=== PATIENT | female | born 1955 | race African-American/Black ===

== ENCOUNTER 2017-01-03 08:27 | Day surgery (SDC) | payer MEDICARE, OTHER ==
[2017-01-02 08:32] VITALS: BMI 59.5
--- NOTE | 2017-01-03 07:55 | P.GSHP ---
History of Present Illness H&P Date: 01/03/17 CHIEF COMPLAINT: Dysphagia with history of gastric bypass HISTORY OF PRESENT ILLNESS: The patient is a 60-year-old female who reports dysphagia with history of gastric bypass. In the past she had upper endoscopy with balloon dilatation. Now she presents for further evaluation and management. PAST MEDICAL HISTORY: See list PAST SURGICAL HISTORY: See list CURRENT MEDICATIONS: See list. ALLERGIES: Nickel SOCIAL HISTORY: No active tobacco use FAMILY HISTORY: Obesity. REVIEW OF ORGAN SYSTEMS: CONSTITUTIONAL: Denies any fever or chills. HEENT: Denies any trouble with vision, hearing or nosebleeds. Has difficulty swallowing. LYMPHATIC: The patient denies any lumps and bumps around the neck. GASTROINTESTINAL: Has gastric bypass with dysphagia. GENITOURINARY: Denies any blood in urine or increased urinary frequency. PHYSICAL EXAMINATION: Vital signs: Stable. GENERAL: Well developed and in no acute distress. Pleasant. HEENT: No sclera icterus. Extraocular movements grossly intact. Moist buccal mucosa. Head is atraumatic, normocephalic. Hears conversational speech. No nasal drainage. NECK: Supple without lymphadenopathy. No JV distention. CHEST: Non-labored respirations and equal bilateral excursions. CARDIOVASCULAR: Regular rate and rhythm. Palpable 2+ radial pulses. ABDOMEN: Nontender. Nondistended. MUSCULOSKELETAL: No clubbing, cyanosis or edema. NEUROLOGIC: No focal or lateralizing signs. PSYCH: Appropriate affect. Alert and oriented to person, place and time. ASSESSMENT: 1. GERD. 2. Dysphagia. 3. History of gastric bypass. PLAN: 1. Recommend upper endoscopy with possible balloon dilation. Past Medical History Past Medical History: Asthma, GERD/Reflux, Hypertension, Rheumatoid Arthritis ( RA), Sleep Apnea/CPAP/BIPAP Additional Past Medical History / Comment(s): HEART MURMUR, ANEMIA, irregular heartbeat, nausea and rt side abdominal pain, rash on rt leg, History of Any Multi-Drug Resistant Organisms: None Reported Past Surgical History: Bariatric Surgery, Joint Replacement, Tonsillectomy, Tubal Ligation, Uterine Ablation Additional Past Surgical History / Comment(s): GASTRIC BYPASS, BRAYAN TOTAL KNEE REPLACEMENT, D&C. Past Anesthesia/Blood Transfusion Reactions: No Reported Reaction Past Psychological History: Anxiety Smoking Status: Never smoker Past Alcohol Use History: None Reported Past Drug Use History: None Reported - Past Family History Father Family Medical History: Cancer Additional Family Medical History / Comment(s): LIVER CANCER Medications and Allergies Home Medications Medication Instructions Recorded Confirmed Type Albuterol Sulfate [Proair Hfa] 2 puff INHALATION Q6HR PRN 02/04/15 01/02/17 History Aspirin 325 mg PO DAILY 02/04/15 01/02/17 History Cyanocobalamin [Vitamin B-12] 1,000 mcg PO DAILY 02/04/15 01/02/17 History Losartan/Hydrochlorothiazide 1 each PO DAILY 02/04/15 01/02/17 History [Hyzaar 100-25 Tablet] Multivitamins, Thera [Theragran] 1 each PO DAILY 02/04/15 01/02/17 History Ergocalciferol [Vitamin D2] 50,000 unit PO QMONTH 11/04/15 01/02/17 History Biotin 5,000 mcg PO DAILY 01/02/17 01/02/17 History Calciumcalcium Magnesium,Zinc 1 tab PO DAILY 01/02/17 01/02/17 History Furosemide [Lasix] 20 mg PO DAILY 01/02/17 01/02/17 History Nystatin [Nystop] 1 applic TOPICAL DAILY 01/02/17 01/02/17 History Omeprazole 20 mg PO BID 01/02/17 01/02/17 History amLODIPine [Norvasc] 5 mg PO DAILY 01/02/17 01/02/17 History tiZANidine HCL 4 mg PO BID PRN 01/02/17 01/02/17 History Allergies Allergy/AdvReac Type Severity Reaction Status Date / Time nickel Allergy Unknown Rash/Hives Verified 01/02/17 08:15
[~2017-01-03 08:27] MED LIST: LACTATED RINGERS 1,000 ML IV SCH
[2017-01-03 09:48] VITALS: RESP 16; TEMP 97.1
[2017-01-03] MEDS ORDERED: LIDOCAINE 1% 20 ML VIAL (10MG/ML) FOR IV START INTRADERMA ONE (09:50)
[2017-01-03] MEDS ORDERED: MIDAZOLAM 2 MG/2 ML VIAL ONE (10:59)
[2017-01-03] MEDS ORDERED: LIDOCAINE 1% INJ 10MG/ML (20 ML MDV) ONE (10:59)
[2017-01-03] MEDS ORDERED: GLYCOPYRROLATE 0.2 MG/ML 2 ML VIAL ONE (10:59)
[2017-01-03] MEDS ORDERED: KETAMINE 10 MG/ML 20 ML VIAL ONE (10:59)
[2017-01-03] MEDS ORDERED: PROPOFOL 10 MG/ML 20 ML VIAL IV ONE (10:59)
[2017-01-03 12:00] VITALS: BP 131/82; PULSE 86
--- NOTE | 2017-01-03 12:28 | P.PCN ---
Date of Procedure: 01/03/17 Description of Procedure: PREOPERATIVE DIAGNOSIS: Dysphagia. s/p Jacobo-en-y gastric bypass. Nausea with vomiting. Morbid obesity. Epigastric abdominal pain. Weight regain following gastric bypass. Body mass index 59.5. POSTOPERATIVE DIAGNOSIS: Dysphagia. s/p Jacobo-en-y gastric bypass. Nausea with vomiting. Morbid obesity. Epigastric abdominal pain. Weight regain following gastric bypass. Body mass index 59.5. Diaphragmatic hiatal hernia. 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 SURGEON: Suzette Packer MD ANESTHESIA: MAC. INDICATIONS: The patient is a 61-year-old female who presents with a history of dysphagia, gastric bypass including epigastric abdominal pain, nausea and vomiting. Benefits and risks of the procedure were described. Informed consent was obtained. DESCRIPTION: The patient was brought into the endoscopy suite and laid in the left lateral decubitus position. After a timeout was confirmed, the procedure was initiated. An Olympus gastroscope was passed along the posterior oropharynx down to the distal esophagus where the squamocolumnar junction was unremarkable. The gastric pouch was entered. A gastrojejunal stricture of 18 mm was found as the adult gastroscope was 9.5 mm in size. A [email or web address] balloon dilator was placed through the scope. Final insufflation up to 20 mm was performed with a total of 1 minute. The scope was advanced up to 60 cm from the incisors into the Jacobo limb. The mucosa of the gastrojejunal anastomosis was intact. However mild chronic gastrojejunal marginal ulcer was encountered. No full-thickness injury was encountered. A Frances junction was found at 40 cm from the incisors. Diaphragmatic hiatus was found at 43 cm from the incisors. The anastomosis was confirmed at 52 cm from the incisors. At the gastric cardia, a persistent tract consistent with gastric fistula was encountered. The GI tract was desufflated. The patient tolerated the procedure well. FINDINGS: Squamocolumnar junction unremarkable at 40 cm. Gastrojejunal stricture of approximately 18 mm. Chronic gastrojejunal ulceration, mild. Successful balloon dilatation to 20 mm. Diaphragmatic hiatus at 43 cm. Anastomosis at 52 cm from the incisors. Diaphragmatic hernia, 3 cm fixed. Large gastric pouch, 9 cm. Small gastric fistula along gastric cardia to gastric pouch. RECOMMENDATIONS: Zantac for 14 days advised. May benefit from revision of gastric pouch. cc: Dr. Rodriguez, [facility] – [place] Plan - Discharge Summary Discharge Medication List Albuterol Sulfate [Proair Hfa] 2 puff INHALATION Q6HR PRN 02/04/15 [History] Aspirin 325 mg PO DAILY 02/04/15 [History] Cyanocobalamin [Vitamin B-12] 1,000 mcg PO DAILY 02/04/15 [History] Losartan/Hydrochlorothiazide [Hyzaar 100-25 Tablet] 1 each PO DAILY 02/04/15 [ History] Multivitamins, Thera [Theragran] 1 each PO DAILY 02/04/15 [History] Hydrocodone/Acetaminophen [[place] 5-325] 1 each PO Q6HR PRN #10 tab 03/29/15 [Rx] Ergocalciferol [Vitamin D2] 50,000 unit PO QMONTH 11/04/15 [History] Biotin 5,000 mcg PO DAILY 01/02/17 [History] Calciumcalcium Magnesium,Zinc 1 tab PO DAILY 01/02/17 [History] Furosemide [Lasix] 20 mg PO DAILY 01/02/17 [History] Nystatin [Nystop] 1 applic TOPICAL DAILY 01/02/17 [History] Omeprazole 20 mg PO BID 01/02/17 [History] amLODIPine [Norvasc] 5 mg PO DAILY 01/02/17 [History] tiZANidine HCL 4 mg PO BID PRN 01/02/17 [History] Follow up Appointment(s)/Referral(s): Suzette Packer MD [STAFF PHYSICIAN] - As Needed Patient Instructions/Handouts: *[facility] - (Anesthesia) Endoscopy Discharge Instructions, Esophageal Dilation (DC) Activity/Diet/Wound Care/Special Instructions: Diet as tolerated Discharge Disposition: HOME SELF-CARE
== END 2017-01-03 12:45 | disposition home or self-care (01) ==
LOC: ORWHC2ENDO 08:27
PROVIDERS: ATTEND Surgery Plastic and Reconstructive Surgery
DX: K31.89 Other diseases of stomach and duodenum (principal); R13.10 Dysphagia, unspecified; K21.9 Gastro-esophageal reflux disease without esophagitis; K44.9 Diaphragmatic hernia without obstruction or gangrene; K31.6 Fistula of stomach and duodenum; R11.2 Nausea with vomiting, unspecified; E66.01 Morbid (severe) obesity due to excess calories; Z68.43 Body mass index [BMI] 50.0-59.9, adult; R10.13 Epigastric pain; Z98.84 Bariatric surgery status; J45.909 Unspecified asthma, uncomplicated; I10 Essential (primary) hypertension; M06.9 Rheumatoid arthritis, unspecified; G47.30 Sleep apnea, unspecified; Z91.09 Other allergy status, other than to drugs and biological substances
CPT/HCPCS: 43245; J2250; J2001; J2704; C1726; 43249

== ENCOUNTER → 2017-01-25 | Outpatient (CLI) | payer MEDICARE, OTHER ==
--- NOTE | 2017-01-25 11:33 | FL ---
EXAMINATION TYPE: FL UGI w KUB DATE OF EXAM: 01/25/2017 9:42 AM COMPARISON: Prior exam 16 April 2015 HISTORY: Gastric fistula, hiatal hernia, abdominal pain TECHNIQUE: A double contrast UGI study is performed. FINDINGS: Swallowing mechanism is normal. The esophagus shows normal motility and emptying into the s tomach. At the level of the distal esophagus there is an outpouching perhaps related to patient's anson zeeshan. This fills with air and contrast. Stomach is small. There is normal transit into the small jordan l. No evident fistula. Possible narrowing of the distal esophagus. IMPRESSION: Postop change as described.
== END | disposition home or self-care (01) ==
LOC: RADFLWHC 08:45
PROVIDERS: ATTEND Family Medicine
DX: K31.6 Fistula of stomach and duodenum (principal); Z98.890 Other specified postprocedural states
CPT/HCPCS: 74241

== ENCOUNTER → 2017-03-28 | Outpatient (CLI) | payer MEDICARE, OTHER ==
--- NOTE | 2017-03-29 11:24 | MM ---
Reason for exam: screening (asymptomatic). Last mammogram was performed 1 year and 2 months ago. History: Patient is postmenopausal. Family history of breast cancer in paternal aunt at age 50. Took hormonal contraceptives for 1 year 6 months beginning at age 19. Took estrogen for 1 month. Physical Findings: A clinical breast exam by your physician is recommended on an annual basis and results should be correlated with mammographic findings. MG 3D Screening Mammo W/Cad Bilateral CC and MLO view(s) were taken. Prior study comparison: January 19, 2016, bilateral MG screening mammo w CAD. October 23, 2013, CAD bilateral diagnostic mammogram. The breast tissue is almost entirely fat. There is no discrete abnormality. No significant changes when compared with prior studies. ASSESSMENT: Negative, BI-RAD 1 RECOMMENDATION: Routine screening mammogram of both breasts in 1 year.
== END | disposition home or self-care (01) ==
LOC: RADMAMWWP 08:07
PROVIDERS: ATTEND Family Medicine
DX: Z12.31 Encounter for screening mammogram for malignant neoplasm of breast (principal)
CPT/HCPCS: 77063; G0202

== ENCOUNTER → 2017-04-10 | Outpatient (CLI) | payer MEDICARE, OTHER ==
--- NOTE | 2017-04-10 11:13 | WWHP ---
DATE OF SERVICE: 04/10/2017 CHIEF COMPLAINT: The patient is here for her routine gynecologic exam. HPI: This is a 62-year-old, G2, P2 with an LMP of 2012. She is status post endometrial ablation in 2012. She is without gynecologic complaints and denies any postmenopausal bleeding. PAST MEDICAL HISTORY: Chronic hypertension, arthritis, sleep apnea, asthma, obesity, and chronic low back pain. MEDICATIONS: 1. Amlodipine 10 mg daily. 2. Losartan hydrochlorothiazide 100/25 mg daily. 3. Furosemide 20 mg daily. 4. Tizanidine HCl 4 mg at bedtime. 5. [place] 10/325 q.6 hours p.r.n. 6. Cyclobenzaprine 10 mg b.i.d. 7. Vitamin D 50,000 units monthly. 8. Multivitamin daily. Allergies to NICKEL. There are no known drug allergies. PAST SURGICAL HISTORY: Tubal ligation, right and left knee replacement surgery, gastric bypass in 2011, D&C in 2012, upper endoscopy with esophageal dilatation 2016. 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 SOCIAL HISTORY: She denies tobacco, alcohol, and drug use. She has been since 1993 and is considered disabled. Family history is unchanged from the 2016 H&P. REVIEW OF SYSTEMS: She has gained about 35 pounds over the last year. This was after losing about 250 pounds after her gastric bypass. She denies respiratory or cardiac problems. GI: She occasionally feels like she does not completely evacuate her bowels with bowel movement. PHYSICAL EXAM: Blood pressure 133/80. Height 5 feet 7 inches. Weight 385 pounds. Temperature 98.4, pulse 78. This is a well-developed, obese black female who is alert and oriented x3 in no acute distress. HEENT is within normal limits. NECK: Supple without mass or thyromegaly. CHEST AND LUNGS: Clear to auscultation. HEART: Regular rate and rhythm. Breasts are without mass or discharge. Axillary exam is negative for adenopathy. BACK: Negative for CVA tenderness. ABDOMEN: Morbidly obese, soft, nontender, without palpable masses. PELVIC EXAM: External genitalia appears normal without significant atrophy. Cervix and vagina appear normal without significant atrophy. There is no evidence of vaginal prolapse. The uterus is midposition, nongravid size and nontender. There are no palpable adnexal masses or tenderness. Bimanual examination is somewhat limited secondary to her size. Rectovaginal exam is negative for mass or tenderness and is negative for occult blood. EXTREMITIES: Nontender. IMPRESSION: 1. A 62-year-old menopausal female with normal gynecologic exam. 2. Obesity. PLAN: 1. Pap smear was deferred, since she had a negative Pap smear in 2016. 2. Self breast examination was discussed. 3. Mammogram was recently done on 03/28/2017 and was negative. She will repeat this in one year. 4. Osteoporosis prevention was discussed. I have recommended bone density screening since she has never had this done, and a slip was given to patient for this. 5. I recommended screening colonoscopy since she believes she either has not had this done or it has been more than 10 years. She states she will see Dr. Packer for this. 6. She will return in one year.
== END | disposition home or self-care (01) ==
LOC: WWCWWP 08:15
PROVIDERS: ATTEND Obstetrics & Gynecology
DX: Z53.9 Procedure and treatment not carried out, unspecified reason (principal)

== ENCOUNTER → 2017-05-08 | Outpatient (CLI) | payer MEDICARE, OTHER ==
--- NOTE | 2017-05-08 10:56 | BD ---
EXAMINATION TYPE: MG DEXA axial skeleton. DATE OF EXAM: 05/08/2017 COMPARISON: NONE CLINICAL HISTORY: Z78.0 POSTMENOPAUSAL STATUS Height: 66 Weight: 391 FRAX RISK QUESTIONS: Alcohol (3 or more units per day): NO Family History (Parent hip fracture): NO Glucocorticoids (More than 3mos): YES (Ex: prednisone, prednisolone, methylprednisolone, dexamethasone, and hydrocortisone). History of Fracture in Adulthood: NO Secondary Osteoporosis: NO 1. Type 1 Diabetes: NO 2. Hyperthyroidism: NO 3. Menopause before 45: NO 4. Malnutrition: NO 5. Chronic liver disease: NO Rheumatoid Arthritis: NO Current Tobacco Use: NO RISK FACTORS HISTORY OF: Family History of Osteoporosis: NO Active: SOMEWHAT Diet low in dairy products/other sources of calcium: NO Postmenopausal woman: 52 Hyperparathyroidism: LONG TIME AGO Adrenal Insufficiency: NO MEDICATIONS: Prednisone or other steroids: ASTHMA INHALERS AND PREDNISONE FOR ASTHMA How Long: FOR YRS Additional Medications: BP MEDS, XANAX, CALCIUM AND VIT D, REFLUX MEDS Additional History: BILAT TKRS EXAM MEASUREMENTS: Bone mineral densitometry was performed using the [employer]. Bone mineral density as measured about the Lumbar spine is: ----- L1-L4(G/cm2): 1.550 T Score Values are as follows: ----- L1: 2.5 ----- L2: 2.1 ----- L3: 3.2 ----- L4: 4.1 ----- L1-L4: 3.1 Bone mineral density THIS IS HER FIRST BONE DENSITY TEST.....BASELINE STUDY Bone mineral density about the R hip (g/cm2): 1.154 Bone mineral density about the L hip (g/cm2): 1.138 T Score values are as follows: -----R Neck: 0.7 -----L Neck: 0.2 -----R Total: 1.2 -----L Total: 1.0 Bone mineral density BASELINE STUDY FOR HER.... FRAX %'S: THERE IS A 1.9% CHANCE OF A MAJOR OSTEOPOROTIC FX AND A 0.0% CHANCE OF A HIP FX......PRO BABILITY IN 10 YRS TIME IMPRESSION: Normal (Values between +1 and -1 indicate normal bone mass). Consider repeating this study in 5 year s or sooner if there is some new clinical indication. FOR BOTH HIPS AND LUMBAR SPINE NOTE: T-SCORE=SD OF THE YOUNG ADULT MEAN.
== END | disposition home or self-care (01) ==
LOC: RADBDWWP 08:23
PROVIDERS: ATTEND Obstetrics & Gynecology
DX: Z78.0 Asymptomatic menopausal state (principal)
CPT/HCPCS: 77080

== ENCOUNTER → 2018-04-09 | Outpatient (CLI) | payer MEDICARE, OTHER ==
[2018-04-09 09:44] VITALS: BP 115/70; PULSE 63; TEMP 98.4; BMI 53.2
--- NOTE | 2018-04-09 10:27 | P.HPOB ---
History of Present Illness H&P Date: 04/09/18 Chief Complaint: The patient is here for her routine gynecologic exam and mammogram. This is a 63-year-old with an LMP of 2012. The patient is has noticed 2 boils in the groin area. She has noticed this recently and states she does not frequently get these boils. She is otherwise without complaints and denies any postmenopausal bleeding. Review of Systems Patient has lost 45 pounds over the last year. This has been with diet and exercise. She denies respiratory, cardiac, or G.I. problems. Past Medical History Past Medical History: Asthma, GERD/Reflux, Hypertension, Rheumatoid Arthritis ( RA), Sleep Apnea/CPAP/BIPAP Additional Past Medical History / Comment(s): HEART MURMUR, ANEMIA. Arthritis, sleep apnea, and chronic back pain. 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 She did have an endometrial ablation in 2012. History of Any Multi-Drug Resistant Organisms: None Reported Past Surgical History: Bariatric Surgery (Gastric bypass 2011), Joint Replacement (Bilateral knee replacement), Tonsillectomy, Tubal Ligation, Uterine Ablation Additional Past Surgical History / Comment(s): BRAYAN TOTAL KNEE REPLACEMENT, D&C. Upper endoscopy with esophageal dilatation 2016. Past Anesthesia/Blood Transfusion Reactions: No Reported Reaction Past Psychological History: Anxiety Smoking Status: Never smoker Past Alcohol Use History: None Reported Past Drug Use History: None Reported Additional History: She has been since 1993 and is disabled. - Past Family History Father Family Medical History: Cancer (Liver) Additional Family Medical History / Comment(s): Paternal aunt had breast cancer and an uncle had colon cancer. Mother Family Medical History: Diabetes Mellitus Medications and Allergies Home Medications Medication Instructions Recorded Confirmed Type Albuterol Sulfate [Proair Hfa] 2 puff INHALATION Q6HR PRN 02/04/15 04/09/18 History Aspirin 325 mg PO DAILY 02/04/15 04/03/18 History Cyanocobalamin [Vitamin B-12] 1,000 mcg PO DAILY 02/04/15 04/09/18 History Losartan/Hydrochlorothiazide 1 each PO DAILY 02/04/15 04/09/18 History [Hyzaar 100-25 Tablet] Multivitamins, Thera [Theragran] 1 each PO DAILY 02/04/15 04/09/18 History Ergocalciferol [Vitamin D2] 50,000 unit PO QMONTH 11/04/15 04/09/18 History Biotin 5,000 mcg PO DAILY 01/02/17 04/09/18 History Calciumcalcium Magnesium,Zinc 1 tab PO DAILY 01/02/17 04/09/18 History Furosemide [Lasix] 20 mg PO DAILY 01/02/17 04/09/18 History Nystatin [Nystop] 1 applic TOPICAL DAILY 01/02/17 04/09/18 History Omeprazole 20 mg PO BID 01/02/17 04/09/18 History amLODIPine [Norvasc] 5 mg PO DAILY 01/02/17 04/09/18 History B12/Levomefolate Calcium/B-6 tab PO DAILY 04/03/18 History [Foltx Tablet] Baclofen mg PO HS 04/03/18 History Benzoyl Peroxide [Benzac AC Wash] applicator TOPICAL DAILY 04/03/18 History Budesonide/Formoterol Fumarate gm INHALATION BID 04/03/18 History [Symbicort 80-4.5 Mcg Inhaler] Clindamycin Gel [Clindamycin applicator TOPICAL BID 04/03/18 History Phosphate] Dimethicone/Zinc Oxide [Inzo Zinc ml TOPICAL BID 04/03/18 History Oxide Barrier Cream] Magnesium Oxide mg PO DAILY 04/03/18 History Naproxen mg PO BID 04/03/18 History Triamcinolone 0.1% Ointment applicator TOPICAL BID 04/03/18 History [Kenalog 0.1% Ointment] oxyCODONE-APAP 10-325MG [Percocet tab PO Q6HR 04/03/18 History 10-325 mg] Allergies Allergy/AdvReac Type Severity Reaction Status Date / Time nickel Allergy Unknown Rash/Hives Verified 04/09/18 09:38 Exam - Vital Signs Vital signs: Vital Signs Temp Pulse BP 04/09/18 09:39 98.4 F 63 115/70 Intake and Output 04/08/18 04/09/18 04/09/18 22:59 06:59 14:59 Other: Weight 154.221 kg Height 5'7", BMI 53.3. This is a well-developed well-nourished obese black female who is alert and oriented times 3 in no acute distress. HEENT: Within normal limits. NECK: Supple without mass or thyromegaly. CHEST AND LUNGS: Clear to auscultation. HEART: Regular rate and rhythm. BREASTS: Are without mass or discharge. AXILLARY EXAM: Negative for adenopathy. BACK: Negative for CVA tenderness. ABDOMEN: obese, soft, nontender, without palpable masses. There is a large low abdominal panus. PELVIC EXAM: Normal external genitalia with minimal atrophy. There are 2 boils noted that the left buttock near the groin measuring 1.5 cm and one in the right groin area lateral to the right labia majora which also measures 1.5 cm. They both appear benign and non-erythematous. There is no drainage and no ulceration.. Cervix and vagina appear normal with minimal atrophy. There is no unusual discharge. There is no evidence of prolapse. The uterus is midposition , nongravid size and nontender. There are no palpable adnexal masses or tenderness. Bimanual examination somewhat limited secondary to her size. RECTAL EXAM: rectovaginal exam is negative for mass or tenderness and is negative for occult blood. EXTREMITIES: Nontender. IMPRESSION: 1. 63-year-old menopausal female with 2 benign appearing boils in the groin and buttock areas. Otherwise unremarkable gynecologic exam. 2. Multiple medical problems. PLAN: 1. Pap smear was performed. 2. self breast awareness was discussed. 3. Screening mammogram will be done today. 4. osteoporosis prevention was discussed. 5. Screening colonoscopy was recommended. She will discuss this with her primary care physician, Dr. Mcneil. 6. She use warm compresses on the boils. She'll also use Neosporin PRN. 7. She will return in one year.
--- NOTE | 2018-04-10 10:19 | MM ---
Reason for exam: screening (asymptomatic). Last mammogram was performed 1 year ago. History: Patient is postmenopausal. Family history of breast cancer in paternal aunt at age 50. Took hormonal contraceptives for 1 year 6 months beginning at age 19. Took estrogen for 1 month. Physical Findings: A clinical breast exam by your physician is recommended on an annual basis and results should be correlated with mammographic findings. MG 3D Screening Mammo W/Cad Bilateral CC, MLO, and XCCL view(s) were taken. Prior study comparison: March 28, 2017, bilateral MG 3d screening mammo w/cad. January 19, 2016, bilateral MG screening mammo w CAD. There are scattered fibroglandular densities. Benign appearing bilateral calcifications. No suspicious abnormality. No significant changes when compared with prior studies. ASSESSMENT: Benign, BI-RAD 2 RECOMMENDATION: Routine screening mammogram of both breasts in 1 year.
== END | disposition home or self-care (01) ==
LOC: WWCWWP 08:49
PROVIDERS: ATTEND Obstetrics & Gynecology
DX: Z12.31 Encounter for screening mammogram for malignant neoplasm of breast (principal)
CPT/HCPCS: 77063; 77067

== ENCOUNTER → 2018-11-13 | Outpatient (CLI) | payer MEDICARE, OTHER ==
[2018-11-13 13:53] VITALS: BP 162/84; PULSE 96; TEMP 98.6; BMI 54.8
--- NOTE | 2018-11-13 14:26 | P.HPBAR ---
Bariatric H&P - History & Physicial H&P Date: 11/13/18 History & Physicial: Visit/CC: bariatric consult Patient initial contact: Initial weight: 160.163 kg Initial weight in pounds: 353.10 Height: 5 ft 7.25 in Initial BMI: 54.8 Last weight: Current weight: 160.163 kg Current weight in pounds: 353.10 Current BMI: 54.8 [place] body weight (based on NIH guidelines): 61.802 kg Excess body weight loss: 0.0% The patient is a 63 year-old F who presents for Bariatric Assessment. HPI: She is looking skin removal surgery. Highest personal weight of 592 pounds. Surgery done [address] Tripathi and last seen in 2.5 years. Skin of the arms and legs. Her lowest weight after surgery of 330 pounds. She is looking into more weight loss. She wants to get down to 250 pounds looking 75 to 100 pound weight loss. Food is still getting. She has troubles drinking liquids. Protein intake is low. She reports pulling along the back and hips. Nystatin powder over 5+ years without relief. ABDOMEN: 25+ pounds of pannus PLAN: 1. Check labs 2. Meet with dietitian for inadequate nutrition 3. Needs EGD for stretch 4. Panniculectomy 5. Need pictures of skin Past Medical History Past Medical History: Asthma, GERD/Reflux, Hypertension, Rheumatoid Arthritis ( RA), Sleep Apnea/CPAP/BIPAP Additional Past Medical History / Comment(s): HEART MURMUR, ANEMIA. Arthritis, sleep apnea, and chronic back pain. 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 She did have an endometrial ablation in 2012. History of Any Multi-Drug Resistant Organisms: None Reported Past Surgical History: Bariatric Surgery, Joint Replacement, Tonsillectomy, Tubal Ligation, Uterine Ablation Additional Past Surgical History / Comment(s): BRAYAN TOTAL KNEE REPLACEMENT, D&C. Upper endoscopy with esophageal dilatation 2016, gastric bypass performed at [facility] in [place] in 2013 Past Anesthesia/Blood Transfusion Reactions: No Reported Reaction Past Psychological History: Anxiety Smoking Status: Never smoker Past Alcohol Use History: None Reported Past Drug Use History: None Reported - Past Family History Mother Family Medical History: Diabetes Mellitus Father Family Medical History: Cancer Additional Family Medical History / Comment(s): Paternal aunt had breast cancer and an uncle had colon cancer. Surgical - Exam Vital Signs Temp Pulse BP 98.6 F 96 162/84 11/13/18 13:22 11/13/18 13:22 11/13/18 13:22 Bariatric Checklist Checklist: Plan: Checklist: EGD: 1. Hiatal hernia: 2. H. Pylori: HgbA1c: Vitamin D: Smoking: Never smoker Primary care physician referral: shelbie murdock Psychiatry clearance: Cardiology clearance: Sleep study: Diet journal: VTE risk score: VTE risk level: Rehab needs at discharge:
[2018-11-13 16:33] LABS: HCT 40.9 % (34.0-46.0); HGB 13.2 gm/dL (11.4-16.0); MCH 27.3 pg (25.0-35.0); MCHC 32.2 g/dL (31.0-37.0); MCV 84.8 fL (80.0-100.0); Mean Platelet Volume 7.8; Platelet Count 241 k/uL (150-450); RBC 4.82 m/uL (3.80-5.40); RDW 14.3 % (11.5-15.5); WBC 8.9 k/uL (3.8-10.6)
[2018-11-13 16:37] LABS: INR 0.9 (<1.2); Partial Thromboplastin Time 26.2 sec (22.0-30.0); Prothrombin Time 9.7 sec (9.0-12.0)
[2018-11-14 02:53] LABS: Iron Saturation 11.42 (12.00-45.00)
[2018-11-14 03:02] LABS: Vitamin D 25 Hydroxy 30.9 ng/mL (30.0-100.0)
[2018-11-14 04:07] LABS: Anion Gap 8.1 mmol/L (4.00-12.00); Calcium 8.9 mg/dL (8.7-10.3); Carbon Dioxide 29.9 mmol/L (21.6-31.8); Phosphorus 3.4 mg/dL (2.4-5.1); Potassium 3.8 mmol/L (3.5-5.5); Total Bilirubin 0.2 mg/dL (0.3-1.2)
[2018-11-14 04:14] LABS: Folate, Serum 17.4 ng/mL
[2018-11-14 04:54] LABS: Parathyroid Hormone Intact 98.8 pg/mL (14.0-72.0)
[2018-11-14 05:01] LABS: Hemoglobin A1C 5.4 % (4.0-6.0)
[2018-11-14 13:28] LABS: Zinc, Serum 46 ug/dL (60-130)
[2018-11-15 04:31] LABS: Vitamin B1 70 ug/L (38-122)
[2018-11-15 04:41] LABS: Vitamin A 39 ug/dL (38-106)
== END | disposition home or self-care (01) ==
LOC: BARWHC3 12:57
PROVIDERS: ATTEND Surgery Plastic and Reconstructive Surgery
DX: E66.01 Morbid (severe) obesity due to excess calories (principal); E21.1 Secondary hyperparathyroidism, not elsewhere classified; E89.1 Postprocedural hypoinsulinemia; D50.9 Iron deficiency anemia, unspecified; K90.9 Intestinal malabsorption, unspecified; E55.9 Vitamin D deficiency, unspecified; K76.9 Liver disease, unspecified; N19 Unspecified kidney failure; K50.90 Crohn's disease, unspecified, without complications; Z68.43 Body mass index [BMI] 50.0-59.9, adult
CPT/HCPCS: 84255; 84134; 84425; 80061; 80053; 82607; 82728; 82525; 82746; 83540; 83550; 83735; 84100; 84443; 84590; 84630; 85027; 85610; 85730; 82306; 83970; 83036; 97802; 36415; G0463; 99211

== ENCOUNTER 2019-02-26 09:36 | Day surgery (SDC) | payer MEDICARE, OTHER ==
[2019-02-24 10:24] VITALS: BMI 54.0
--- NOTE | 2019-02-26 08:37 | P.GSHP ---
History of Present Illness H&P Date: 02/26/19 CHIEF COMPLAINT: GERD HISTORY OF PRESENT ILLNESS: The patient is a 64-year-old female who presents reports gastroesophageal reflux disease. Upper endoscopy was offered for further evaluation and management. PAST MEDICAL HISTORY: Please see list. PAST SURGICAL HISTORY: Please see list. MEDICATIONS: Please see list. ALLERGIES: Please see list. SOCIAL HISTORY: No illicit drug use FAMILY HISTORY: No reports of Crohn disease or ulcerative colitis. REVIEW OF ORGAN SYSTEMS: CONSTITUTIONAL: No reports of fevers or chills. GI: Denies any blood in stools or constipation. PHYSICAL EXAM: VITAL SIGNS: Stable GENERAL: Well-developed and pleasant in no acute distress. HEENT: No scleral icterus. Extraocular movements grossly intact. Moist buccal mucosa. NECK: Supple without lymphadenopathy. CHEST: Unlabored respirations. Equal bilateral excursions. CARDIOVASCULAR: Regular rate and rhythm. Distal 2+ pulses. ABDOMEN: Soft, nondistended. MUSCULOSKELETAL: No clubbing, cyanosis, or edema. ASSESSMENT: 1. Gastroesophageal reflux disease PLAN: 1. Recommend proceeding with an upper endoscopy Past Medical History Past Medical History: Asthma, GERD/Reflux, Hypertension, Rheumatoid Arthritis (RA), Sleep Apnea/CPAP/BIPAP Additional Past Medical History / Comment(s): HEART MURMUR, ANEMIA. Arthritis, sleep apnea, and chronic back pain. History of Any Multi-Drug Resistant Organisms: None Reported Past Surgical History: Bariatric Surgery, Joint Replacement, Tonsillectomy, Tubal Ligation, Uterine Ablation Additional Past Surgical History / Comment(s): BRAYAN TOTAL KNEE REPLACEMENT, D&C. Upper endoscopy with esophageal dilatation 2016, gastric bypass performed at [facility] in [place] in 2013 Past Anesthesia/Blood Transfusion Reactions: No Reported Reaction Smoking Status: Never smoker - Past Family History Mother Family Medical History: Diabetes Mellitus Father Family Medical History: Cancer Additional Family Medical History / Comment(s): DAD LIVER CA, Paternal aunt had breast cancer and an uncle had colon cancer. Medications and Allergies Home Medications Medication Instructions Recorded Confirmed Type Albuterol Sulfate [Proair Hfa] 2 puff INHALATION Q6HR PRN 02/04/15 02/24/19 History Aspirin 325 mg PO DAILY 02/04/15 02/24/19 History Cyanocobalamin [Vitamin B-12] 1,000 mcg PO DAILY 02/04/15 02/24/19 History Losartan/Hydrochlorothiazide 1 each PO DAILY 02/04/15 02/24/19 History [Hyzaar 100-25 Tablet] Multivitamins, Thera [Theragran] 1 each PO DAILY 02/04/15 02/24/19 History Ergocalciferol [Vitamin D2] 50,000 unit PO QMONTH 11/04/15 02/24/19 History Biotin 5,000 mcg PO DAILY 01/02/17 02/24/19 History Calciumcalcium Magnesium,Zinc 1 tab PO DAILY 01/02/17 02/24/19 History Furosemide [Lasix] 20 mg PO DAILY 01/02/17 02/24/19 History Nystatin [Nystop] 1 applic TOPICAL DAILY 01/02/17 02/24/19 History Omeprazole 20 mg PO BID 01/02/17 02/24/19 History amLODIPine [Norvasc] 5 mg PO DAILY 01/02/17 02/24/19 History B12/Levomefolate Calcium/B-6 1 tab PO DAILY 04/03/18 02/24/19 History [Foltx Tablet] Baclofen 10 mg PO HS 04/03/18 02/24/19 History Budesonide/Formoterol Fumarate 1 puff INHALATION BID 04/03/18 02/24/19 History [Symbicort 80-4.5 Mcg Inhaler] Clindamycin Gel [Clindamycin 1 applicator TOPICAL BID 04/03/18 02/24/19 History Phosphate 1% Gel] Dimethicone/Zinc Oxide [Inzo Zinc 1 applic TOPICAL BID 04/03/18 02/24/19 History Oxide Barrier Cream] Magnesium Oxide 400 mg PO DAILY 04/03/18 02/24/19 History oxyCODONE-APAP 10-325MG [Percocet 1 tab PO Q6HR 04/03/18 02/24/19 History 10-325 mg] Allergies Allergy/AdvReac Type Severity Reaction Status Date / Time nickel Allergy Unknown Rash/Hives Verified 02/24/19 10:21
[2019-02-26 09:55] VITALS: TEMP 99.2
[2019-02-26] MEDS ORDERED: LIDOCAINE 1% 20 ML VIAL (10MG/ML) FOR IV START INTRADERMA ONE (09:58)
[2019-02-26] MEDS ORDERED: PROPOFOL 10 MG/ML 20 ML VIAL IV ONE (11:07)
[2019-02-26] MEDS ORDERED: KETAMINE 10 MG/ML 20 ML VIAL ONE (11:07)
[2019-02-26] MEDS ORDERED: LIDOCAINE 1% INJ 10MG/ML (20 ML MDV) ONE (11:07)
[2019-02-26] MEDS ORDERED: GLYCOPYRROLATE 0.2 MG/ML 2 ML VIAL ONE (11:07)
--- NOTE | 2019-02-26 11:28 | P.PCN ---
Date of Procedure: 02/26/19 Description of Procedure: PREOPERATIVE DIAGNOSIS: Dysphagia. s/p Jacobo-en-y gastric bypass. Nausea with vomiting. Morbid obesity. POSTOPERATIVE DIAGNOSIS: Dysphagia. s/p Jacobo-en-y gastric bypass. Nausea with vomiting. Morbid obesity. Diaphragmatic hiatal hernia OPERATION: Esophagogastrojejunoscopy with balloon dilatation from 18 to 20 mm. SURGEON: Suzette Packer MD ANESTHESIA: MAC. INDICATIONS: The patient is a 64-year-old female who presents with a history of dysphagia, gastric bypass and gastroesophageal reflux disease. Benefits and risks of the procedure were described. Informed consent was obtained. DESCRIPTION: The patient was brought into the endoscopy suite and laid in the left lateral decubitus position. After a timeout was confirmed, the procedure was initiated. An Olympus gastroscope was passed along the posterior oropharynx down to the distal esophagus where the squamocolumnar junction was unremarkable. The gastric pouch was entered. A gastrojejunal stricture of 18 mm was found as the adult gastroscope was 9.5 mm in size. A A [place] balloon dilator was placed through the scope. Final insufflation up to 20 mm was performed with a total of 2 minutes. The scope was advanced up to 60 cm from the incisors into the Jacobo limb. The mucosa of the gastrojejunal anastomosis was intact. No gastrojejunal marginal ulcer was encountered. No full-thickness injury was encountered. A large diaphragmatic hernia was identified 6 cm in size including 8 cm gastric pouch. The GI tract was desufflated. The patient tolerated the procedure well. FINDINGS: Squamocolumnar junction unremarkable at 36 cm. Stricture of approximately 18 mm encountered. No gastrojejunal ulceration encountered. Successful balloon dilatation to 20 mm. Diaphragmatic hiatus at 42 cm. Gastric pouch 8 cm. Diaphragmatic hiatal hernia 6 cm LA grade A erosive esophagitis RECOMMENDATIONS: Upper endoscopy as needed May benefit from hiatal hernia repair Plan - Discharge Summary Discharge Rx Participant: No New Discharge Prescriptions: No Action Losartan/Hydrochlorothiazide [Hyzaar 100-25 Tablet] 1 each PO DAILY Cyanocobalamin [Vitamin B-12] 1,000 mcg PO DAILY Albuterol Sulfate [Proair Hfa] 2 puff INHALATION Q6HR PRN PRN Reason: Shortness Of Breath Multivitamins, Thera [Theragran] 1 each PO DAILY Aspirin 325 mg PO DAILY Ergocalciferol [Vitamin D2] 50,000 unit PO QMONTH Omeprazole 20 mg PO BID Nystatin [Nystop] 1 applic TOPICAL DAILY Furosemide [Lasix] 20 mg PO DAILY amLODIPine [Norvasc] 5 mg PO DAILY Calciumcalcium Magnesium,Zinc 1 tab PO DAILY Biotin 5,000 mcg PO DAILY oxyCODONE-APAP 10-325MG [Percocet 10-325 mg] 1 tab PO Q6HR Magnesium Oxide 400 mg PO DAILY Dimethicone/Zinc Oxide [Inzo Zinc Oxide Barrier Cream] 1 applic TOPICAL BID Clindamycin Gel [Clindamycin Phosphate 1% Gel] 1 applicator TOPICAL BID Budesonide/Formoterol Fumarate [Symbicort 80-4.5 Mcg Inhaler] 1 puff INHALATION BID Baclofen 10 mg PO HS B12/Levomefolate Calcium/B-6 [Foltx Tablet] 1 tab PO DAILY Discharge Medication List Albuterol Sulfate [Proair Hfa] 2 puff INHALATION Q6HR PRN 02/04/15 [History] Aspirin 325 mg PO DAILY 02/04/15 [History] Cyanocobalamin [Vitamin B-12] 1,000 mcg PO DAILY 02/04/15 [History] Losartan/Hydrochlorothiazide [Hyzaar 100-25 Tablet] 1 each PO DAILY 02/04/15 [History] Multivitamins, Thera [Theragran] 1 each PO DAILY 02/04/15 [History] Ergocalciferol [Vitamin D2] 50,000 unit PO QMONTH 11/04/15 [History] Biotin 5,000 mcg PO DAILY 01/02/17 [History] Calciumcalcium Magnesium,Zinc 1 tab PO DAILY 01/02/17 [History] Furosemide [Lasix] 20 mg PO DAILY 01/02/17 [History] Nystatin [Nystop] 1 applic TOPICAL DAILY 01/02/17 [History] Omeprazole 20 mg PO BID 01/02/17 [History] amLODIPine [Norvasc] 5 mg PO DAILY 01/02/17 [History] B12/Levomefolate Calcium/B-6 [Foltx Tablet] 1 tab PO DAILY 04/03/18 [History] Baclofen 10 mg PO HS 04/03/18 [History] Budesonide/Formoterol Fumarate [Symbicort 80-4.5 Mcg Inhaler] 1 puff INHALATION BID 04/03/18 [History] Clindamycin Gel [Clindamycin Phosphate 1% Gel] 1 applicator TOPICAL BID 04/03/18 [History] Dimethicone/Zinc Oxide [Inzo Zinc Oxide Barrier Cream] 1 applic TOPICAL BID 04/03/18 [History] Magnesium Oxide 400 mg PO DAILY 04/03/18 [History] oxyCODONE-APAP 10-325MG [Percocet 10-325 mg] 1 tab PO Q6HR 04/03/18 [History]
[2019-02-26 11:31] VITALS: PULSE 89
[2019-02-26 11:47] VITALS: BP 128/67; RESP 16
== END 2019-02-26 12:05 | disposition home or self-care (01) ==
LOC: ORWHC2ENDO 09:36
PROVIDERS: ATTEND Surgery Plastic and Reconstructive Surgery
DX: R13.10 Dysphagia, unspecified (principal); K21.0 Gastro-esophageal reflux disease with esophagitis; E66.01 Morbid (severe) obesity due to excess calories; K44.9 Diaphragmatic hernia without obstruction or gangrene; Z79.82 Long term (current) use of aspirin; Z98.84 Bariatric surgery status; J45.909 Unspecified asthma, uncomplicated; I10 Essential (primary) hypertension; M06.9 Rheumatoid arthritis, unspecified; G47.30 Sleep apnea, unspecified; Z99.89 Dependence on other enabling machines and devices; G89.29 Other chronic pain; M54.9 Dorsalgia, unspecified; Z96.653 Presence of artificial knee joint, bilateral; Z79.899 Other long term (current) drug therapy; Z88.8 Allergy status to other drugs, medicaments and biological substances; Z68.43 Body mass index [BMI] 50.0-59.9, adult
CPT/HCPCS: 43245; J2001; J2704; C1726

== ENCOUNTER → 2019-04-02 | Outpatient (CLI) | payer MEDICARE, OTHER ==
[2019-04-02 14:47] VITALS: BP 135/78; PULSE 68; TEMP 98.6; BMI 56.2
--- NOTE | 2019-04-02 15:02 | P.PN ---
Subjective Progress Note Date: 04/02/19 DATE OF SERVICE: 04/02/2019 CHIEF COMPLAINT: Morbid obesity HISTORY OF PRESENT ILLNESS: Mar Mobley is a 64-year-old female who comes in with lifelong morbid obesity. Her highest was 600 pounds. She comes in at 361 pounds from 362 pounds, 5 months ago. She has gained 9 pounds. She reports pain with eating. She has weight gain and she wants to loose weight. She reports in her family with loss of focus. She had gastric bypass done [address] Tripathi at [facility]. At height of 5 feet 7.25 inches, her ideal body weight is 158 pounds. She comes in 361 pounds from 352 pounds, 5 months ago. She has gained 9 pounds in 5 months. Her highest weight was 600 pounds. She has lost 239 pounds. Her body mass index highest was 93.5. Today her BMI is 56.3. Percent excess weight loss is 54%. She is 203 pounds overweight. PAST MEDICAL HISTORY: 1. Morbid obesity due to excess calories 2. Body mass index of 93.5, initial 3. Osteoarthritis of the knees. 4. Rheumatoid arthritis 5. Osteoarthritis of the lower back. 6. Hypertensive heart disease. 7. Chronic pain syndrome 8. Gastroesophageal reflux disease 9. Chronic panniculitis 10. Asthma 11. Chronic obstructive pulmonary disorder 12. Obstructive sleep apnea 13. Anxiety disorder 14. Congestive heart failure PAST SURGICAL HISTORY: 1. Gastric bypass 2. Bilateral total knee replacement 3. Tubal ligation 4. Uterine ablation 5. D&C HOME MEDICATIONS: ALLERGIES: Home Medications Medication Instructions Recorded Confirmed Type Albuterol Sulfate [Proair Hfa] 2 puff INHALATION Q6HR PRN 02/04/15 04/09/18 History Aspirin 325 mg PO DAILY 02/04/15 04/03/18 History Cyanocobalamin [Vitamin B-12] 1,000 mcg PO DAILY 02/04/15 04/09/18 History Losartan/Hydrochlorothiazide 1 each PO DAILY 02/04/15 04/09/18 History [Hyzaar 100-25 Tablet] Multivitamins, Thera [Theragran] 1 each PO DAILY 02/04/15 04/09/18 History Ergocalciferol [Vitamin D2] 50,000 unit PO QMONTH 11/04/15 04/09/18 History Biotin 5,000 mcg PO DAILY 01/02/17 04/09/18 History Calciumcalcium Magnesium,Zinc 1 tab PO DAILY 01/02/17 04/09/18 History Furosemide [Lasix] 20 mg PO DAILY 01/02/17 04/09/18 History Nystatin [Nystop] 1 applic TOPICAL DAILY 01/02/17 04/09/18 History Omeprazole 20 mg PO BID 01/02/17 04/09/18 History amLODIPine [Norvasc] 5 mg PO DAILY 01/02/17 04/09/18 History B12/Levomefolate Calcium/B-6 tab PO DAILY 04/03/18 History [Foltx Tablet] Baclofen mg PO HS 04/03/18 History Budesonide/Formoterol Fumarate gm INHALATION BID 04/03/18 History [Symbicort 80-4.5 Mcg Inhaler] Clindamycin Gel [Clindamycin applicator TOPICAL BID 04/03/18 History Phosphate 1% Gel] Dimethicone/Zinc Oxide [Inzo Zinc ml TOPICAL BID 04/03/18 History Oxide Barrier Cream] Magnesium Oxide mg PO DAILY 04/03/18 History Triamcinolone 0.1% Ointment applicator TOPICAL BID 04/03/18 History [Kenalog 0.1% Ointment] oxyCODONE-APAP 10-325MG [Percocet tab PO Q6HR 04/03/18 History 10-325 mg] Allergies Allergy/AdvReac Type Severity Reaction Status Date / Time nickel Allergy Unknown Rash/Hives Verified 04/09/18 09:38 SOCIAL HISTORY: No past tobacco use. FAMILY HISTORY: No family history of ulcerative colitis disease or Crohn's disease. Family history of morbid obesity. No lupus in the family. No reports of stomach or esophageal cancer. REVIEW OF ORGAN SYSTEMS: CONSTITUTIONAL: At height of 5 feet 7.25 inches, her ideal body weight is 158 pounds. Her highest weight was 600 pounds. Her body mass index highest was 93.5. HEENT: Denies any active troubles with vision or hearing. Has troubles with swallowing. ENDOCRINE: No diabetes. No hypothyroidism. CARDIOVASCULAR: No reports of palpitations or heart attacks or chest pain. Has heart murmur RESPIRATORY: Has daytime somnolence. Has asthma. GI: Denies any bright red blood per rectum. No diarrhea. No constipation. MUSCULOSKELETAL: Has lower back pain and joint pain. Has osteoarthritis of the knees. History of bilateral lower extremity edema. NEURO: No headaches. No seizure disorders. Has chronic pain. PSYCH: No depression. No suicidal ideation. Has anxiety. RHEUMATOLOGIC: No lupus. Has rheumatoid arthritis. HEMATOLOGIC: Denies any abnormal bleeding or bruising. No personal history of DVTs. SKIN: Has chronic panniculitis. No skin cancer. PHYSICAL EXAM: VITAL SIGNS: Height 5 foot 7.25 inches, weight 361 pounds. BMI 56.3 Vital Signs Temp 98.6 F 04/02/19 14:30 Pulse 68 04/02/19 14:30 Resp BP 135/78 04/02/19 14:30 Pulse Ox GENERAL: Well-developed in no acute distress. HEENT: No scleral icterus. Extraocular movements grossly intact. Hears conversational speech. No nasal drainage. NECK: Supple without lymphadenopathy. CHEST: Nonlabored respirations with equal bilateral excursions. CARDIOVASCULAR: Regular rate and regular rhythm. Distal 2+ pulses. ABDOMEN: Obese, soft, nontender, nondistended. MUSCULOSKELETAL: No clubbing, cyanosis. Gross strength 5/5 distal lower extremities. NEURO: No focal or lateralizing signs. Cranial nerves 2 through 12 grossly within normal limits. PSYCH: Appropriate affect. Alert and oriented to person, place and time. SKIN: Good skin turgor. Well perfused. LABS: Reviewed. Iron is low. PTH is elevated. Zinc is low. EGD FINDINGS: Squamocolumnar junction unremarkable at 36 cm. Stricture of approximately 18 mm encountered. No gastrojejunal ulceration encountered. Successful balloon dilatation to 20 mm. Diaphragmatic hiatus at 42 cm. Gastric pouch 8 cm. Diaphragmatic hiatal hernia 6 cm LA grade A erosive esophagitis ASSESSMENT: 1. Morbid obesity due to excess calories 2. Body mass index of 93.5, initial 3. Osteoarthritis of the knees. 4. Rheumatoid arthritis 5. Osteoarthritis of the lower back. 6. Hypertensive heart disease. 7. Chronic pain syndrome 8. Gastroesophageal reflux disease 9. Chronic panniculitis 10. Asthma 11. Chronic obstructive pulmonary disorder 12. Obstructive sleep apnea 13. Anxiety disorder 14. Congestive heart failure PLAN: 1. Recommend esophogram for hiatal hernia. 2. Follow-up in 1 month. 3. Recommend blood work Objective - Vital Signs Vital signs: Vital Signs Temp 98.6 F 04/02/19 14:30 Pulse 68 04/02/19 14:30 Resp BP 135/78 04/02/19 14:30 Pulse Ox Intake & Output 04/01/19 04/02/19 04/02/19 18:59 06:59 18:59 Weight 164.2 kg
== END | disposition home or self-care (01) ==
LOC: BARWHC3 13:35
PROVIDERS: ATTEND Surgery Plastic and Reconstructive Surgery
DX: E66.01 Morbid (severe) obesity due to excess calories (principal); M17.0 Bilateral primary osteoarthritis of knee; M06.9 Rheumatoid arthritis, unspecified; M47.816 Spondylosis without myelopathy or radiculopathy, lumbar region; I11.0 Hypertensive heart disease with heart failure; I50.9 Heart failure, unspecified; G89.4 Chronic pain syndrome; K21.9 Gastro-esophageal reflux disease without esophagitis; M79.3 Panniculitis, unspecified; J44.9 Chronic obstructive pulmonary disease, unspecified; G47.33 Obstructive sleep apnea (adult) (pediatric); F41.9 Anxiety disorder, unspecified; Z68.43 Body mass index [BMI] 50.0-59.9, adult; Z98.84 Bariatric surgery status; Z79.82 Long term (current) use of aspirin; Z79.51 Long term (current) use of inhaled steroids; Z79.899 Other long term (current) drug therapy
CPT/HCPCS: 99211

== ENCOUNTER → 2019-04-10 | Outpatient (CLI) | payer MEDICARE, OTHER ==
--- NOTE | 2019-04-10 10:00 | FL ---
EXAMINATION TYPE: FL barium swallow DATE OF EXAM: 04/10/2019 CLINICAL HISTORY: Dysphasia history of previous esophageal dilation TECHNIQUE: A single contrast esophagram is performed utilizing air and barium. A total of 28 second s of fluoroscopic time was utilized during procedure. 20 images submitted. COMPARISON: None FINDINGS: The esophagus shows normal motility and emptying into the stomach. No evidence of hiatal h ernia or stricture noted. There was a localized area of tapering of the distal esophagus at the GE ju nction. No obstruction. No significant gastroesophageal reflux was seen during real time performance of this study. IMPRESSION: 1. There is no evidence of obstruction. Contrast passed freely into the stomach. There was a localize d area of mild tapering of the distal esophagus at the GE junction..
== END ==
LOC: RADUSWWP 08:36
PROVIDERS: ATTEND Surgery Plastic and Reconstructive Surgery
DX: R10.13 Epigastric pain (principal)
CPT/HCPCS: 74220

== ENCOUNTER → 2019-07-01 | Outpatient (CLI) | payer MEDICARE, OTHER ==
[2019-07-01 10:22] VITALS: BP 135/82; PULSE 80; RESP 16; TEMP 98.8; BMI 59.2
--- NOTE | 2019-07-01 11:10 | P.HPOB ---
History of Present Illness H&P Date: 07/01/19 Chief Complaint: The patient is here for her routine gynecologic exam and ma mmogram. This is a 64-year-old with an LMP of 2012. The patient is without gynecologic complaints and denies any postmenopausal bleeding. Review of Systems The patient has gained 39 pounds over the last year. She denies respiratory or cardiac problems. G.I.: she has continued to have issues with her hiatal hernia and sees Dr Packer for this. Past Medical History Past Medical History: Asthma, GERD/Reflux, Hypertension, Rheumatoid Arthritis (RA), Sleep Apnea/CPAP/BIPAP Additional Past Medical History / Comment(s): HEART MURMUR, ANEMIA. Arthritis, sleep apnea, hiatal hernia, and chronic back pain. 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 History of Any Multi-Drug Resistant Organisms: None Reported Past Surgical History: Bariatric Surgery, Joint Replacement, Tonsillectomy, Tubal Ligation, Uterine Ablation Additional Past Surgical History / Comment(s): BRAYAN TOTAL KNEE REPLACEMENT, D&C. Upper endoscopy with esophageal dilatation 2016 & again February 2019, gastric bypass performed at [facility] in [place] in 2013. Past Anesthesia/Blood Transfusion Reactions: No Reported Reaction Past Psychological History: Anxiety Smoking Status: Never smoker Past Alcohol Use History: None Reported Past Drug Use History: None Reported Additional History: She has been since 1993 and is disabled. - Past Family History Mother Family Medical History: Diabetes Mellitus Father Family Medical History: Cancer Additional Family Medical History / Comment(s): DAD LIVER CA, Paternal aunt had breast cancer and an uncle had colon cancer. Medications and Allergies Home Medications Medication Instructions Recorded Confirmed Type Albuterol Sulfate [Proair Hfa] 2 puff INHALATION Q6HR PRN 02/04/15 07/01/19 History Aspirin 325 mg PO DAILY 02/04/15 07/01/19 History Cyanocobalamin [Vitamin B-12] 1,000 mcg PO DAILY 02/04/15 07/01/19 History Multivitamins, Thera [Theragran] 1 each PO DAILY 02/04/15 07/01/19 History Ergocalciferol [Vitamin D2] 50,000 unit PO QMONTH 11/04/15 07/01/19 History Biotin 5,000 mcg PO DAILY 01/02/17 07/01/19 History Calciumcalcium Magnesium,Zinc 1 tab PO DAILY 01/02/17 07/01/19 History Furosemide [Lasix] 20 mg PO DAILY 01/02/17 07/01/19 History Nystatin [Nystop] 1 applic TOPICAL DAILY 01/02/17 07/01/19 History Omeprazole 20 mg PO BID 01/02/17 07/01/19 History amLODIPine [Norvasc] 5 mg PO DAILY 01/02/17 07/01/19 History B12/Levomefolate Calcium/B-6 1 tab PO DAILY 04/03/18 07/01/19 History [Foltx Tablet] Baclofen 10 mg PO HS 04/03/18 07/01/19 History Budesonide/Formoterol Fumarate 1 puff INHALATION BID 04/03/18 07/01/19 History [Symbicort 80-4.5 Mcg Inhaler] Clindamycin Gel [Clindamycin 1 applicator TOPICAL BID 04/03/18 07/01/19 History Phosphate 1% Gel] Dimethicone/Zinc Oxide [Inzo Zinc 1 applic TOPICAL BID 04/03/18 07/01/19 History Oxide Barrier Cream] Magnesium Oxide 400 mg PO DAILY 04/03/18 07/01/19 History oxyCODONE-APAP 10-325MG [Percocet 1 tab PO Q6HR 04/03/18 07/01/19 History 10-325 mg] Irbesartan/Hydrochlorothiazide 1 each PO DAILY 04/02/19 07/01/19 History [Irbesartan-Hctz 300-12.5 mg Tb] Allergies Allergy/AdvReac Type Severity Reaction Status Date / Time nickel Allergy Unknown Rash/Hives Verified 07/01/19 10:02 Exam Vital Signs Temp Pulse Resp BP Pulse Ox 07/01/19 10:10 98.8 F 80 16 135/82 95 Height 5'7", weight 374 pounds, BMI 59.3. This is a well-developed well-nourished obese black female who is alert and oriented times 3 in no acute distress. HEENT: Within normal limits. NECK: Supple without mass or thyromegaly. CHEST AND LUNGS: Clear to auscultation. HEART: Regular rate and rhythm. BREASTS: Are without mass or discharge. There is a flat mole on the left areola at the 12 o'clock position measuring 2.0 x 1.0 cm. The patient believes it has been growing. AXILLARY EXAM: Negative for adenopathy. BACK: Negative for CVA tenderness. ABDOMEN: Soft, obese, nontender, without palpable masses. PELVIC EXAM: Normal external genitalia with minimal atrophy. Cervix and vagina appear normal minimal atrophy. There is no unusual discharge. There is no evidence of prolapse. The uterus is midposition, nongravid size and nontender. There are no palpable adnexal masses or tenderness. Bimanual examination is somewhat limited secondary to her size. RECTAL EXAM: rectal vaginal exam is negative for mass or tenderness and is negative for occult blood. EXTREMITIES: Nontender. IMPRESSION: 1. 64-year-old menopausal female with normal gynecologic exam. 2. Obesity. 3. Left areola mole at the 12 o'clock position measuring 2.0 x 1.0 cm. PLAN: 1. Pap smear was deferred since she had a normal one on 04/09/2018. 2. Self breast awareness was discussed with the patient. 3. Screening mammogram will be done today. 4. Osteoporosis prevention was discussed. I have stressed the importance of adequate calcium, vitamin D and regular exercise. Recommended amounts of calcium and vitamin D were also discussed. She had a normal bone density test in 2017. Will plan on repeating this approximately in 2022. 5. We discussed the mole on the left areola. 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 She states she will do this. 6. She was advised to return in one year for her annual well woman exam.
--- NOTE | 2019-07-02 09:52 | MM ---
Reason for exam: screening (asymptomatic). Last mammogram was performed 1 year and 3 months ago. History: Patient is postmenopausal. Family history of breast cancer in paternal aunt at age 50. Took hormonal contraceptives for 1 year 6 months beginning at age 19. Took estrogen for 1 month. Physical Findings: A clinical breast exam by your physician is recommended on an annual basis and results should be correlated with mammographic findings. MG 3D Screening Mammo W/Cad Bilateral CC and MLO view(s) were taken. Prior study comparison: April 09, 2018, bilateral MG 3d screening mammo w/cad. March 28, 2017, bilateral MG 3d screening mammo w/cad. There are scattered fibroglandular densities. No suspicious abnormality. No significant changes when compared with prior studies. ASSESSMENT: Negative, BI-RAD 1 RECOMMENDATION: Routine screening mammogram of both breasts in 1 year.
== END | disposition home or self-care (01) ==
LOC: WWCWWP 09:51
PROVIDERS: ATTEND Obstetrics & Gynecology
DX: Z12.31 Encounter for screening mammogram for malignant neoplasm of breast (principal)
CPT/HCPCS: 77063; 77067

== ENCOUNTER → 2020-11-23 | Outpatient (CLI) | payer MEDICARE, OTHER ==
[2020-11-23 16:40] VITALS: BP 149/79; PULSE 92; RESP 24; TEMP 98.6
--- NOTE | 2020-11-23 17:24 | P.HPOB ---
History of Present Illness H&P Date: 11/23/20 Chief Complaint: The patient is here for her routine gynecologic exam and ma mmogram. This is a 65-year-old with an LMP of 2013. The patient is without gynecologic complaints and denies any postmenopausal bleeding. Review of Systems The patient has lost 10 pounds over the last year. She has been trying to lose weight with diet and exercise. She denies respiratory or cardiac problems. GI: She has been having some constipation and attributes this to pain medications. Past Medical History Past Medical History: Asthma, GERD/Reflux, Hypertension, Rheumatoid Arthritis (RA), Sleep Apnea/CPAP/BIPAP Additional Past Medical History / Comment(s): HEART MURMUR, ANEMIA, hiatal hernia, and chronic back pain. 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 History of Any Multi-Drug Resistant Organisms: None Reported Past Surgical History: Bariatric Surgery, Joint Replacement, Tonsillectomy, Tubal Ligation, Uterine Ablation Additional Past Surgical History / Comment(s): BRAYAN TOTAL KNEE REPLACEMENT, D&C. Upper endoscopy with esophageal dilatation 2016 & again February 2019, gastric bypass performed at [facility] in [place] in 2013. Past Anesthesia/Blood Transfusion Reactions: Previous Problems w/ Anesthesia, Family History of Problems w/ Anesthesia Additional Past Anesthesia/Blood Transfusion Reaction / Comment(s): pt states had awoke during surgery attributed to sleep apnea, "brother had hard time coming out of anesthesia r/t sleep apnea" Past Psychological History: Anxiety Smoking Status: Never smoker Past Alcohol Use History: None Reported Past Drug Use History: None Reported Additional History: She has been since 2019 and this is her third marriage. She is disabled. - Past Family History Mother Family Medical History: Diabetes Mellitus Father Family Medical History: Cancer Additional Family Medical History / Comment(s): DAD LIVER CA, Paternal aunt had breast cancer and an uncle had colon cancer. Medications and Allergies Home Medications Medication Instructions Recorded Confirmed Type Albuterol Sulfate [Proair Hfa] 2 puff INHALATION Q6HR PRN 02/04/15 11/23/20 History Cyanocobalamin [Vitamin B-12] 1,000 mcg PO DAILY 02/04/15 11/23/20 History Multivitamins, Thera [Theragran] 1 each PO DAILY 02/04/15 11/23/20 History Ergocalciferol [Vitamin D2] 50,000 unit PO QMONTH 11/04/15 11/23/20 History Biotin 5,000 mcg PO DAILY 01/02/17 11/23/20 History Calciumcalcium Magnesium,Zinc 1 tab PO DAILY 01/02/17 11/23/20 History Furosemide [Lasix] 20 mg PO DAILY 01/02/17 11/23/20 History Nystatin [Nystop] 1 applic TOPICAL DAILY 01/02/17 11/23/20 History amLODIPine [Norvasc] 5 mg PO DAILY 01/02/17 11/23/20 History B12/Levomefolate Calcium/B-6 1 tab PO DAILY 04/03/18 11/23/20 History [Foltx Tablet] Baclofen 10 mg PO HS 04/03/18 11/23/20 History Budesonide/Formoterol Fumarate 1 puff INHALATION BID 04/03/18 11/23/20 History [Symbicort 80-4.5 Mcg Inhaler] Clindamycin Gel [Clindamycin 1 applicator TOPICAL BID 04/03/18 11/23/20 History Phosphate 1% Gel] Dimethicone/Zinc Oxide [Inzo Zinc 1 applic TOPICAL BID 04/03/18 11/23/20 History Oxide Barrier Cream] Magnesium Oxide 400 mg PO DAILY 04/03/18 11/23/20 History oxyCODONE-APAP 10-325MG [Percocet 1 tab PO Q6HR 04/03/18 11/23/20 History 10-325 mg] Irbesartan/Hydrochlorothiazide 1 each PO DAILY 04/02/19 11/23/20 History [Irbesartan-Hctz 300-12.5 mg Tb] Allergies Allergy/AdvReac Type Severity Reaction Status Date / Time nickel Allergy Unknown Rash/Hives Verified 11/23/20 16:21 Exam Vital Signs Temp Pulse Resp BP Pulse Ox 11/23/20 16:23 98.6 F 92 24 149/79 99 Intake and Output 11/23/20 11/23/20 11/23/20 06:59 14:59 22:59 Other: Weight 165.108 kg Height 5 feet 7-1/2 inches, weight 364 pounds, BMI 56.2. This is a well-developed well-nourished obese black female who is alert and oriented times 3 in no acute distress. HEENT: Within normal limits. NECK: Supple without mass or thyromegaly. CHEST AND LUNGS: Clear to auscultation. HEART: Regular rate and rhythm. BREASTS: Are without mass or discharge. There is a flat benign-appearing mole at the 12 o'clock position on the left areola measuring 2.0 x 1.2 cm and this is fairly similar to her previous examination. AXILLARY EXAM: Negative for adenopathy. BACK: Negative for CVA tenderness. ABDOMEN: Soft, nontender, without palpable masses. PELVIC EXAM: Normal external genitalia. Cervix and vagina appear normal with minimal atrophy. There is no unusual discharge. There is no evidence of prolapse. The uterus is midposition, nongravid size and nontender. There are no palpable adnexal masses or tenderness. Bimanual examination is somewhat limited secondary to her size. RECTAL EXAM: Rectovaginal exam is negative for mass or tenderness and is positive for occult blood. EXTREMITIES: Nontender. IMPRESSION: 1. 65-year-old menopausal female with normal gynecologic exam. 2. Heme positive stool on rectal examination. 3. Obesity. 4. Benign-appearing left areola mole at the 12 o'clock position measuring 2.0 x 1.2 cm. This is fairly stable from her previous examination. PLAN: 1. Pap smear cotest was performed. 2. Self breast awareness was discussed with the patient. 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 3. Screening mammogram will be done today. 4. I have recommended colonoscopy because of the heme positive stool. A referral will be made to her surgeon, Dr. Packer, for colonoscopy. 5. Osteoporosis prevention was discussed. I have stressed the importance of adequate calcium, vitamin D and regular exercise. Recommended amounts of calcium and vitamin D were also discussed. Since her bone density test was normal in 2016 we will plan on repeating it in approximately 2022. 6. She was advised to return in one year for her annual well woman exam.
--- NOTE | 2020-11-25 11:29 | MM ---
Reason for exam: screening (asymptomatic). Last mammogram was performed 1 year and 5 months ago. History: Patient is postmenopausal. Family history of breast cancer in paternal aunt at age 50. Took hormonal contraceptives for 1 year 6 months beginning at age 19. Took estrogen for 1 month. Physical Findings: A clinical breast exam by your physician is recommended on an annual basis and results should be correlated with mammographic findings. MG 3D Screening Mammo W/Cad Bilateral CC, MLO, and XCCL view(s) were taken. Prior study comparison: July 01, 2019, bilateral MG 3d screening mammo w/cad. April 09, 2018, bilateral MG 3d screening mammo w/cad. There are scattered fibroglandular densities. No significant changes when compared with prior studies. ASSESSMENT: Benign, BI-RAD 2 RECOMMENDATION: Routine screening mammogram of both breasts in 1 year.
== END | disposition home or self-care (01) ==
LOC: WWCWWP 15:50
PROVIDERS: ATTEND Obstetrics & Gynecology
DX: Z12.31 Encounter for screening mammogram for malignant neoplasm of breast (principal)
CPT/HCPCS: 77063; 77067

== ENCOUNTER 2020-12-22 09:43 | Day surgery (SDC) | payer MEDICARE, OTHER ==
[2020-12-17 15:20] VITALS: BMI 56.3
--- NOTE | 2020-12-22 08:51 | P.GSHP ---
History of Present Illness H&P Date: 12/22/20 CHIEF COMPLAINT: GERD and colon screen HISTORY OF PRESENT ILLNESS: The patient is a 65-year-old female who presents with gastroesophageal reflux disease and need for colon screen. Upper and lower endoscopy were offered for further evaluation and management. PAST MEDICAL HISTORY: Please see list. PAST SURGICAL HISTORY: Please see list. MEDICATIONS: Please see list. ALLERGIES: Please see list. SOCIAL HISTORY: No illicit drug use FAMILY HISTORY: No reports of Crohn disease or ulcerative colitis. REVIEW OF ORGAN SYSTEMS: CONSTITUTIONAL: No reports of fevers or chills. GI: Denies any blood in stools or constipation. PHYSICAL EXAM: VITAL SIGNS: Stable GENERAL: Well-developed pleasant in no acute distress. HEENT: No scleral icterus. Extraocular movements grossly intact. Moist buccal mucosa. NECK: Supple without lymphadenopathy. CHEST: Unlabored respirations. Equal bilateral excursions. CARDIOVASCULAR: Regular rate and rhythm. Distal 2+ pulses. ABDOMEN: Soft, nondistended. MUSCULOSKELETAL: No clubbing, cyanosis, or edema. ASSESSMENT: 1. Gastroesophageal reflux disease 2. Colon screen. PLAN: 1. Recommend proceeding with an upper and lower endoscopy Past Medical History Past Medical History: Asthma, GERD/Reflux, GI Bleed, Hypertension, Rheumatoid Arthritis (RA), Sleep Apnea/CPAP/BIPAP Additional Past Medical History / Comment(s): HEART MURMUR, ANEMIA, hiatal hernia, and chronic back pain. 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 History of Any Multi-Drug Resistant Organisms: None Reported Past Surgical History: Bariatric Surgery, Joint Replacement, Tonsillectomy, Tubal Ligation, Uterine Ablation Additional Past Surgical History / Comment(s): BRAYAN TOTAL KNEE REPLACEMENT, D&C. Upper endoscopy with esophageal dilatation 2016 & again February 2019, gastric bypass performed at [facility] in [place] in 2013. Past Anesthesia/Blood Transfusion Reactions: Previous Problems w/ Anesthesia, Family History of Problems w/ Anesthesia Additional Past Anesthesia/Blood Transfusion Reaction / Comment(s): pt states had awoke during surgery attributed to sleep apnea, "brother had hard time coming out of anesthesia r/t sleep apnea" Smoking Status: Never smoker - Past Family History Mother Family Medical History: Diabetes Mellitus Father Family Medical History: Cancer Additional Family Medical History / Comment(s): DAD LIVER CA, Paternal aunt had breast cancer and an uncle had colon cancer. Medications and Allergies Home Medications Medication Instructions Recorded Confirmed Type Albuterol Sulfate [Proair Hfa] 2 puff INHALATION Q6HR PRN 02/04/15 12/17/20 History Cyanocobalamin [Vitamin B-12] 1,000 mcg PO DAILY 02/04/15 12/17/20 History Multivitamins, Thera [Theragran] 1 each PO DAILY 02/04/15 12/17/20 History Ergocalciferol [Vitamin D2] 50,000 unit PO QMONTH 11/04/15 12/17/20 History Calciumcalcium Magnesium,Zinc 1 tab PO DAILY 01/02/17 12/17/20 History Furosemide [Lasix] 20 mg PO DAILY 01/02/17 12/17/20 History Nystatin [Nystop] 1 applic TOPICAL DAILY 01/02/17 12/17/20 History amLODIPine [Norvasc] 5 mg PO DAILY 01/02/17 12/17/20 History B12/Levomefolate Calcium/B-6 1 tab PO DAILY 04/03/18 12/17/20 History [Foltx Tablet] Baclofen 10 mg PO HS 04/03/18 12/17/20 History Budesonide/Formoterol Fumarate 1 puff INHALATION BID 04/03/18 12/17/20 History [Symbicort 80-4.5 Mcg Inhaler] Clindamycin Gel [Clindamycin 1 applicator TOPICAL BID 04/03/18 12/17/20 History Phosphate 1% Gel] Dimethicone/Zinc Oxide [Inzo Zinc 1 applic TOPICAL BID 04/03/18 12/17/20 History Oxide Barrier Cream] Magnesium Oxide 400 mg PO DAILY 04/03/18 12/17/20 History oxyCODONE-APAP 10-325MG [Percocet 1 tab PO Q6HR 04/03/18 12/17/20 History 10-325 mg] Irbesartan/Hydrochlorothiazide 1 each PO DAILY 04/02/19 12/17/20 History [Irbesartan-Hctz 300-12.5 mg Tb] Allergies Allergy/AdvReac Type Severity Reaction Status Date / Time nickel Allergy Unknown Rash/Hives Verified 12/17/20 15:11
[~2020-12-22 09:43] MED LIST changes: +LIDOCAINE 1% (10MG/ML) FOR IV START INTRADERMA PRN
[2020-12-22 11:16] VITALS: TEMP 97.7
[2020-12-22] MEDS ORDERED: LIDOCAINE 1% INJ 10MG/ML (20 ML MDV) ONE (11:21)
[2020-12-22] MEDS ORDERED: PROPOFOL 10 MG/ML 20 ML VIAL IV ONE (11:21)
--- NOTE | 2020-12-22 11:59 | P.PCN ---
Date of Procedure: 12/22/20 Description of Procedure: PREOPERATIVE DIAGNOSES: 1. Anemia 2. History of gastrojejunal ulcer POSTOPERATIVE DIAGNOSES: 1. Anemia 2. History of gastrojejunal ulcer 3. Diaphragmatic hiatal hernia 4. Gastritis with bleeding PROCEDURE PERFORMED: Esophagogastrojejunoscopy. SURGEON: Suzette Packer MD ANESTHESIA: MAC. INDICATIONS: The patient is a 65-year-old female with prior history of Jacobo-en-Y gastric bypass who presents with anemia including history of gastric ulcers. Upper endoscopy was offered for further evaluation and management. DESCRIPTION: Patient was brought to the endoscopy suite and laid in the left lateral decubitus position. After adequate IV sedation, a bite block was placed. An Olympus gastroscope was passed along the posterior oropharynx down to the distal esophagus where the squamocolumnar junction was found at approximately 38 cm from the incisors. Blood was found within the gastric pouch with gastritis. Hiatal hernia was also identified at least 5 cm size. The scope was advanced 60 cm from the incisors. No evidence of foreign body was found. No active gastrojejunal ulcerations were encountered. The GI tract was desufflated. The patient tolerated the procedure well. FINDINGS: 1. No acute gastrojejunal ulceration. 2. No foreign body found along the anastomosis. 3. Diaphragmatic hiatal hernia, over 5 cm PLAN: 1. Recommend upper endoscopy as needed. 2. Recommend repair of hiatal hernia
[2020-12-22 12:15] VITALS: BP 126/80; PULSE 76; RESP 16
--- NOTE | 2020-12-22 18:11 | P.PCN ---
Date of Procedure: 12/22/20 Description of Procedure: PREOPERATIVE DIAGNOSIS: Abnormal stool study test for bleeding Anemia POSTOPERATIVE DIAGNOSIS: Tubular adenoma cecum Tubular adenoma proximal transverse colon Scattered diverticulosis Tubular adenoma mid transverse colon OPERATION: Colonoscopy to the ileocecal valve and appendiceal orifice, cecum Colonoscopy with hot snare polypectomy Colonoscopy with cold forceps biopsy SURGEON: Suzette Packer MD ANESTHESIA: MAC. INDICATIONS: The patient is an 65-year-old female who presents following abnormal stool study for bleeding. She also presents with anemia. Last colonoscopy over 10 years ago. Benefits and risks were described and informed consent was obtained. DESCRIPTION OF PROCEDURE: The patient had undergone Suprep tablets. The patient had been brought into the operating room and laid in the left lateral decubitus position. After adequate intravenous sedation, the rectum was examined with 2% lidocaine jelly. The prostate was unremarkable. External hemorrhoids were encountered. The rectal tone was within normal limits. No lesions were palpated in the rectal vault. An Olympus colonoscope was advanced until the cecum, ileocecal valve and appendiceal orifice were clearly viewed. The prep was good. Few scattered diverticulosis was encountered. Colonic polyps were found and removed. No evidence of focal colitis was found. Retroflexion of the scope demonstrated grade 2 internal hemorrhoids without active bleeding or inflammation. The colon was desufflated. The patient had tolerated the procedure well. Withdrawal time was over 6 minutes. FINDINGS: Aronchick preparation quality scale 2 (1-5) Internal hemorrhoids, grade 2 External hemorrhoids, grade 2. No arteriovenous malformations. Scattered diverticulosis Removal of 3 polyps: - Snare polypectomy cecum, 10 mm tubulovillous adenoma polyp. - Snare polypectomy proximal transverse colon, 8 mm flat villous adenoma polyp. - Cold forceps biopsy at mid transverse colon, 4 mm polyp. No focal colitis. RECOMMENDATIONS: Given severity of tubular adenomas, recommend repeat colonoscopy 2 years, 2022. Plan - Discharge Summary Discharge Rx Participant: No New Discharge Prescriptions: Continue Cyanocobalamin [Vitamin B-12] 1,000 mcg PO DAILY Albuterol Sulfate [Proair Hfa] 2 puff INHALATION Q6HR PRN PRN Reason: Shortness Of Breath Multivitamins, Thera [Multivitamin (formulary)] 1 each PO DAILY Ergocalciferol [Vitamin D2 (DRISDOL)] 50,000 unit PO QMONTH Nystatin [Nystop] 1 applic TOPICAL DAILY Furosemide [Lasix] 20 mg PO DAILY amLODIPine [Norvasc] 5 mg PO DAILY Calciumcalcium Magnesium,Zinc 1 tab PO DAILY oxyCODONE-APAP 10-325MG [Percocet 10-325 mg] 1 tab PO Q6HR Magnesium Oxide 400 mg PO DAILY Dimethicone/Zinc Oxide [Inzo Zinc Oxide Barrier Cream] 1 applic TOPICAL BID Clindamycin Gel [Clindamycin Phosphate 1% Gel] 1 applicator TOPICAL BID Budesonide/Formoterol Fumarate [Symbicort 80-4.5 Mcg Inhaler] 1 puff INHALATION BID Baclofen 10 mg PO HS B12/Levomefolate Calcium/B-6 [Foltx Tablet] 1 tab PO DAILY Irbesartan/Hydrochlorothiazide [Irbesartan-Hctz 300-12.5 mg Tb] 1 each PO DAILY Discharge Medication List Albuterol Sulfate [Proair Hfa] 2 puff INHALATION Q6HR PRN 02/04/15 [History] Cyanocobalamin [Vitamin B-12] 1,000 mcg PO DAILY 02/04/15 [History] Multivitamins, Thera [Multivitamin (formulary)] 1 each PO DAILY 02/04/15 [History] Ergocalciferol [Vitamin D2 (DRISDOL)] 50,000 unit PO QMONTH 11/04/15 [History] Calciumcalcium Magnesium,Zinc 1 tab PO DAILY 01/02/17 [History] Furosemide [Lasix] 20 mg PO DAILY 01/02/17 [History] Nystatin [Nystop] 1 applic TOPICAL DAILY 01/02/17 [History] amLODIPine [Norvasc] 5 mg PO DAILY 01/02/17 [History] B12/Levomefolate Calcium/B-6 [Foltx Tablet] 1 tab PO DAILY 04/03/18 [History] Baclofen 10 mg PO HS 04/03/18 [History] Budesonide/Formoterol Fumarate [Symbicort 80-4.5 Mcg Inhaler] 1 puff INHALATION BID 04/03/18 [History] Clindamycin Gel [Clindamycin Phosphate 1% Gel] 1 applicator TOPICAL BID 04/03/18 [History] Dimethicone/Zinc Oxide [Inzo Zinc Oxide Barrier Cream] 1 applic TOPICAL BID 04/03/18 [History] Magnesium Oxide 400 mg PO DAILY 06/06/18 [History] oxyCODONE-APAP 10-325MG [Percocet 10-325 mg] 1 tab PO Q6HR 04/03/18 [History] Irbesartan/Hydrochlorothiazide [Irbesartan-Hctz 300-12.5 mg Tb] 1 each PO DAILY 04/02/19 [History] Follow up Appointment(s)/Referral(s): Suzette Packer MD [STAFF PHYSICIAN] - 12/29/20 2:30 pm Patient Instructions/Handouts: Gastritis (DC), Diverticulosis (DC), Colorectal Polyps (DC), Diverticulosis Diet (GEN) Activity/Diet/Wound Care/Special Instructions: Repeat colonoscopy in 2 years, 2022 Discharge Disposition: HOME SELF-CARE
== END 2020-12-22 12:40 | disposition home or self-care (01) ==
LOC: ORWHC2ENDO 09:43
PROVIDERS: ATTEND Surgery Plastic and Reconstructive Surgery
DX: D12.3 Benign neoplasm of transverse colon (principal); D12.0 Benign neoplasm of cecum; K57.30 Diverticulosis of large intestine without perforation or abscess without bleeding; K29.71 Gastritis, unspecified, with bleeding; K44.9 Diaphragmatic hernia without obstruction or gangrene; D64.9 Anemia, unspecified; K64.1 Second degree hemorrhoids; K64.4 Residual hemorrhoidal skin tags; E66.01 Morbid (severe) obesity due to excess calories; G47.33 Obstructive sleep apnea (adult) (pediatric); J45.909 Unspecified asthma, uncomplicated; Z98.84 Bariatric surgery status; Z79.51 Long term (current) use of inhaled steroids; Z79.899 Other long term (current) drug therapy; M06.9 Rheumatoid arthritis, unspecified; G89.29 Other chronic pain; M54.9 Dorsalgia, unspecified; Z98.51 Tubal ligation status; Z96.653 Presence of artificial knee joint, bilateral; Z83.3 Family history of diabetes mellitus; Z80.0 Family history of malignant neoplasm of digestive organs; Z91.09 Other allergy status, other than to drugs and biological substances; Z68.43 Body mass index [BMI] 50.0-59.9, adult
CPT/HCPCS: 88305; 45380; 45385; 43235; J2001; J2704

== ENCOUNTER → 2020-12-29 | Outpatient (CLI) | payer MEDICARE, OTHER ==
[2020-12-29 13:47] VITALS: BP 156/99; PULSE 77; RESP 18; TEMP 98.4; BMI 56.8
--- NOTE | 2020-12-29 14:13 | P.PN ---
Subjective Progress Note Date: 12/29/20 She is looking into hiatal hernia repair. Dietary management for weight loss. Needs labs. Panniculectomy with back pain. Objective - Vital Signs Vital signs: Vital Signs Temp 98.4 F 12/29/20 13:39 Pulse 77 12/29/20 13:39 Resp 18 12/29/20 13:39 BP 156/99 12/29/20 13:39 Pulse Ox Intake & Output 12/28/20 12/29/20 12/29/20 18:59 06:59 18:59 Weight 164.654 kg
[2020-12-29 15:29] LABS: HCT 39.8 % (34.0-46.0); MCH 26.7 pg (25.0-35.0); MCHC 32.6 g/dL (31.0-37.0); MCV 81.8 fL (80.0-100.0); Mean Platelet Volume 8.6; Platelet Count 252 k/uL (150-450); RBC 4.86 m/uL (3.80-5.40); RDW 14.2 % (11.5-15.5)
[2020-12-29 22:59] LABS: INR 0.97 (0.90-1.11); Partial Thromboplastin Time 29.1 sec (23.5-31.0); Prothrombin Time 10.6 sec (9.9-11.9)
[2020-12-30 01:06] LABS: % Iron Saturation 20.57 (12.00-45.00); African American GFR (CKD) 78.9 (60.0-200.0); Albumin 4.1 g/dL (3.80-4.90); Albumin/Globulin Ratio 1.41 (1.60-3.17); Anion Gap 10.7 mmol/L (4.00-12.00); Calcium 10.1 mg/dL (8.7-10.3); Carbon Dioxide 27.3 mmol/L (21.6-31.8); Chol/HDL Ratio 4.82; Globulin 2.9 g/dL (1.6-3.3); LDL Cholesterol,Calculated 163.8 mg/dL (0.0-131.0); Magnesium 1.7 mg/dL (1.5-2.4); Phosphorus 3.5 mg/dL (2.4-5.1); Potassium 3.4 mmol/L (3.5-5.5); Total Bilirubin 0.5 mg/dL (0.3-1.2); VLDL Calculation 27.2 mg/dL (5.00-40.00)
[2020-12-30 01:17] LABS: Ferritin 53.7 ng/mL (10.0-291.0)
[2020-12-30 01:23] LABS: Folate, Serum 18.2 ng/mL
[2020-12-30 03:53] LABS: Hemoglobin A1C 5.9 % (4.0-6.0)
[2020-12-30 13:35] LABS: Zinc, Serum 63 ug/dL (60-130)
[2020-12-31 07:12] LABS: Vit B1(Thiamine) 72 ug/L (38-122)
[2021-01-02 18:32] LABS: Selenium 108 mcg/L (63-160)
== END ==
LOC: BARWHC3 12:52
PROVIDERS: ATTEND Surgery Plastic and Reconstructive Surgery
DX: E66.01 Morbid (severe) obesity due to excess calories (principal); D50.8 Other iron deficiency anemias; K90.89 Other intestinal malabsorption; E55.9 Vitamin D deficiency, unspecified; K74.1 Hepatic sclerosis; N19 Unspecified kidney failure; K50.90 Crohn's disease, unspecified, without complications
CPT/HCPCS: 84255; 84134; 84425; 80061; 80053; 82607; 82728; 82525; 82746; 83540; 83550; 83735; 84100; 84443; 84630; 85027; 85610; 85730; 82306; 83970; 83036; 93005; G0463; 84590; 99211

== ENCOUNTER → 2021-02-07 | Outpatient (CLI) | payer MEDICARE, OTHER ==
[2021-02-01 14:19] VITALS: BMI 56.0
[~2021-02-07] MED LIST changes: +ACETAMINOPHEN TAB 500 MG TAB PO PRN; +CHLORHEXIDINE GLUCONATE 15 ML CUP MUCOUS MEM PRN; +DEXAMETHASONE SOD PHOSPHATE 4 MG/ML 1 ML VIAL IV ONE; +ENOXAPARIN 40 MG/0.4 ML SYRINGE SQ PRN; +GABAPENTIN 300 MG CAP PO PRN; +HYDROmorphone 0.5 MG/0.5 ML SYRINGE IVP PRN; +IOPAMIDOL CONTRAST (ORAL USE) VIAL PO PRN; +LIDOCAINE 1% INJ 10MG/ML (20 ML MDV) ONE; +MIDAZOLAM 2 MG/2 ML VIAL IV PRN; +ONDANSETRON 4 MG/2 ML VIAL IVP ONE; +PANTOPRAZOLE 40 MG/10 ML VIAL IVP PRN; +SCOPOLAMINE 1.5MG/72HR PATCH TRANSDERM SCH; +ceFAZolin 3 GM in SODIUM CHLORIDE 0.9% 100 ML IVPB PRN
[2021-02-07 07:23] VITALS: BP 161/79; PULSE 88; RESP 20; TEMP 97.8
--- NOTE | 2021-02-07 07:39 | P.GSHP ---
History of Present Illness H&P Date: 02/07/21 CHIEF COMPLAINT: Paraesophageal hiatal hernia with gastroesophageal reflux disease. HISTORY OF PRESENT ILLNESS: The patient is a 65-year-old female who presents with symptomatic paraesophageal hiatal hernia. She has completed an upper endoscopy workup. Now she presents for surgical intervention. PAST MEDICAL HISTORY: Please see list. PAST SURGICAL HISTORY: Please see list. MEDICATIONS: Please see list. ALLERGIES: Please see list. SOCIAL HISTORY: No illicit drug use FAMILY HISTORY: No reports of Crohn disease or ulcerative colitis. REVIEW OF ORGAN SYSTEMS: CONSTITUTIONAL: No reports of fevers or chills. GI: Has gastroesophageal reflux disease PHYSICAL EXAM: VITAL SIGNS: Stable GENERAL: Well-developed pleasant and in no acute distress. HEENT: No scleral icterus. Extraocular movements grossly intact. Moist buccal mucosa. NECK: Supple without lymphadenopathy. CHEST: Unlabored respirations. Equal bilateral excursions. CARDIOVASCULAR: Regular rate and rhythm. Distal 2+ pulses. ABDOMEN: Soft, nondistended. No peritoneal signs. MUSCULOSKELETAL: No clubbing, cyanosis, or edema. SKIN: Well-perfused. Good skin turgor. ASSESSMENT: 1. Diaphragmatic paraesophageal hiatal hernia with severe gastroesophageal reflux disease. PLAN: 1. Recommend proceeding with a robotic paraesophageal hiatal hernia with possible mesh. 2. Benefits and risks of surgical intervention was discussed including possibility of open technique. 3. Inpatient hospitalization recommended of 2 nights 4. DVT prophylaxis. 5. Antibiotic prophylaxis. 6. She has also completed a very low caloric high-protein diet to address underlying hepatomegaly. Past Medical History Past Medical History: Asthma, GERD/Reflux, GI Bleed, Hypertension, Rheumatoid Arthritis (RA), Sleep Apnea/CPAP/BIPAP Additional Past Medical History / Comment(s): received 1rst covid vaccine scheduled for 2nd dose on 02-17-21. HEART MURMUR, ANEMIA, hiatal hernia, and chronic back pain,does not use cpap History of Any Multi-Drug Resistant Organisms: None Reported Past Surgical History: Bariatric Surgery, Joint Replacement, Tonsillectomy, Tubal Ligation, Uterine Ablation Additional Past Surgical History / Comment(s): BRAYAN TOTAL KNEE REPLACEMENT, D&C. Upper endoscopy with esophageal dilatation 2016 & again February 2019, gastric bypass performed at [facility] in [place] in 2013. Past Anesthesia/Blood Transfusion Reactions: Previous Problems w/ Anesthesia, Family History of Problems w/ Anesthesia Additional Past Anesthesia/Blood Transfusion Reaction / Comment(s): pt states had awoke during surgery attributed to sleep apnea Smoking Status: Never smoker - Past Family History Mother Family Medical History: Diabetes Mellitus Father Family Medical History: Cancer Additional Family Medical History / Comment(s): DAD LIVER CA, Paternal aunt had breast cancer and an uncle had colon cancer. Medications and Allergies Home Medications Medication Instructions Recorded Confirmed Type Albuterol Sulfate [Proair Hfa] 2 puff INHALATION Q6HR PRN 02/04/15 02/07/21 History Cyanocobalamin [Vitamin B-12] 1,000 mcg PO DAILY 02/04/15 02/07/21 History Multivitamins, Thera [Multivitamin 1 each PO DAILY 02/04/15 02/07/21 History (formulary)] Ergocalciferol [Vitamin D2 50,000 unit PO MADRIGAL 11/04/15 02/07/21 History (DRISDOL)] Furosemide [Lasix] 20 mg PO DAILY 01/02/17 02/07/21 History Nystatin [Nystop] 1 applic TOPICAL DAILY PRN 01/02/17 02/07/21 History amLODIPine [Norvasc] 10 mg PO QAM 01/02/17 02/07/21 History Baclofen 10 mg PO HS 04/03/18 02/07/21 History Budesonide/Formoterol Fumarate 1 puff INHALATION BID 04/03/18 02/07/21 History [Symbicort 80-4.5 Mcg Inhaler] Clindamycin Gel [Cleocin T 1% Gel] 1 applicator TOPICAL BID PRN 04/03/18 02/07/21 History Dimethicone/Zinc Oxide [Inzo Zinc 1 applic TOPICAL BID PRN 04/03/18 02/07/21 History Oxide Barrier Cream] Magnesium Oxide 250 mg PO DAILY 04/03/18 02/07/21 History oxyCODONE-APAP 10-325MG [Percocet 1 tab PO Q6HR 04/03/18 02/07/21 History 10-325 mg] Irbesartan/Hydrochlorothiazide 1 each PO QAM 04/02/19 02/07/21 History [Irbesartan-Hctz 300-12.5 mg Tb] Lubiprostone [Amitiza] 24 mcg PO BID 02/01/21 02/07/21 History Zinc 50 mg PO DAILY 02/01/21 02/07/21 History Allergies Allergy/AdvReac Type Severity Reaction Status Date / Time nickel Allergy Unknown Rash/Hives Verified 02/07/21 07:13 Surgical - Exam Vital Signs Temp Pulse Resp BP Pulse Ox 97.8 F 88 20 161/79 100 02/07/21 07:22 02/07/21 07:22 02/07/21 07:22 02/07/21 07:22 02/07/21 07:22
[2021-02-07 07:56] LABS: Basophils # (A) 0.1 k/uL (0-0.2); Basophils % (A) 1 %; Eosinophils # (A) 0.2 k/uL (0-0.7); Eosinophils % (A) 2 %; HCT 39.3 % (34.0-46.0); HGB 13.1 gm/dL (11.4-16.0); Lymphocytes # (A) 3.7 k/uL (1.0-4.8); Lymphocytes % (A) 35 %; MCH 27.2 pg (25.0-35.0); MCHC 33.4 g/dL (31.0-37.0); MCV 81.6 fL (80.0-100.0); Mean Platelet Volume 8.3; Monocytes # (A) 0.4 k/uL (0-1.0); Monocytes % (A) 4 %; Neutrophils # (A) 5.9 k/uL (1.3-7.7); Neutrophils % (A) 56 %; Platelet Count 246 k/uL (150-450); RBC 4.82 m/uL (3.80-5.40); RDW 14.1 % (11.5-15.5); WBC 10.4 k/uL (3.8-10.6)
[2021-02-07 08:08] LABS: Albumin 3.8 g/dL (3.5-5.0); Calcium 9.2 mg/dL (8.4-10.2); Potassium 3.9 mmol/L (3.5-5.1); Total Bilirubin 0.6 mg/dL (0.2-1.3); Total Protein 6.9 g/dL (6.3-8.2)
--- NOTE | 2021-02-07 08:53 | P.HPADDEND ---
H&P Addendum H&P Addendum Date: 02/07/21 Patient presents with symptomatic epigastric abdominal pain with gastroesophageal reflux disease. Will obtain CT of the abdomen and pelvis. Additionally, notified no authorization for surgery. Case is rescheduled.
--- NOTE | 2021-02-07 09:22 | P.PN ---
Progress Note - Text Progress Note Date: 02/07/[address] is cancelled. Authorization needed.
== END | disposition home or self-care (01) ==
LOC: 2ORMAIN 06:55 → OR 06:55 → UNDOADMIN 06:55 → EDSTATUS 07:30
PROVIDERS: ATTEND Surgery Plastic and Reconstructive Surgery
DX: K44.9 Diaphragmatic hernia without obstruction or gangrene (principal); K21.9 Gastro-esophageal reflux disease without esophagitis; J45.909 Unspecified asthma, uncomplicated; I10 Essential (primary) hypertension
CPT/HCPCS: 80053; 85025; J1100; J2405; J1650; C9113

== ENCOUNTER → 2021-02-08 | Outpatient (CLI) | payer MEDICARE, OTHER ==
--- NOTE | 2021-02-08 15:38 | CT ---
EXAMINATION TYPE: CT abdomen pelvis w con DATE OF EXAM: 02/08/2021 COMPARISON: None HISTORY: Diverticulitis. CT DLP: 2747.4 mGycm Automated exposure control for dose reduction was used. TECHNIQUE: Helical acquisition of images from the lung bases through the pelvis have been completed. CONTRAST: Performed with Oral Contrast and with IV Contrast, patient injected with 100ml mL of Isovue 300. FINDINGS: LUNG BASES: No significant abnormality is appreciated. AORTA: No significant abnormality is appreciated. LIVER/GB: Enlarged. No dilated intra or extrahepatic biliary duct, gallbladder is normal PANCREAS: No significant abnormality is seen. SPLEEN: No significant abnormality is seen. ADRENALS: No significant abnormality is seen. KIDNEYS: No significant abnormality is seen. REPRODUCTIVE ORGANS: No significant abnormality is seen BOWEL: Postop changes are noted present status post bariatric surgery. Oral contrast is not coursed overweight through into the colon. Patient's body habitus could limit evaluation for detection of sub tle inflammatory changes in the sigmoid colon FREE AIR: No Free Air visible. ASCITES: None visible. PELVIC ADENOPATHY: None visualized. RETROPERITONEAL ADENOPATHY: No Retroperitoneal Adenopathy visible. URINARY BLADDER: Thickened wall may be due to lack of distention, correlate to exclude cystitis OSSEOUS STRUCTURES: Extensive degenerative disc changes, facet arthropathy noted in the visualized s pine IMPRESSION: NONSPECIFIC FINDINGS DESCRIBED ABOVE, POSTOP CHANGE.
== END | disposition home or self-care (01) ==
LOC: RADCTMAIN 10:58
PROVIDERS: ATTEND Surgery Plastic and Reconstructive Surgery
DX: K57.32 Diverticulitis of large intestine without perforation or abscess without bleeding (principal); Z98.84 Bariatric surgery status
CPT/HCPCS: 74177; Q9967

== ENCOUNTER → 2021-02-09 | Outpatient (CLI) | payer MEDICARE, OTHER ==
[2021-02-09 13:54] VITALS: BP 151/80; PULSE 82; RESP 18; TEMP 98.1; BMI 57.2
--- NOTE | 2021-02-09 14:17 | P.PN ---
Subjective Progress Note Date: 02/09/21 She reports chronic and severe gallbladder. She has history of family of gallstones. All family members had their gallbladder removed. Recommend cholecystectomy. She has severe back pain from her pannus. Highest weight 596 pounds in 2013. Recommend pannus. She uses powder for panniculitis. Objective - Vital Signs Vital signs: Vital Signs Temp 98.1 F 02/09/21 13:49 Pulse 82 02/09/21 13:49 Resp 18 02/09/21 13:49 BP 151/80 02/09/21 13:49 Pulse Ox Intake & Output 02/08/21 02/09/21 02/09/21 18:59 06:59 18:59 Weight 165.561 kg
== END ==
LOC: BARWHC3 13:48
PROVIDERS: ATTEND Surgery Plastic and Reconstructive Surgery
DX: E66.01 Morbid (severe) obesity due to excess calories (principal); Z68.43 Body mass index [BMI] 50.0-59.9, adult; J45.909 Unspecified asthma, uncomplicated; K21.9 Gastro-esophageal reflux disease without esophagitis; I10 Essential (primary) hypertension; Z98.84 Bariatric surgery status; Z46.51 Encounter for fitting and adjustment of gastric lap band
CPT/HCPCS: 99211

== ENCOUNTER 2021-02-21 07:33 | Day surgery (SDC) | payer MEDICARE, OTHER ==
[2021-02-17 10:45] VITALS: BMI 57.2
[~2021-02-21 07:33] MED LIST changes: -ACETAMINOPHEN TAB 500 MG TAB PO PRN; -CHLORHEXIDINE GLUCONATE 15 ML CUP MUCOUS MEM PRN; -ENOXAPARIN 40 MG/0.4 ML SYRINGE SQ PRN; -GABAPENTIN 300 MG CAP PO PRN; -HYDROmorphone 0.5 MG/0.5 ML SYRINGE IVP PRN; -IOPAMIDOL CONTRAST (ORAL USE) VIAL PO PRN; -LIDOCAINE 1% INJ 10MG/ML (20 ML MDV) ONE; -MIDAZOLAM 2 MG/2 ML VIAL IV PRN; -PANTOPRAZOLE 40 MG/10 ML VIAL IVP PRN; +SCOPOLAMINE 1.5MG/72HR PATCH TRANSDERM ONE; -SCOPOLAMINE 1.5MG/72HR PATCH TRANSDERM SCH; -ceFAZolin 3 GM in SODIUM CHLORIDE 0.9% 100 ML IVPB PRN
[2021-02-21] MEDS ORDERED: INDOCYANINE GREEN 25 MG VIAL IV PRN (07:57)
[2021-02-21] MEDS ORDERED: KETOROLAC 15 MG/ML 1 ML VIAL IVP PRN (07:57)
[2021-02-21] MEDS ORDERED: SCOPOLAMINE 1.5MG/72HR PATCH TRANSDERM PRN (07:57)
[2021-02-21] MEDS ORDERED: ACETAMINOPHEN TAB 500 MG TAB PO PRN (07:59)
--- NOTE | 2021-02-21 08:00 | P.GSHP ---
History of Present Illness H&P Date: 02/21/21 CHIEF COMPLAINT: Cholecystitis HISTORY OF PRESENT ILLNESS: The patient is a 66-year-old female who presents with history of epigastric including right upper quadrant abdominal pain. She underwent diagnostic studies for her gallbladder. Separately her clinical picture was consistent with cholecystitis. Now she presents for surgical intervention. PAST MEDICAL HISTORY: Please see list PAST SURGICAL HISTORY: Please see list MEDICATIONS: Please see list ALLERGIES: Please see list SOCIAL HISTORY: Please see list FAMILY HISTORY: Please see list REVIEW OF ORGAN SYSTEMS: CONSTITUTIONAL: No reports of fevers or chills. HEENT: Denies any troubles with the vision or hearing. PHYSICAL EXAM: VITAL SIGNS: Afebrile vital signs stable GENERAL: Well-developed pleasant in no acute distress. HEENT: No scleral icterus. Extraocular movements grossly intact. Moist buccal mucosa. NECK: Supple without lymphadenopathy. CHEST: Unlabored respirations. Equal bilateral excursions. CARDIOVASCULAR: Regular rate regular rhythm rhythm. Distal 2+ pulses. ABDOMEN: Soft, nondistended. Tender along the epigastrium and right upper quadrant. MUSCULOSKELETAL: No clubbing, cyanosis, or edema. NEURO: Cranial nerves II to XII within normal limits. No focal or lateralizing signs. PSYCH: Alert and oriented to person, place and time. SKIN: Well-perfused good skin turgor. ASSESSMENT: 1. Epigastric and right upper quadrant abdominal pain 2. Chronic cholecystitis PLAN: 1. Will need a robotic cholecystectomy possible open. Benefits and risks were described. 2. Heparin for DVT prophylaxis 5000 units. 3. Antibiotic prophylaxis. Past Medical History Past Medical History: Asthma, GERD/Reflux, GI Bleed, Hypertension, Rheumatoid Arthritis (RA), Sleep Apnea/CPAP/BIPAP Additional Past Medical History / Comment(s): Received 1st Covid vaccine, scheduled for 2nd dose on 02-17-21. HEART MURMUR, ANEMIA, hiatal hernia, and chronic back pain, does not use CPAP. History of Any Multi-Drug Resistant Organisms: None Reported Past Surgical History: Bariatric Surgery, Joint Replacement, Tonsillectomy, Tubal Ligation, Uterine Ablation Additional Past Surgical History / Comment(s): BILATERAL TOTAL KNEE REPLACEMENTS, D&C, upper endoscopy with esophageal dilatation X2, gastric bypass. Past Anesthesia/Blood Transfusion Reactions: Previous Problems w/ Anesthesia, Family History of Problems w/ Anesthesia Additional Past Anesthesia/Blood Transfusion Reaction / Comment(s): Pt states awoke during surgery attributed to Sleep Apnea. Past Psychological History: Anxiety Smoking Status: Never smoker Past Alcohol Use History: None Reported Past Drug Use History: None Reported - Past Family History Mother Family Medical History: Diabetes Mellitus Father Family Medical History: Cancer Additional Family Medical History / Comment(s): LIVER CANCER, paternal aunt had breast cancer and an uncle had colon cancer. Medications and Allergies Home Medications Medication Instructions Recorded Confirmed Type RX: Albuterol Sulfate [Proair Hfa] 2 puff INHALATION Q6HR PRN 02/04/15 02/17/21 History RX: Cyanocobalamin [Vitamin B-12] 1,000 mcg PO DAILY 02/04/15 02/17/21 History RX: Multivitamins, Thera 1 each PO DAILY 02/04/15 02/17/21 History [Multivitamin (formulary)] RX: Ergocalciferol [Vitamin D2 50,000 unit PO MADRIGAL 11/04/15 02/17/21 History (DRISDOL)] RX: Furosemide [Lasix] 20 mg PO DAILY 01/02/17 02/17/21 History RX: Nystatin [Nystop] 1 applic TOPICAL DAILY PRN 01/02/17 02/17/21 History RX: amLODIPine [Norvasc] 10 mg PO QAM 01/02/17 02/17/21 History RX: Baclofen 10 mg PO HS 04/03/18 02/17/21 History RX: Budesonide/Formoterol Fumarate 1 puff INHALATION BID 04/03/18 02/17/21 History [Symbicort 80-4.5 Mcg Inhaler] RX: Clindamycin Gel [Cleocin T 1% 1 applicator TOPICAL BID PRN 04/03/18 02/17/21 History Gel] RX: Dimethicone/Zinc Oxide [Inzo 1 applic TOPICAL BID PRN 04/03/18 02/17/21 History Zinc Oxide Barrier Cream] RX: Magnesium Oxide 250 mg PO DAILY 04/03/18 02/17/21 History RX: oxyCODONE-APAP 10-325MG 1 tab PO Q6HR 04/03/18 02/17/21 History [Percocet 10-325 mg] RX: Irbesartan/Hydrochlorothiazide 1 each PO QAM 04/02/19 02/17/21 History [Irbesartan-Hctz 300-12.5 mg Tb] RX: Lubiprostone [Amitiza] 24 mcg PO BID 02/01/21 02/17/21 History RX: Zinc 50 mg PO DAILY 02/01/21 02/17/21 History RX: Nystatin 100,000 Unit/gm Powd 1 applic TOPICAL BID #60 powder 02/09/21 02/17/21 Rx [Mycostatin Powder] Allergies Allergy/AdvReac Type Severity Reaction Status Date / Time nickel Allergy Unknown Rash/Hives Verified 02/17/21 10:24
[2021-02-21] MEDS ORDERED: HEPARIN SODIUM,PORCINE/PF 5,000 UNIT/0.5 ML SYRINGE SQ PRN (08:04)
[2021-02-21] MEDS ORDERED: HYDROmorphone (PF) 1 MG/ML ONE (10:23)
[2021-02-21] MEDS ORDERED: NEOSTIGMINE 1 MG/ML 10 ML VIAL ONE (10:23)
[2021-02-21] MEDS ORDERED: MIDAZOLAM 2 MG/2 ML VIAL ONE (10:23)
[2021-02-21] MEDS ORDERED: LIDOCAINE 1% INJ 10MG/ML (20 ML MDV) ONE (10:23)
[2021-02-21] MEDS ORDERED: ROCURONIUM 10 MG/ML (5 ML VIAL) IV ONE (10:23)
[2021-02-21] MEDS ORDERED: SUCCINYLCHOLINE CHLORIDE 100 MG/5 ML SYR IV ONE (10:23)
[2021-02-21] MEDS ORDERED: fentaNYL (PF) 50 MCG/ML 2 ML AMP ONE (10:23)
[2021-02-21] MEDS ORDERED: GLYCOPYRROLATE 0.2 MG/ML 2 ML VIAL ONE (10:23)
[2021-02-21] MEDS ORDERED: ePHEDrine SULFATE/0.9% NACL/PF 50 MG/5 ML SYRINGE IV ONE (10:23)
[2021-02-21] MEDS ORDERED: PROPOFOL 10 MG/ML 20 ML VIAL IV ONE (10:23)
[2021-02-21] MEDS ORDERED: INDOCYANINE GREEN 25 MG VIAL IV ONE (10:23)
[2021-02-21] MEDS: ceFAZolin 3 GM in SODIUM CHLORIDE 0.9% 100 ML IVPB PRN ×2 (10:28→12:02)
[2021-02-21] MEDS ORDERED: LIDOCAINE 1%-EPI 1:100,000 20 ML VIAL SQ ONE (11:16)
[2021-02-21 12:21] VITALS: TEMP 98.2
[2021-02-21] MEDS: HYDROmorphone 0.5 MG/0.5 ML SYRINGE IVP PRN ×2 (12:31→12:37)
--- NOTE | 2021-02-21 12:41 | P.OP ---
Date of Procedure: 02/21/21 Description of Procedure: SURGEON: MARISELA GRAHAM MD PREOPERATIVE DIAGNOSES: 1. Chronic cholecystitis with right quadrant abdominal pain 2. Morbid obesity due to excess calories, BMI 56.3 3. Chronic pain syndrome 4. History of gastric bypass 5. Gastroesophageal reflux disease 6. Hypertensive heart disease with congestive heart failure 7. Chronic obstructive pulmonary disease POSTOPERATIVE DIAGNOSES: 1. Chronic cholecystitis with right quadrant abdominal pain 2. Morbid obesity due to excess calories, BMI 56.3 3. Chronic pain syndrome 4. History of gastric bypass 5. Gastroesophageal reflux disease 6. Hypertensive heart disease with congestive heart failure 7. Chronic obstructive pulmonary disease 8. Severe epigastric and bilateral upper abdominal adhesions, omentum to abdominal wall OPERATION: Robotic-assisted da George Xi laparoscopic cholecystectomy, multiport with FIREFLY ESTIMATED BLOOD LOSS: 50 mL. SPECIMENS REMOVED: Gallbladder. COMPLICATIONS: None. OPERATIVE FINDINGS: 1. Severe epigastric right upper quadrant adhesions omentum to abdominal wall adding complexity to procedure 2. Hepatomegaly adding complexity to procedure INDICATIONS: The patient is a 66 year-old female who presents with epigastric right upper quadrant pain and chronic cholecystitis. She presents at elevated risk due to super morbid obesity, BMI over 50, history of gastric bypass as well as additional procedures. Surgical intervention with cholecystectomy was de scribed. Robotic assisted laparoscopic approach was described. Benefits and risks of the procedure including but not limited to bleeding, infection, injury to the biliary tree was reviewed. Informed consent was obtained. DESCRIPTION OF PROCEDURE: Patient was brought to the operating room, placed in supine position. After general induction, the abdomen had been prepped and draped in standard sterile fashion. The robotic da George XI system was primed. After a timeout protocol was performed, the patient had been prepped and draped in standard sterile fashion. The patient was injected with indocyanine green. A 5 mm 0 degrees laparoscopic trocar entry was performed along the left upper quadrant. The abdomen insufflated to 15 mmHg pressure which was tolerated well. Diagnostic laparoscopy demonstrated no injury to bowel viscera or mesentery. Severe epigastric including bilateral upper abdominal adhesions were identified requiring additional trocar placement of the epigastrium. Hepatomegaly with distended gallbladder was identified adding complexity to the case. Next, two 8 mm robotic ports were placed along the right upper abdomen. The camera 8-mm port was maintained along the epigastrium. Another 8 mm port was placed along the right lateral abdominal wall. Please note that the ports were placed at least 10 to 15 cm away from the target anatomy of the gallbladder. The robot was docked along the left lateral abdomen. The patient was repositioned in reverse Trendelenburg position at 21 with the right side up at 7. Using a grasper for arm 3, a grasper for arm 4, including hook cautery for arm 1, the robotic system was docked and primed as described. Instruments were interchanged by the media assistant including hook cautery, Bovie cautery and clip appliers. Vessel sealer including robotic suction warehouse pricing and inventory clerk was used later in the case. I had sat at the console. Dense perihepatic he deductions were also identified. The gallbladder was reflected towards the dome of the liver. The gallbladder was moderately distended adding complexity to the case. Initial dissection was performed on the gallbladder infundibulum using indocyanine green to illuminate the cystic duct and common bile duct. Dome down technique was performed removing the gallbladder from the hepatic fossa starting from the fundus towards the infundibulum. The liver was reflected towards the diaphragm and starting at the gallbladder fundus, hook cautery was used to find the avascular plane between the liver and the gallbladder. As the gallbladder was dissected from the hepatic fossa, h emostasis was checked using vessel sealer along the posterior gallbladder. Next, indocyanine green was used to confirm the common bile duct as well as cystic duct. The cystic duct was short and dissection was performed at the junction of the cystic duct and infundibulum. The infundibulum was retracted laterally to expose the cystic duct away from the common bile duct. The cystic duct was dissected free from its surrounding tissue. FIREFLY was used to identify the cystic structures. A critical view of safety was obtained. Large PLASTIC clips were used throughout the entire case. Using a clip book author, a clip was placed at the junction of the infundibulum and cystic duct. The cystic duct was divided using vessel sealer. Next, moderate bleeding was found along the cystic artery. Bleeding was controlled using vessel sealer. Electro-Bovie cautery and vessel sealer was used to remove the gallbladder without decompression. Hemostasis was checked and found to be adequate. The robot was undocked. I re-scrubbed into the case. A 10 mm Endo Catch bag was used to remove the gallbladder in total via the epigastric incision after widening the incision. The specimen was removed from the abdominal cavity. All pneumoperitoneum instruments were evacuated from the abdominal cavity. The incisions were cleansed using dilute hydrogen peroxide. The incisions were reapproximated using 4-0 Monocryl in an interrupted subcuticular fashion. Please note along the trocar sites, local anesthetic was placed as a field block prior to insertion of all instruments. Liquid glue was applied to the skin. At the end of the procedure needle, sponge, and instrument count had been verified correct by the surgical dental assistant. The patient was transferred to postanesthesia care unit in stable condition. COMPLEXITY: Case was additional complexity due to severe dense intra-abdominal adhesions including body habitus of BMI over 55 as well as history of gastric bypass. Additional dissection time needed to perform procedure with increased risks of bleeding controlled with vessel sealer. Plan - Discharge Summary Discharge Rx Participant: Yes New Discharge Prescriptions: New Simethicone [Gas-X] 125 mg PO AC-TID PRN #20 capsule PRN Reason: Abdominal Distention Acetaminophen Tab [Tylenol Tab] 1,000 mg PO Q6HR PRN #30 tablet PRN Reason: Pain Continue Cyanocobalamin [Vitamin B-12] 1,000 mcg PO DAILY Albuterol Sulfate [Proair Hfa] 2 puff INHALATION Q6HR PRN PRN Reason: Shortness Of Breath Multivitamins, Thera [Multivitamin (formulary)] 1 each PO DAILY Ergocalciferol [Vitamin D2 (DRISDOL)] 50,000 unit PO MADRIGAL Nystatin [Nystop] 1 applic TOPICAL DAILY PRN PRN Reason: Rash Furosemide [Lasix] 20 mg PO DAILY amLODIPine [Norvasc] 10 mg PO QAM oxyCODONE-APAP 10-325MG [Percocet 10-325 mg] 1 tab PO Q6HR Magnesium Oxide 250 mg PO DAILY Dimethicone/Zinc Oxide [Inzo Zinc Oxide Barrier Cream] 1 applic TOPICAL BID PRN PRN Reason: Rash Clindamycin Gel [Cleocin T 1% Gel] 1 applicator TOPICAL BID PRN PRN Reason: Rash Budesonide/Formoterol Fumarate [Symbicort 80-4.5 Mcg Inhaler] 1 puff INHALATION BID Baclofen 10 mg PO HS Irbesartan/Hydrochlorothiazide [Irbesartan-Hctz 300-12.5 mg Tb] 1 each PO QAM Zinc 50 mg PO DAILY Lubiprostone [Amitiza] 24 mcg PO BID Nystatin 100,000 Unit/gm Powd [Mycostatin Powder] 1 applic TOPICAL BID #60 powder Discharge Medication List Albuterol Sulfate [Proair Hfa] 2 puff INHALATION Q6HR PRN 02/04/15 [History] Cyanocobalamin [Vitamin B-12] 1,000 mcg PO DAILY 02/04/15 [History] Multivitamins, Thera [Multivitamin (formulary)] 1 each PO DAILY 02/04/15 [Hist ory] Ergocalciferol [Vitamin D2 (DRISDOL)] 50,000 unit PO MADRIGAL 11/04/15 [History] Furosemide [Lasix] 20 mg PO DAILY 01/02/17 [History] Nystatin [Nystop] 1 applic TOPICAL DAILY PRN 01/02/17 [History] amLODIPine [Norvasc] 10 mg PO QAM 01/02/17 [History] Baclofen 10 mg PO HS 04/03/18 [History] Budesonide/Formoterol Fumarate [Symbicort 80-4.5 Mcg Inhaler] 1 puff INHALATION BID 04/03/18 [History] Clindamycin Gel [Cleocin T 1% Gel] 1 applicator TOPICAL BID PRN 04/03/18 [History] Dimethicone/Zinc Oxide [Inzo Zinc Oxide Barrier Cream] 1 applic TOPICAL BID PRN 04/03/18 [History] Magnesium Oxide 250 mg PO DAILY 04/03/18 [History] oxyCODONE-APAP 10-325MG [Percocet 10-325 mg] 1 tab PO Q6HR 04/03/18 [History] Irbesartan/Hydrochlorothiazide [Irbesartan-Hctz 300-12.5 mg Tb] 1 each PO QAM 04/02/19 [History] Lubiprostone [Amitiza] 24 mcg PO BID 02/01/21 [History] Zinc 50 mg PO DAILY 02/01/21 [History] Nystatin 100,000 Unit/gm Powd [Mycostatin Powder] 1 applic TOPICAL BID #60 powder 02/09/21 [Rx] Acetaminophen Tab [Tylenol Tab] 1,000 mg PO Q6HR PRN #30 tablet 02/21/21 [Rx] Simethicone [Gas-X] 125 mg PO AC-TID PRN #20 capsule 02/21/21 [Rx] [facility] [place] [facility] [place] [facility] Patient Instructions/Handouts: Laparoscopic Cholecystectomy (DC), Low Fat Diet (DC) Activity/Diet/Wound Care/Special Instructions: Recommend low-fat diet for the next 2 days. No lifting over 10 pounds in 2 weeks until March 07. May shower. No bath tub soaks for two weeks until March 07. Diet as tolerated. Use Tylenol, simethicone scheduled for the next 24-48 hours for best pain relief. Use ice along incisions for today to prevent swelling. Discharge Disposition: HOME SELF-CARE
[2021-02-21 12:51] VITALS: RESP 16
[2021-02-21 13:52] VITALS: BP 144/71; PULSE 100
== END 2021-02-21 14:20 | disposition home or self-care (01) ==
LOC: OR 07:33
PROVIDERS: ATTEND Surgery Plastic and Reconstructive Surgery
DX: K81.1 Chronic cholecystitis (principal); K66.0 Peritoneal adhesions (postprocedural) (postinfection); J45.909 Unspecified asthma, uncomplicated; M06.9 Rheumatoid arthritis, unspecified; G47.33 Obstructive sleep apnea (adult) (pediatric); R01.1 Cardiac murmur, unspecified; K44.9 Diaphragmatic hernia without obstruction or gangrene; G89.4 Chronic pain syndrome; D64.9 Anemia, unspecified; I11.0 Hypertensive heart disease with heart failure; I50.9 Heart failure, unspecified; E66.01 Morbid (severe) obesity due to excess calories; Z68.43 Body mass index [BMI] 50.0-59.9, adult; J44.9 Chronic obstructive pulmonary disease, unspecified; K21.9 Gastro-esophageal reflux disease without esophagitis; Z98.84 Bariatric surgery status; Z90.89 Acquired absence of other organs; Z98.51 Tubal ligation status; Z96.653 Presence of artificial knee joint, bilateral; Z98.890 Other specified postprocedural states; F41.9 Anxiety disorder, unspecified; Z83.3 Family history of diabetes mellitus; Z80.0 Family history of malignant neoplasm of digestive organs; Z80.3 Family history of malignant neoplasm of breast; Z79.51 Long term (current) use of inhaled steroids; Z79.899 Other long term (current) drug therapy; Z79.891 Long term (current) use of opiate analgesic; Z91.048 Other nonmedicinal substance allergy status
CPT/HCPCS: 88304; 47564; J2250; J1100; J2710; J0690; J2405; J2001; J3010; J1170 ×2; J0330; J2704; J1644

== ENCOUNTER → 2021-02-23 | Outpatient (CLI) | payer MEDICARE, OTHER ==
[2021-02-23 15:24] VITALS: BP 153/79; PULSE 75; RESP 16; TEMP 98.3; BMI 56.8
--- NOTE | 2021-02-23 15:51 | P.PN ---
Subjective Progress Note Date: 02/23/21 DATE OF SERVICE: 02/23/2021 CHIEF COMPLAINT: Morbid obesity HISTORY OF PRESENT ILLNESS: Mar Thomason is a 65-year-old female status post cholecystectomy, 02/21/21. She is POD 2. Her prior right upper quadrant pain is resolved. Intraoperative finding included moderate peritoneal adhesions and scar tissue. Her panniculitis is stable. At height of 5 feet 7.25 inches, her ideal body weight is 158 pounds. She comes in 362 pounds from 364 pounds, 2 week ago. She has lost 2 pounds in 2 weeks. Her highest weight was 596 pounds, BMI 92.8. She has lost 234 pounds. Her body mass index highest was 92.8. Today her BMI is 56.4. Percent excess weight loss is 53%. She is 204 pounds overweight. PHYSICAL EXAM: VITAL SIGNS: Height 5 foot 7.25 inches, weight 362 pounds. BMI 56.9 Vital Signs Temp 98.3 F 02/23/21 15:20 Pulse 75 02/23/21 15:20 Resp 16 02/23/21 15:20 BP 153/79 02/23/21 15:20 Pulse Ox GENERAL: Well-developed in no acute distress. HEENT: No scleral icterus. Extraocular movements grossly intact. Hears conversational speech. No nasal drainage. NECK: Supple without lymphadenopathy. CHEST: Nonlabored respirations with equal bilateral excursions. CARDIOVASCULAR: Regular rate and regular rhythm. Distal 2+ pulses. ABDOMEN: Incisions intact. No infection. MUSCULOSKELETAL: No clubbing, cyanosis. NEURO: No focal or lateralizing signs. Cranial nerves 2 through 12 grossly within normal limits. PSYCH: Appropriate affect. Alert and oriented to person, place and time. SKIN: Good skin turgor. Well perfused. Final Pathologic Diagnosis GALLBLADDER, CHOLECYSTECTOMY: Mild acalculous chronic cholecystitis. Focal cholesterolosis. ASSESSMENT: 1. Morbid obesity due to excess calories 2. Body mass index of 92.8, initial to 56.9 3. Osteoarthritis of the knees. 4. Rheumatoid arthritis 5. Osteoarthritis of the lower back. 6. Hypertensive heart disease. 7. Chronic pain syndrome 8. Gastroesophageal reflux disease 9. Chronic panniculitis 10. Asthma 11. Chronic obstructive pulmonary disorder 12. Obstructive sleep apnea 13. Anxiety disorder 14. Congestive heart failure 15. Hiatal hernia 16. Cholecystitis PLAN: 1. Her pain has improved. 2. Recovery for 2 weeks described. Objective - Vital Signs Vital signs: Vital Signs Temp 98.3 F 02/23/21 15:20 Pulse 75 02/23/21 15:20 Resp 16 02/23/21 15:20 BP 153/79 02/23/21 15:20 Pulse Ox Intake & Output 02/22/21 02/23/21 02/23/21 18:59 06:59 18:59 Weight 164.654 kg
== END | disposition home or self-care (01) ==
LOC: BARWHC3 13:48
PROVIDERS: ATTEND Surgery Plastic and Reconstructive Surgery
DX: E66.01 Morbid (severe) obesity due to excess calories (principal); M17.0 Bilateral primary osteoarthritis of knee; M06.9 Rheumatoid arthritis, unspecified; K81.1 Chronic cholecystitis; I11.0 Hypertensive heart disease with heart failure; G89.4 Chronic pain syndrome; F41.9 Anxiety disorder, unspecified; G47.33 Obstructive sleep apnea (adult) (pediatric); K21.9 Gastro-esophageal reflux disease without esophagitis; K44.9 Diaphragmatic hernia without obstruction or gangrene; M47.9 Spondylosis, unspecified; M79.3 Panniculitis, unspecified; J44.9 Chronic obstructive pulmonary disease, unspecified; I50.9 Heart failure, unspecified; Z68.43 Body mass index [BMI] 50.0-59.9, adult; Z88.9 Allergy status to unspecified drugs, medicaments and biological substances
CPT/HCPCS: 99211

== ENCOUNTER → 2021-05-04 | Outpatient (CLI) | payer MEDICARE, OTHER ==
[2021-05-04 13:49] VITALS: BP 162/81; PULSE 96; RESP 18; TEMP 98; BMI 56.8
--- NOTE | 2021-05-04 13:57 | P.PN ---
Subjective Progress Note Date: 05/04/21 She comes in with panniculitis and pulls on her back. She has chronic infections. Recommend panniculectomy. Needs 75 grams. Food diary journal. Surgery was 2012. Highest 590 pounds. Corrections micro and macro nutrients. Follow-up in 2 weeks with food diary journal. Objective - Vital Signs Vital signs: Vital Signs Temp 98 F 05/04/21 13:42 Pulse 96 05/04/21 13:42 Resp 18 05/04/21 13:42 BP 162/81 05/04/21 13:42 Pulse Ox Intake & Output 05/03/21 05/04/21 05/04/21 18:59 06:59 18:59 Weight 164.654 kg
[2021-05-04 14:56] LABS: HCT 38.1 % (34.0-46.0); HGB 12.6 gm/dL (11.4-16.0); MCH 27.6 pg (25.0-35.0); MCHC 33.1 g/dL (31.0-37.0); MCV 83.3 fL (80.0-100.0); Mean Platelet Volume 8.7; Platelet Count 238 k/uL (150-450); RBC 4.57 m/uL (3.80-5.40); RDW 13.9 % (11.5-15.5); WBC 10.4 k/uL (3.8-10.6)
[2021-05-05 00:38] LABS: Hemoglobin A1C 5.4 % (4.0-6.0)
[2021-05-05 05:38] LABS: INR 0.96 (0.90-1.11); Partial Thromboplastin Time 28.9 sec (23.5-31.0); Prothrombin Time 10.5 sec (9.9-11.9)
[2021-05-05 05:49] LABS: % Iron Saturation 15.52 (12.00-45.00); African American GFR (CKD) 55.3 (60.0-200.0); Albumin 4.1 g/dL (3.80-4.90); Albumin/Globulin Ratio 1.64 (1.60-3.17); Anion Gap 10.5 mmol/L (4.00-12.00); BUN/Creat Ratio 16.67 Ratio (12.00-20.00); Calcium 9.3 mg/dL (8.7-10.3); Carbon Dioxide 28.5 mmol/L (21.6-31.8); Chol/HDL Ratio 4.28; Globulin 2.5 g/dL (1.6-3.3); Magnesium 1.8 mg/dL (1.5-2.4); Non-African American GFR(CKD) 47.7 (60.0-200.0); Phosphorus 4.4 mg/dL (2.4-5.1); Potassium 4.1 mmol/L (3.5-5.5); Total Bilirubin 0.4 mg/dL (0.3-1.2); Total Protein 6.6 g/dL (6.2-8.2)
[2021-05-05 05:57] LABS: Ferritin 26.1 ng/mL (10.0-291.0)
[2021-05-05 06:30] LABS: Folate, Serum 10.2 ng/mL
[2021-05-05 13:31] LABS: Vitamin A 44 ug/dL (38-106)
[2021-05-05 13:32] LABS: Zinc, Serum 54 ug/dL (60-130)
[2021-05-06 08:23] LABS: Vit B1(Thiamine) 71 ug/L (38-122)
[2021-05-08 18:50] LABS: Selenium 107 mcg/L (63-160)
== END ==
LOC: BARWHC3 13:02
PROVIDERS: ATTEND Surgery Plastic and Reconstructive Surgery
DX: E66.01 Morbid (severe) obesity due to excess calories (principal); D50.8 Other iron deficiency anemias; E44.0 Moderate protein-calorie malnutrition; E55.9 Vitamin D deficiency, unspecified; K74.1 Hepatic sclerosis; N19 Unspecified kidney failure; K50.90 Crohn's disease, unspecified, without complications; Z68.43 Body mass index [BMI] 50.0-59.9, adult
CPT/HCPCS: 84255; 84134; 84425; 80061; 80053; 82607; 82728; 82525; 82746; 83540; 83550; 83735; 84100; 84443; 84590; 84630; 85027; 85610; 85730; 82306; 83970; 83036; 36415; G0463; 99211

== ENCOUNTER → 2021-06-28 | Outpatient (CLI) | payer MEDICARE, OTHER | END | disposition home or self-care (01) | LOC: LABWHC1 13:56 | PROVIDERS: ATTEND Surgery Plastic and Reconstructive Surgery | DX: E66.01 Morbid (severe) obesity due to excess calories (principal); K50.90 Crohn's disease, unspecified, without complications; Z98.84 Bariatric surgery status | CPT/HCPCS: 36415; 84630 ==

== ENCOUNTER → 2021-12-20 | Outpatient (CLI) | payer MEDICARE, OTHER ==
[2021-12-20 09:05] VITALS: BP 136/80; PULSE 87; RESP 18; TEMP 98.4
--- NOTE | 2021-12-20 10:19 | P.HPOB ---
History of Present Illness H&P Date: 12/20/21 Chief Complaint: The patient is here for her routine gynecologic exam and ma mmogram. This is a 66-year-old 001 with an LMP of 2013. The patient is without gynecologic complaints and denies any postmenopausal bleeding. Review of Systems She has lost about 8 pounds over the past year. Respiratory: Occasional asthma symptoms improved with her medication. She denies cardiac or GI problems. Past Medical History Past Medical History: Asthma, GERD/Reflux, GI Bleed, Hypertension, Rheumatoid Arthritis (RA), Sleep Apnea/CPAP/BIPAP Additional Past Medical History / Comment(s): HEART MURMUR, ANEMIA, hiatal hernia, and chronic back pain, does not use CPAP. PAST ACUPRESSURE THERAPIST HISTORY: She has no history of STDs. History of Any Multi-Drug Resistant Organisms: None Reported Past Surgical History: Bariatric Surgery, Cholecystectomy, Joint Replacement, Tonsillectomy, Tubal Ligation, Uterine Ablation Additional Past Surgical History / Comment(s): BILATERAL TOTAL KNEE REPLACEMENTS, D&C, upper endoscopy with esophageal dilatation X2, gastric bypass. Colonoscopy 2020. Past Anesthesia/Blood Transfusion Reactions: Previous Problems w/ Anesthesia, Family History of Problems w/ Anesthesia Additional Past Anesthesia/Blood Transfusion Reaction / Comment(s): Pt states awoke during surgery attributed to Sleep Apnea. Past Psychological History: Anxiety Smoking Status: Never smoker, Second hand smoke exposure Past Alcohol Use History: Occasional (Occasional drink at night after her son in 2020.) Past Drug Use History: None Reported Additional History: She has been since 2019 and this is her third marriage. She is disabled. - Past Family History Mother Family Medical History: Diabetes Mellitus Father Family Medical History: Cancer Additional Family Medical History / Comment(s): LIVER CANCER, paternal aunt had breast cancer and an uncle had colon cancer. Brother(s) Family Medical History: Seizure Disorder Additional Family Medical History / Comment(s): from seizure in 2020. Medications and Allergies Home Medications Medication Instructions Recorded Confirmed Type Albuterol Sulfate [Proair Hfa] 2 puff INHALATION Q6HR PRN 02/04/15 05/18/21 History Cyanocobalamin [Vitamin B-12] 1,000 mcg PO DAILY 02/04/15 12/20/21 History Multivitamins, Thera [Multivitamin 1 each PO DAILY 02/04/15 12/20/21 History (formulary)] Ergocalciferol [Vitamin D2 50,000 unit PO MADRIGAL 11/04/15 12/20/21 History (DRISDOL)] Furosemide [Lasix] 20 mg PO DAILY 01/02/17 12/20/21 History Nystatin [Nystop] 1 applic TOPICAL DAILY PRN 01/02/17 12/20/21 History amLODIPine [Norvasc] 10 mg PO QAM 01/02/17 05/18/21 History Baclofen 10 mg PO HS 04/03/18 05/18/21 History Budesonide/Formoterol Fumarate 1 puff INHALATION BID 04/03/18 05/18/21 History [Symbicort 80-4.5 Mcg Inhaler] Clindamycin Gel [Cleocin T 1% Gel] 1 applicator TOPICAL BID PRN 04/03/18 05/18/21 History Dimethicone/Zinc Oxide [Inzo Zinc 1 applic TOPICAL BID PRN 04/03/18 12/20/21 History Oxide Barrier Cream] Magnesium Oxide 250 mg PO DAILY 04/03/18 12/20/21 History Irbesartan/Hydrochlorothiazide 1 each PO QAM 04/02/19 05/18/21 History [Irbesartan-Hctz 300-12.5 mg Tb] Lubiprostone [Amitiza] 24 mcg PO BID 02/01/21 05/18/21 History Zinc 50 mg PO DAILY 02/01/21 12/20/21 History Nystatin 100,000 Unit/gm Powd 1 applic TOPICAL BID #60 powder 02/09/21 12/20/21 Rx [Mycostatin Powder] Acetaminophen Tab [Tylenol Tab] 1,000 mg PO Q6HR PRN #30 tablet 02/21/21 05/18/21 Rx Simethicone [Gas-X] 125 mg PO AC-TID PRN #20 capsule 02/21/21 12/20/21 Rx Nystatin 100,000 Unit/gm Powd 1 applic TOPICAL BID #60 powder 02/23/21 12/20/21 Rx [Mycostatin Powder] Calcium Citrate 1,200 mg PO DAILY 05/18/21 12/20/21 History Allergies Allergy/AdvReac Type Severity Reaction Status Date / Time nickel Allergy Unknown Rash/Hives Verified 12/20/21 08:55 Exam Vital Signs Temp Pulse Resp BP Pulse Ox 12/20/21 09:00 98.4 F 87 18 136/80 98 Intake and Output 12/19/21 12/20/21 12/20/21 22:59 06:59 14:59 Other: Weight 161.479 kg Height 5 feet 6-1/2 inches, weight 356 pounds, BMI 56.6. This is a well-developed well-nourished obese black female who is alert and oriented times 3 in no acute distress. HEENT: Within normal limits. NECK: Supple without mass or thyromegaly. CHEST AND LUNGS: Clear to auscultation. HEART: Regular rate and rhythm. BREASTS: Are without mass or discharge. There is a benign-appearing mole on the left areola at the 12 o'clock position measuring 12 x 10 mm. AXILLARY EXAM: Negative for adenopathy. BACK: Negative for CVA tenderness. ABDOMEN: Soft, obese, nontender, without palpable masses. PELVIC EXAM: Normal external genitalia with minimal atrophy. Cervix and vagina appear normal with minimal atrophy. There is no unusual discharge. There is no evidence of prolapse. The uterus is midposition, nongravid size and nontender. There are no palpable adnexal masses or tenderness. Bimanual examination is somewhat limited secondary to her size. RECTAL EXAM: Rectovaginal exam is negative for mass or tenderness and is negative for occult blood. EXTREMITIES: Nontender. IMPRESSION: 1. 66-year-old menopausal female with normal gynecologic exam. 2. Benign-appearing left areola mole at the 12 o'clock position. 3. Obesity PLAN: 1. Pap smear was deferred since she had a normal Pap smear cotest on 11/23/2020. 2. Self breast awareness was discussed with the patient. We have also discussed symptoms associated with inflammatory breast cancer. 3. Screening mammogram will be done today. 4. She had a normal bone density test in 2016. We will plan on repeating the bone density test again in 2022 at her next annual examination. 5. She was advised to allow her wardrobe consultant to view the left areola mole at the time of her regular examination by the wardrobe consultant. 6. She has completed her Covid vaccination series and has received a booster. 7. She was advised to return in one year for her annual well woman exam.
== END ==
LOC: WWCWWP 08:47
PROVIDERS: ATTEND Obstetrics & Gynecology
DX: Z12.31 Encounter for screening mammogram for malignant neoplasm of breast (principal); Z01.419 Encounter for gynecological examination (general) (routine) without abnormal findings; J45.909 Unspecified asthma, uncomplicated; M19.90 Unspecified osteoarthritis, unspecified site; I10 Essential (primary) hypertension; F41.9 Anxiety disorder, unspecified; Z80.3 Family history of malignant neoplasm of breast; Z79.51 Long term (current) use of inhaled steroids; E66.9 Obesity, unspecified; D24.2 Benign neoplasm of left breast; Z88.9 Allergy status to unspecified drugs, medicaments and biological substances
CPT/HCPCS: 77063; 77067

== ENCOUNTER → 2022-02-07 | Outpatient (CLI) | payer MEDICARE, OTHER ==
--- NOTE | 2022-02-07 15:55 | P.PN ---
Subjective Progress Note Date: 02/07/22 this is a 66-year-old female patient is being seen in follow-up regarding her obstructive sleep apnea. The patient was diagnosed having severe KENIA in the past and the patient has undergone bariatric surgery which included gastric bypass surgery and this was done at [facility] many years back and c urrently she is being followed up with Dr. Guerrero. Noted the patient has lost significant amount of weight and she is in the process of losing more weight. She has lost more than 300 pounds. During the last evaluation, she is to weigh around 367 pounds and currently she is down to 356 pounds. Note that I did another polysomnogram on this patient to evaluate the presence of sleep apnea and the patient was found to have residual KENIA with an AHI of 22. Based on that, the patient underwent a CPAP titration and she was titrated to CPAP pressure of 10 cm of water and currently she is using a Airfit P10 and large size nasal pillows. The patient is coming in for a compliance check. I reviewed her compliance data that was collected between 01/07/2022 and 02/05/2022. The compliance data is not reflecting an average of 4 hours of CPAP use and this is probably related to the fact that the patient is taking longer naps during the day and she is not using her CPAP machine. She goes to bed around 8 PM and she gets out of bed at around 1 AM and her day starts. Note that the patient is also taking naps in the afternoon and those naps last sometimes for around 3 hours. Based on the compliance data, the patient is using her machine almost 80% of the time and AHI while on treatment is down to 1.8. No significant leaks around the mask. She feels better while on the CPAP machine. She is committed to lose more weight. She has other comorbidities include hypertension, hyperlipidemia and bronchial asthma. Fatigue and tiredness and sleepiness is improved while being on CPAP therapy. Her current Houston score is down to 6. Objective - Exam BP is 133/66, pulse is 89, respirations 18, weight is currently on 56 pounds, temperature is 97.3, Houston score is down to 6, saturation 96% on room air oxygen Gen. appearance obese, , comfortable and the patient is not having any distress at this point in time. The patient appeared well nourished and normally developed. Vital signs as documented. Head exam is unremarkable. No scleral icterus or corneal arcus noted. Neck is without jugular venous distension, thyromegaly, or carotid bruits. Carotid upstrokes are brisk bilaterally. Lungs are clear to auscultation and percussion. Cardiac exam reveals the PMI to be normally sized and situated. Rhythm is regular. First and second heart sounds normal. No murmurs, rubs or gallops. Abdominal exam reveals normal bowel sounds, no masses, no organomegaly and no aortic enlargement. Abdomen is obese and the patient's organs are not accurately palpated.. Extremities are nonedematous and both femoral and pedal pulses are normal.Examination of the skin revealed no evidence of significant rashes, suspicious appearing nevi or other concerning lesions.Neurologically, the patient is awake and alert and the patient does not have any focal neurological deficit. Cranial nerves are essentially intact. Assessment and Plan Plan: 1 obstructive sleep apnea, moderately severe with an AHI of 22, worse during REM sleep. Despite undergoing bariatric surgery, the patient continues to have residual obstructive sleep apnea which is moderately in severity and its worse during REM sleep. Based on that, she was started on CPAP therapy at a pressure of 10 cm of water based on a titration that was done in September 2021. Her compliance he needs to be further followed and improved. 2 morbid obesity post bariatric surgery, continues to lose weight and her current weight is down to 356 pounds 3 chronic hypersomnia, improved 4 bronchial asthma 5 hypertension 6 hyperlipidemia 7 acid reflux Plan Encourage further weight loss Continue CPAP therapy at a similar pressure of 10 cm of water We will ask the patient to be more compliant and utilizes machine even when she is taking naps during the day Keep the same mask interface which is an Airfit P10 on large size nasal pillows We'll continue to follow
== END ==
LOC: SLEEP 15:00
PROVIDERS: ATTEND Internal Medicine Critical Care Medicine
DX: G47.33 Obstructive sleep apnea (adult) (pediatric) (principal); E66.01 Morbid (severe) obesity due to excess calories; Z98.84 Bariatric surgery status; J45.909 Unspecified asthma, uncomplicated; I10 Essential (primary) hypertension; E78.5 Hyperlipidemia, unspecified; K21.9 Gastro-esophageal reflux disease without esophagitis; Z99.89 Dependence on other enabling machines and devices; Z88.9 Allergy status to unspecified drugs, medicaments and biological substances

== ENCOUNTER 2022-05-26 18:44 | Emergency (ER) | payer MEDICARE, OTHER ==
[2022-05-26 19:19] VITALS: BP 96/38; PULSE 87; RESP 20; TEMP 98.3
[2022-05-26] MEDS ORDERED: SODIUM CHLORIDE 0.9% 1,000 ML IV STA (19:55)
[2022-05-26 20:20] LABS: Basophils # (A) 0.1 k/uL (0-0.2); Basophils % (A) 1 %; Eosinophils # (A) 0.3 k/uL (0-0.7); Eosinophils % (A) 4 %; HCT 34.7 % (34.0-46.0); Lymphocytes # (A) 2.3 k/uL (1.0-4.8); Lymphocytes % (A) 28 %; MCH 26.9 pg (25.0-35.0); MCHC 31.7 g/dL (31.0-37.0); Mean Platelet Volume 8.4; Monocytes # (A) 0.4 k/uL (0-1.0); Monocytes % (A) 5 %; Neutrophils # (A) 5.1 k/uL (1.3-7.7); Neutrophils % (A) 61 %; Platelet Count 273 k/uL (150-450); RBC 4.08 m/uL (3.80-5.40); RDW 13.9 % (11.5-15.5); WBC 8.4 k/uL (3.8-10.6)
--- NOTE | 2022-05-26 20:22 | ED ---
Extremity Problem HPI - General Chief complaint: Extremity Injury, Lower Stated complaint: muscle spasms Time Seen by Provider: 05/26/22 19:27 Source: patient, RN notes reviewed Mode of arrival: wheelchair Limitations: no limitations - History of Present Illness Initial comments: This is a 67-year-old female who presents to the emergency department for muscle cramps. States that she acquires these intermittent bouts of severe muscle cramps and spasms in the bilateral lower extremities. This has been an ongoing issue for many years. 5 years ago she was hospitalized [facility]. States that the muscle cramps spread into her arms and chest. A cause was not determined at that time. She has continued to have cramping since then. It has been severe again over the last couple of days. She is taking [id number] magnesium, drinking vinegar and tonic water, and applying Theraworx. She also takes prescription baclofen. Earlier today, she saw her foot and toes curl inwards due to the cramping. States that symptoms do seem to improve with ambulation. She use to be on quinine daily, which she states was very helpful, however she has had to stop taking it due to the risks associated with long-term use. Denies any fevers, chills, sore throat, cough, dyspnea, chest pain, palpitations, abdominal pain, nausea, vomiting, diarrhea, back pain, or headaches. MD Complaint: extremity pain Location: bilateral lower extremity History of Same: Yes Improves with: movement Worsens with: rest - Related Data Home Medications Medication Instructions Recorded Confirmed Albuterol Sulfate [Proair Hfa] 2 puff INHALATION Q6HR PRN 02/04/15 03/15/22 Cyanocobalamin [Vitamin B-12] 1,000 mcg PO DAILY 02/04/15 03/15/22 Multivitamins, Thera [Multivitamin 1 each PO DAILY 02/04/15 03/15/22 (formulary)] Ergocalciferol [Vitamin D2 50,000 unit PO MADRIGAL 11/04/15 03/15/22 (DRISDOL)] Nystatin [Nystop] 1 applic TOPICAL DAILY PRN 01/02/17 03/15/22 amLODIPine [Norvasc] 10 mg PO QAM 01/02/17 03/15/22 Baclofen 10 mg PO HS 04/03/18 03/15/22 Budesonide/Formoterol Fumarate 1 puff INHALATION BID 04/03/18 03/15/22 [Symbicort 80-4.5 Mcg Inhaler] Clindamycin Gel [Cleocin T 1% Gel] 1 applicator TOPICAL BID PRN 04/03/18 03/15/22 Dimethicone/Zinc Oxide [Inzo Zinc 1 applic TOPICAL BID PRN 04/03/18 03/15/22 Oxide Barrier Cream] Magnesium Oxide 250 mg PO DAILY 04/03/18 03/15/22 Irbesartan/Hydrochlorothiazide 1 each PO QAM 04/02/19 03/15/22 [Irbesartan-Hctz 300-12.5 mg Tb] Lubiprostone [Amitiza] 24 mcg PO BID 02/01/21 03/15/22 Zinc 50 mg PO DAILY 02/01/21 03/15/22 Calcium Citrate 1,200 mg PO DAILY 05/18/21 03/15/22 Spironolactone 25 mg PO DAILY 03/15/22 03/15/22 metFORMIN HCL 500 mg PO BID 03/15/22 03/15/22 oxyCODONE-APAP 10-325MG [Percocet 1 tab PO Q6HR PRN 03/15/22 03/15/22 10-325 mg] Previous Rx's Medication Instructions Recorded Nystatin 100,000 Unit/gm Powd 1 applic TOPICAL BID #60 powder 02/09/21 [Mycostatin Powder] Simethicone [Gas-X] 125 mg PO AC-TID PRN #20 capsule 02/21/21 carisoprodoL [Soma] 350 mg PO TID PRN #20 tablet 05/26/22 Allergies Allergy/AdvReac Type Severity Reaction Status Date / Time nickel Allergy Unknown Rash/Hives Verified 05/26/22 19:17 Review of Systems ROS Statement: Those systems with pertinent positive or pertinent negative responses have been documented in the HPI. ROS Other: All systems not noted in ROS Statement are negative. Past Medical History Past Medical History: Asthma, GERD/Reflux, GI Bleed, Hypertension, Rheumatoid Arthritis (RA), Sleep Apnea/CPAP/BIPAP Additional Past Medical History / Comment(s): HEART MURMUR, ANEMIA, hiatal hernia, and chronic back pain, does not use CPAP. 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 History of Any Multi-Drug Resistant Organisms: None Reported Past Surgical History: Bariatric Surgery, Cholecystectomy, Joint Replacement, Tonsillectomy, Tubal Ligation, Uterine Ablation Additional Past Surgical History / Comment(s): BILATERAL TOTAL KNEE REPLACEMENTS, D&C, upper endoscopy with esophageal dilatation X2, gastric bypass. Colonoscopy 2020. Past Anesthesia/Blood Transfusion Reactions: Previous Problems w/ Anesthesia, Family History of Problems w/ Anesthesia Additional Past Anesthesia/Blood Transfusion Reaction / Comment(s): Pt states awoke during surgery attributed to Sleep Apnea. Past Psychological History: Anxiety Smoking Status: Never smoker, Second hand smoke exposure Past Alcohol Use History: Occasional Past Drug Use History: None Reported - Past Family History Mother Family Medical History: Diabetes Mellitus Brother(s) Family Medical History: Seizure Disorder Additional Family Medical History / Comment(s): from seizure in 2020. Father Family Medical History: Cancer Additional Family Medical History / Comment(s): LIVER CANCER, paternal aunt had breast cancer and an uncle had colon cancer. General Exam Limitations: no limitations General appearance: alert, in no apparent distress Head exam: Present: atraumatic, normocephalic, normal inspection Respiratory exam: Present: normal lung sounds bilaterally. Absent: respiratory distress, wheezes, rales, rhonchi, stridor Cardiovascular Exam: Present: regular rate, normal rhythm, normal heart sounds. Absent: systolic murmur, diastolic murmur, rubs, gallop, clicks Extremities exam: Present: normal inspection, full ROM, normal capillary refill, other (2+ dorsalis pedis and tibialis posterior pulses bilaterally.). Absent: tenderness, pedal edema, joint swelling, calf tenderness Neurological exam: Present: alert, oriented X3, CN II-XII intact Psychiatric exam: Present: normal affect, normal mood Skin exam: Present: warm, dry, intact, normal color. Absent: rash Course Vital Signs 05/26/22 19:12 Temperature 98.3 F Pulse Rate 87 Respiratory 20 Rate Blood Pressure 96/38 O2 Sat by Pulse 97 Oximetry Medical Decision Making - Medical Decision Making This is a 67-year-old female who presents to the emergency department for muscle cramps. Lab work consistent with poor kidney function and was otherwise nonactionable. She is taking multiple trzo-tel-rissorj treatments to try and combat this issue herself. Discussed that it is possible this may be related to peripheral arterial disease. She has elevated cholesterol that is not currently being treated, which further increases this possibility. Lab work did not reveal any signs of vitamin deficiencies, and she is already taking multiple vitamins. She was given a prescription for an outpatient arterial ultrasound of the bilateral lower extremities. Results will be sent to her primary care provider. Instructed her to contact the hospital next week to schedule the ultrasound. Prescription for Soma provided as well. Discussed that this can work differently than baclofen and may be more effective for her symptoms. Advised she take this at night until she knows how it affects her, as it may be sedating. Also instructed her to avoid taking this with the baclofen. Also advised she further discuss her symptoms with her primary care provider. She may have an undiagnosed autoimmune problem or have something konrad g the lines of multiple sclerosis contributing to her ongoing symptoms. Return precautions reviewed in depth, the patient is instructed to return to the emergency department with any new, worsening, or concerning symptoms. Patient verbalized understanding. This case was discussed in detail with the attending ED physician. Presentation, findings, and treatment plan discussed in detail as well. - Lab Data Result diagrams: 05/26/22 20:12 05/26/22 20:12 Lab Results 05/26/22 05/26/22 05/26/22 Range/Units 19:55 20:12 20:12 WBC 8.4 (3.8-10.6) k/uL RBC 4.08 (3.80-5.40) m/uL Hgb 11.0 L (11.4-16.0) gm/dL Hct 34.7 (34.0-46.0) % MCV 85.0 (80.0-100.0) fL MCH 26.9 (25.0-35.0) pg MCHC 31.7 (31.0-37.0) g/dL RDW 13.9 (11.5-15.5) % Plt Count 273 (150-450) k/uL MPV 8.4 Neutrophils % 61 % Lymphocytes % 28 % Monocytes % 5 % Eosinophils % 4 % Basophils % 1 % Neutrophils # 5.1 (1.3-7.7) k/uL Lymphocytes # 2.3 (1.0-4.8) k/uL Monocytes # 0.4 (0-1.0) k/uL Eosinophils # 0.3 (0-0.7) k/uL Basophils # 0.1 (0-0.2) k/uL Sodium 137 (137-145) mmol/L Potassium 5.0 (3.5-5.1) mmol/L Chloride 107 (98-107) mmol/L Carbon Dioxide 25 (22-30) mmol/L Anion Gap 5 mmol/L BUN 35 H (7-17) mg/dL Creatinine 1.64 H (0.52-1.04) mg/dL Est GFR (CKD-EPI)AfAm 38 (>60 ml/min/1.73 sqM) Est GFR (CKD-EPI)NonAf 33 (>60 ml/min/1.73 sqM) Glucose 96 (74-99) mg/dL Calcium 8.8 (8.4-10.2) mg/dL Phosphorus 4.0 (2.5-4.5) mg/dL Magnesium 2.3 (1.6-2.3) mg/dL Total Bilirubin 0.2 (0.2-1.3) mg/dL AST 23 (14-36) U/L ALT 14 (4-34) U/L Alkaline Phosphatase 103 (38-126) U/L Creatine Kinase 117 (30-135) U/L NT-Pro-B Natriuret Pep 54 pg/mL Total Protein 6.6 (6.3-8.2) g/dL Albumin 3.7 (3.5-5.0) g/dL Urine Color Urine Appearance (Clear) Urine pH (5.0-8.0) Ur Specific [place] (1.001-1.035) Urine Protein (Negative) Urine Glucose (UA) (Negative) Urine Ketones (Negative) Urine Blood (Negative) Urine Nitrite (Negative) Urine Bilirubin (Negative) Urine Urobilinogen (<2.0) mg/dL Ur Leukocyte Esterase (Negative) 05/26/22 Range/Units 20:46 WBC (3.8-10.6) k/uL RBC (3.80-5.40) m/uL Hgb (11.4-16.0) gm/dL Hct (34.0-46.0) % MCV (80.0-100.0) fL MCH (25.0-35.0) pg MCHC (31.0-37.0) g/dL RDW (11.5-15.5) % Plt Count (150-450) k/uL MPV Neutrophils % % Lymphocytes % % Monocytes % % Eosinophils % % Basophils % % Neutrophils # (1.3-7.7) k/uL Lymphocytes # (1.0-4.8) k/uL Monocytes # (0-1.0) k/uL Eosinophils # (0-0.7) k/uL Basophils # (0-0.2) k/uL Sodium (137-145) mmol/L Potassium (3.5-5.1) mmol/L Chloride (98-107) mmol/L Carbon Dioxide (22-30) mmol/L Anion Gap mmol/L BUN (7-17) mg/dL Creatinine (0.52-1.04) mg/dL Est GFR (CKD-EPI)AfAm (>60 ml/min/1.73 sqM) Est GFR (CKD-EPI)NonAf (>60 ml/min/1.73 sqM) Glucose (74-99) mg/dL Calcium (8.4-10.2) mg/dL Phosphorus (2.5-4.5) mg/dL Magnesium (1.6-2.3) mg/dL Total Bilirubin (0.2-1.3) mg/dL AST (14-36) U/L ALT (4-34) U/L Alkaline Phosphatase (38-126) U/L Creatine Kinase (30-135) U/L NT-Pro-B Natriuret Pep pg/mL Total Protein (6.3-8.2) g/dL Albumin (3.5-5.0) g/dL Urine Color Light Yellow Urine Appearance Clear (Clear) Urine pH 5.0 (5.0-8.0) Ur Specific [place] 1.016 (1.001-1.035) Urine Protein Negative (Negative) Urine Glucose (UA) Negative (Negative) Urine Ketones Negative (Negative) Urine Blood Negative (Negative) Urine Nitrite Negative (Negative) Urine Bilirubin Negative (Negative) Urine Urobilinogen <2.0 (<2.0) mg/dL Ur Leukocyte Esterase Negative (Negative) Disposition Clinical Impression: Muscle spasm of both lower legs, Muscle cramps Disposition: HOME SELF-CARE Instructions (If sedation given, give patient instructions): Muscle Spasm (ED) Additional Instructions: Return to the emergency department with any new, worsening, or concerning symptoms. Contact the hospital on Sunday for an ultrasound of your legs. Follow up with Dr. Mcneil to discuss ongoing symptoms and the possibility of multiple sclerosis, which would require an MRI of the brain. Try taking the Soma when you have cramping. Do not take this with the Baclofen, you can use one or the other. Prescriptions: carisoprodoL [Soma] 350 mg PO TID PRN #20 tablet PRN Reason: Muscle Spasm Is patient prescribed a controlled substance at d/c from ED?: Yes When asked, does pt state using other controlled substances?: No If prescribed controlled substance>3 days was MAPS reviewed?: Prescribed <3 Days Referrals: Sedrick Mcneil DO [Primary Care Provider] - 1-2 days
[2022-05-26 20:30] LABS: Albumin 3.7 g/dL (3.5-5.0); Calcium 8.8 mg/dL (8.4-10.2); Total Bilirubin 0.2 mg/dL (0.2-1.3); Total Protein 6.6 g/dL (6.3-8.2)
[2022-05-26 20:31] LABS: Magnesium 2.3 mg/dL (1.6-2.3)
[2022-05-26 20:54] LABS: Appearance,Urine Clear (Clear); Bilirubin,Urine Negative (Negative); Blood,Urine Negative (Negative); Color,Urine Light Yellow; Glucose,Urine (UA) Negative (Negative); Ketones,Urine Negative (Negative); Leukocyte Esterase,Urine Negative (Negative); Nitrite,Urine Negative (Negative); Protein,Urine Negative (Negative); Specific Gravity,Urine 1.016 (1.001-1.035); Urobilinogen,Urine <2.0 mg/dL (<2.0)
== END 2022-05-26 22:37 | disposition home or self-care (01) ==
LOC: EC 18:44
DX: M62.831 Muscle spasm of calf (principal); J45.909 Unspecified asthma, uncomplicated; K21.9 Gastro-esophageal reflux disease without esophagitis; I10 Essential (primary) hypertension; M06.9 Rheumatoid arthritis, unspecified; F41.9 Anxiety disorder, unspecified; Z77.22 Contact with and (suspected) exposure to environmental tobacco smoke (acute) (chronic); Z91.048 Other nonmedicinal substance allergy status; Z79.899 Other long term (current) drug therapy
CPT/HCPCS: 36415; 80053; 81003; 82550; 82607; 83735; 83880; 84100; 85025; 96360; 99283

== ENCOUNTER → 2022-09-04 | Outpatient (CLI) | payer MEDICARE, OTHER | END | disposition home or self-care (01) | LOC: LABWHC1 07:44 → EDSTATUS 07:45 | PROVIDERS: ATTEND Surgery Plastic and Reconstructive Surgery | DX: Z71.51 Drug abuse counseling and surveillance of drug abuser (principal) | CPT/HCPCS: 80307; G0480; G0482; 80323 ==

== ENCOUNTER → 2022-09-06 | Outpatient (CLI) | payer MEDICARE, OTHER ==
[2022-09-06 15:18] VITALS: BP 163/84; PULSE 108; TEMP 98.6; BMI 56.3
--- NOTE | 2022-09-06 15:46 | P.BASOAP ---
Subjective Progress Note Date: 09/06/22 Looking into panniculectomy. Plan for resection. Needs dermatology. Weight is stable. Needs updated labs with correction of nutritional deficiencies. History of tobacco cessation reinforced. Objective - Vital Signs Vital signs: Vital Signs Temp 98.6 F 09/06/22 15:13 Pulse 108 H 09/06/22 15:13 Resp BP 163/84 09/06/22 15:13 Pulse Ox FiO2 Intake & Output 09/05/22 09/06/22 09/06/22 18:59 06:59 18:59 Weight 163.293 kg Assessment/Plan Plan: Date: 09/06/22 Initial Weight: 160.163 kg Initial BMI: 55.3 Current Weight: 163.293 kg Current BMI: 56.3 Type of Surgery: Total Volume in Band: Previous Volume: Volume Removed: Volume Added: Band Size:
== END ==
LOC: BARWHC3 14:12
PROVIDERS: ATTEND Surgery Plastic and Reconstructive Surgery
DX: E66.01 Morbid (severe) obesity due to excess calories (principal); Z68.43 Body mass index [BMI] 50.0-59.9, adult; Z91.048 Other nonmedicinal substance allergy status
CPT/HCPCS: 99211

== ENCOUNTER → 2022-09-19 | Outpatient (CLI) | payer MEDICARE, OTHER | END | disposition home or self-care (01) | LOC: LABWHC1 08:16 | PROVIDERS: ATTEND Surgery Plastic and Reconstructive Surgery | DX: Z71.51 Drug abuse counseling and surveillance of drug abuser (principal) | CPT/HCPCS: 80307; G0480; G0482; 80323 ==

== ENCOUNTER → 2024-02-20 | Outpatient (CLI) | payer MEDICARE, OTHER ==
[2024-02-20 16:11] LABS: INR 0.9 (<1.2); Prothrombin Time 10.3 sec (10.0-12.5)
[2024-02-20 16:21] LABS: Partial Thromboplastin Time 20.7 sec (22.0-30.0)
[2024-02-20 18:11] LABS: HCT 38.8 % (37.2-46.3); MCH 26.1 pg (27.0-32.0); MCHC 30.9 g/dL (32.0-37.0); MCV 84.3 FL (80.0-97.0); Mean Platelet Volume 10.9 FL (9.5-12.2); NRBC Per 100 WBC 0 X 10*3/uL (0.00-0.01); Platelet Count 350 X 10*3/uL (140-440); RDW 15.1 % (11.5-14.5); WBC 12.67 X 10*3/uL (4.50-10.00)
[2024-02-20 19:13] LABS: Prealbumin 22.2 mg/dL (18.0-42.0)
[2024-02-20 19:41] LABS: % Iron Saturation 10.61 (12.00-45.00); ALT 20 U/L (8-44); AST 22 U/L (13-35); Albumin 4.1 g/dL (3.8-4.9); Albumin/Globulin Ratio 1.58 Ratio (1.60-3.17); Alkaline Phosphatase 128 U/L (41-126); BUN/Creat Ratio 18.77 Ratio (12.00-20.00); Blood Urea Nitrogen 24.4 mg/dL (9.0-27.0); Calcium 9.7 mg/dL (8.7-10.3); Carbon Dioxide 23.7 mmol/L (21.6-31.8); Chloride 103 mmol/L (96-109); Chol/HDL Ratio 3.56 Ratio; Ferritin 25.4 ng/mL (10.0-291.0); Globulin 2.6 g/dL (1.6-3.3); Glucose 116 mg/dL (70-110); Iron 40 UG/DL (50-170); LDL Cholesterol,Calculated 129.9 mg/dL (0.0-131.0); Magnesium 2.1 mg/dL (1.5-2.4); Phosphorus 3.3 mg/dL (2.4-5.1); Potassium 4.6 mmol/L (3.5-5.5); Sodium 141 mmol/L (135-145); Total Bilirubin 0.3 mg/dL (0.3-1.2); Total Iron Binding Capacity 377 UG/DL (228-460); Total Protein 6.7 g/dL (6.2-8.2)
[2024-02-21 10:37] LABS: Zinc, Serum 87 ug/dL (60-130)
[2024-02-22 12:50] LABS: Vitamin A 59 ug/dL (38-106)
[2024-02-25 06:30] LABS: Anabasine Urine <2.0 ng/mL (<2.0)
[2024-02-25 07:50] LABS: Selenium 112 mcg/L (63-160)
[2024-02-26 07:40] LABS: Vit B1(Thiamine) 84 ug/L (38-122)
== END | disposition home or self-care (01) ==
LOC: LABPAT 14:39
PROVIDERS: ATTEND Surgery Plastic and Reconstructive Surgery
DX: E66.01 Morbid (severe) obesity due to excess calories (principal); E89.1 Postprocedural hypoinsulinemia; D50.8 Other iron deficiency anemias; K91.2 Postsurgical malabsorption, not elsewhere classified; E44.0 Moderate protein-calorie malnutrition; E45 Retarded development following protein-calorie malnutrition; E55.9 Vitamin D deficiency, unspecified; K74.1 Hepatic sclerosis; N19 Unspecified kidney failure; T56.894A Toxic effect of other metals, undetermined, initial encounter; K50.90 Crohn's disease, unspecified, without complications
CPT/HCPCS: 84255; 84134; 84425; 80061; 80053; 82607; 82728; 82525; 82746; 83540; 83550; 83735; 84100; 84443; 84590; 84630; 85027; 85610; 85730; 82306; 83970; 83036; 93005; G0480; 80323

== ENCOUNTER → 2024-02-20 | Outpatient (CLI) | payer MEDICARE, OTHER ==
--- NOTE | 2024-02-20 14:25 | P.BASOAP ---
Subjective Progress Note Date: 02/20/24 DATE OF SERVICE: 02/20/24 CHIEF COMPLAINT: Status post gastric bypass and panniculitis HISTORY OF PRESENT ILLNESS: Mar Del Castillo (White/Katelin) is a 68-year-old female status post gastric bypass 2012. She is 11 years out. She has been lost to follow-up for 2 years. She comes in with worsening symptoms from her pannus including lower back pain, troubles with grooming including irritation and rash underneath her pannus. Triggers for new change in her medical condition including diagnosis of rheumatoid arthritis. She has been on high-dose steroids. She has been exposed to secondhand nicotine with elevated nicotine levels. Due to her moderate weight, she is also investigating revision of her gastric bypass to ascertain more weight loss. She has maintained over 200+ pound weight loss. Her back and knees are bothering from her pannus. She presents for assessment of panniculectomy. Patient has been treating her symptoms over 2 to 4 years including assessment with neurologist, orthopedic providers and language assistant. She has been using medicated creams and prescribed creams for over 2 to 3 years. At height of 5 feet 7.25 inches, her ideal body weight is 158 pounds. She comes in 360 pounds from 2 years ago. Her highest weight was 610 pounds. She has lost 250 pounds lifetime. Her body mass index highest was 95.0. Today her BMI is 56.4. Lifetime percent excess weight loss of 55%. She is 202 pounds overweight. PAST MEDICAL HISTORY: 1. Morbid obesity due to excess calories 2. Body mass index of 95.0, initial 3. Osteoarthritis of the knees. 4. Rheumatoid arthritis 5. Osteoarthritis of the lower back. 6. Hypertensive heart disease. 7. Chronic pain syndrome 8. Gastroesophageal reflux disease 9. Chronic panniculitis 10. Asthma 11. Chronic obstructive pulmonary disorder 12. Obstructive sleep apnea 13. Anxiety disorder 14. Congestive heart failure 15. Panniculitis PAST SURGICAL HISTORY: 1. Gastric bypass 2. Bilateral total knee replacement 3. Tubal ligation 4. Uterine ablation 5. D&C HOME MEDICATIONS: Home Medications Medication Instructions Recorded Confirmed Albuterol Sulfate [Proair Hfa] 2 puff INHALATION Q6HR PRN 02/04/15 12/26/22 Cyanocobalamin [Vitamin B-12] 1,000 mcg PO DAILY 02/04/15 12/26/22 Multivitamins, Thera [Multivitamin 1 each PO DAILY 02/04/15 12/26/22 (formulary)] Ergocalciferol [Vitamin D2 50,000 unit PO MADRIGAL 11/04/15 12/26/22 (DRISDOL)] Nystatin [Nystop] 1 applic TOPICAL DAILY PRN 01/02/17 12/26/22 amLODIPine [Norvasc] 10 mg PO QAM 01/02/17 12/26/22 Baclofen 10 mg PO HS 04/03/18 12/26/22 Budesonide/Formoterol Fumarate 1 puff INHALATION BID 04/03/18 12/26/22 [Symbicort 80-4.5 Mcg Inhaler] Clindamycin Gel [Cleocin T 1% Gel] 1 applicator TOPICAL BID PRN 04/03/18 12/26/22 Dimethicone/Zinc Oxide [Inzo Zinc 1 applic TOPICAL BID PRN 04/03/18 12/26/22 Oxide Barrier Cream] Magnesium Oxide 250 mg PO DAILY 04/03/18 12/26/22 Irbesartan/Hydrochlorothiazide 1 each PO QAM 04/02/19 12/26/22 [Irbesartan-Hctz 300-12.5 mg Tb] Zinc 50 mg PO DAILY 02/01/21 12/26/22 Calcium Citrate 1,200 mg PO DAILY 05/18/21 12/26/22 Spironolactone 25 mg PO DAILY 03/15/22 12/26/22 oxyCODONE-APAP 10-325MG [Percocet 1 tab PO Q6HR PRN 03/15/22 12/26/22 10-325 mg] Previous Rx's Medication Instructions Recorded Nystatin 100,000 Unit/gm Powd 1 applic TOPICAL BID #60 powder 02/09/21 [Mycostatin Powder] Simethicone [Gas-X] 125 mg PO AC-TID PRN #20 capsule 02/21/21 Clindamycin Topical Soln 1 applic TOPICAL BID #30 ml 12/26/22 [Cleocin-T Topical Soln] Cyclobenzaprine [Flexeril] 10 mg PO TID PRN #15 tab 01/09/23 ALLERGIES: Allergies Allergy/AdvReac Type Severity Reaction Status Date / Time nickel Allergy Unknown Rash/Hives Verified 12/26/22 08:25 SOCIAL HISTORY: No past tobacco use. Has secondary tobacco exposure. FAMILY HISTORY: No family history of ulcerative colitis disease or Crohn's disease. Family history of morbid obesity. No lupus in the family. No reports of stomach or esophageal cancer. REVIEW OF ORGAN SYSTEMS: CONSTITUTIONAL: At height of 5 feet 7.25 inches, her ideal body weight is 158 pounds. Her highest weight was 610 pounds. Her body mass index highest was 95.0. HEENT: Denies any active troubles with vision or hearing. ENDOCRINE: No diabetes. No hypothyroidism. CARDIOVASCULAR: No reports of palpitations or heart attacks or chest pain. Has heart murmur RESPIRATORY: Has daytime somnolence. Has asthma. GI: Denies any bright red blood per rectum. No diarrhea. No constipation. MUSCULOSKELETAL: Has lower back pain and joint pain. Has osteoarthritis of the knees. History of bilateral lower extremity edema. Has rheumatoid arthritis. Ambulates with walker. NEURO: No headaches. No seizure disorders. Has chronic pain. PSYCH: No depression. No suicidal ideation. Has anxiety. RHEUMATOLOGIC: No lupus. Has rheumatoid arthritis. HEMATOLOGIC: Denies any abnormal bleeding or bruising. No personal history of DVTs. SKIN: Has chronic panniculitis. No skin cancer. PHYSICAL EXAM: VITAL SIGNS: Height 5 foot 7.25 inches, weight 360 pounds. BMI 56.0 Vital Signs Temp 98.1 F 02/20/24 14:04 Pulse 111 H 02/20/24 14:04 Resp BP 139/73 02/20/24 14:04 Pulse Ox FiO2 Intake & Output 02/20/24 02/20/24 02/21/24 06:59 18:59 06:59 Weight 163.293 kg GENERAL: Well-developed in no acute distress. HEENT: No scleral icterus. Extraocular movements grossly intact. Hears conversational speech. No nasal drainage. NECK: Supple without lymphadenopathy. CHEST: Nonlabored respirations with equal bilateral excursions. CARDIOVASCULAR: Regular rate and regular rhythm. Distal 2+ pulses. ABDOMEN: Incisions intact. No infection. Pannus grade 4 panniculosis. Pannus over 40 pounds. MUSCULOSKELETAL: No clubbing, cyanosis. Ambulates with walker. NEURO: No focal or lateralizing signs. Cranial nerves 2 through 12 grossly within normal limits. PSYCH: Appropriate affect. Alert and oriented to person, place and time. SKIN: Good skin turgor. Well perfused. ASSESSMENT: 1. Morbid obesity due to excess calories 2. Body mass index of 95.0, initial to 56.0 3. Osteoarthritis of the knees. 4. Rheumatoid arthritis 5. Osteoarthritis of the lower back. 6. Hypertensive heart disease. 7. Chronic pain syndrome 8. Gastroesophageal reflux disease 9. Chronic panniculitis 10. Asthma 11. Chronic obstructive pulmonary disorder 12. Obstructive sleep apnea 13. Anxiety disorder 14. Congestive heart failure 15. Hiatal hernia 16. Cholecystitis 17. Secondhand tobacco abuse exposure PLAN: 1. Recommend panniculectomy for large pannus and chronic panniculitis with concomittant severe lower back pain and uncontrolled symptoms despite systemic and local treatment. Anticipated resection over 40+ pounds which is high risk. Panniculectomy should correct her functional deficits. 2. Recommended updated follow-up with language assistant due to chronic symptoms. 3. Will need correction of all vitamin deficiencies prior to panniculectomy. 4. Recommend cardiac clearance for her hypertensive heart disease 5. Recommend bariatric labs and correction 6. Due to her multiple comorbidities, she is elevated risk for surgical intervention. 7. Her weight loss has been stable with maintained weight loss over 200+ pounds. 8. Revision of her gastric bypass to duodenal switch is extremely high risk especially with her present comorbidities. Objective - Vital Signs Vital signs: Vital Signs Temp 98.1 F 02/20/24 14:04 Pulse 111 H 02/20/24 14:04 Resp BP 139/73 02/20/24 14:04 Pulse Ox FiO2 Intake & Output 02/19/24 02/20/24 02/20/24 18:59 06:59 18:59 Weight 163.293 kg Assessment/Plan Plan: Date: 02/20/24 Initial Weight: 160.163 kg Initial BMI: 55.3 Current Weight: 163.293 kg Current BMI: 56.3 Type of Surgery: Total Volume in Band: Previous Volume: Volume Removed: Volume Added: Band Size:
[2024-02-20 14:42] VITALS: BP 139/73; PULSE 111; TEMP 98.1; BMI 56.3
== END ==
LOC: BARWHC3 02-13 14:00
PROVIDERS: ATTEND Surgery Plastic and Reconstructive Surgery
DX: E66.01 Morbid (severe) obesity due to excess calories (principal); M17.0 Bilateral primary osteoarthritis of knee; M06.9 Rheumatoid arthritis, unspecified; G89.4 Chronic pain syndrome; M79.3 Panniculitis, unspecified; J44.89 Other specified chronic obstructive pulmonary disease; I11.0 Hypertensive heart disease with heart failure; I50.9 Heart failure, unspecified; K21.9 Gastro-esophageal reflux disease without esophagitis; M47.816 Spondylosis without myelopathy or radiculopathy, lumbar region; G47.33 Obstructive sleep apnea (adult) (pediatric); F41.9 Anxiety disorder, unspecified; K44.9 Diaphragmatic hernia without obstruction or gangrene; K81.9 Cholecystitis, unspecified; Z77.22 Contact with and (suspected) exposure to environmental tobacco smoke (acute) (chronic); Z91.09 Other allergy status, other than to drugs and biological substances; Z79.899 Other long term (current) drug therapy; Z79.51 Long term (current) use of inhaled steroids; Z68.43 Body mass index [BMI] 50.0-59.9, adult; Z98.84 Bariatric surgery status
CPT/HCPCS: 99211

== ENCOUNTER 2024-03-01 11:24 | Emergency (ER) | payer MEDICARE, OTHER ==
[2024-03-01 11:49] VITALS: PULSE 87
--- NOTE | 2024-03-01 12:41 | ED ---
General Adult HPI - General Chief complaint: Skin/Abscess/Foreign Body Stated complaint: L Foot Gout Time Seen by Provider: 03/01/24 11:46 Source: patient, RN notes reviewed Mode of arrival: ambulatory Limitations: no limitations - History of Present Illness Initial comments: 69 year old female presents to the emergency department for evaluation of left foot pain. Patient states that she has a history of gout and this is what she has experienced in the past. She notes that this flared up about 2 days ago. She reports pain at the 1st digit of the left toe. She notes that she had recently ate fish and more sugar than usual and thinks this may have flared her gout. Patient is also reporting an abscess on her buttock. She does have a history of this as well. She admits to chills. Denies renal and hepatic impairment. - Related Data Home Medications Medication Instructions Recorded Confirmed Albuterol Sulfate [Proair Hfa] 2 puff INHALATION Q6HR PRN 02/04/15 02/22/24 Cyanocobalamin [Vitamin B-12] 1,000 mcg PO DAILY 02/04/15 02/22/24 Multivitamins, Thera [Multivitamin 1 each PO DAILY 02/04/15 02/22/24 (formulary)] Ergocalciferol [Vitamin D2 50,000 unit PO MADRIGAL 11/04/15 02/22/24 (DRISDOL)] Nystatin [Nystop] 1 applic TOPICAL DAILY PRN 01/02/17 02/22/24 amLODIPine [Norvasc] 10 mg PO QAM 01/02/17 02/22/24 Baclofen 10 mg PO HS 04/03/18 02/22/24 Budesonide/Formoterol Fumarate 1 puff INHALATION BID 04/03/18 02/22/24 [Symbicort 80-4.5 Mcg Inhaler] Clindamycin Gel [Cleocin T 1% Gel] 1 applicator TOPICAL BID PRN 04/03/18 02/22/24 Dimethicone/Zinc Oxide [Inzo Zinc 1 applic TOPICAL BID PRN 04/03/18 02/22/24 Oxide Barrier Cream] Magnesium Oxide 250 mg PO DAILY 04/03/18 02/22/24 Irbesartan/Hydrochlorothiazide 1 each PO QAM 04/02/19 02/22/24 [Irbesartan-Hctz 300-12.5 mg Tb] Zinc 50 mg PO DAILY 02/01/21 02/22/24 Calcium Citrate 1,200 mg PO DAILY 05/18/21 02/22/24 Spironolactone 25 mg PO DAILY 03/15/22 02/22/24 oxyCODONE-APAP 10-325MG [Percocet 1 tab PO Q6HR PRN 03/15/22 02/22/24 10-325 mg] Previous Rx's Medication Instructions Recorded Nystatin 100,000 Unit/gm Powd 1 applic TOPICAL BID #60 powder 02/09/21 [Mycostatin Powder] Simethicone [Gas-X] 125 mg PO AC-TID PRN #20 capsule 02/21/21 Clindamycin Topical Soln 1 applic TOPICAL BID #30 ml 12/26/22 [Cleocin-T Topical Soln] Cyclobenzaprine [Flexeril] 10 mg PO TID PRN #15 tab 01/09/23 Cephalexin [Keflex] 500 mg PO Q6HR #40 cap 03/01/24 Sulfamethox-Tmp 800-160Mg [Bactrim 1 each PO Q12HR #20 tab 03/01/24 Ds] predniSONE [Deltasone] 40 mg PO DAILY #10 tab 03/01/24 Allergies Allergy/AdvReac Type Severity Reaction Status Date / Time nickel Allergy Unknown Rash/Hives Verified 12/26/22 08:25 Review of Systems ROS Statement: Those systems with pertinent positive or pertinent negative responses have been documented in the HPI. ROS Other: All systems not noted in ROS Statement are negative. Past Medical History Past Medical History: Asthma, GERD/Reflux, GI Bleed, Hypertension, Rheumatoid Arthritis (RA), Sleep Apnea/CPAP/BIPAP Additional Past Medical History / Comment(s): HEART MURMUR, ANEMIA, hiatal hernia, and chronic back pain, does not use CPAP. 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 History of Any Multi-Drug Resistant Organisms: None Reported Past Surgical History: Bariatric Surgery, Cholecystectomy, Joint Replacement, Tonsillectomy, Tubal Ligation, Uterine Ablation Additional Past Surgical History / Comment(s): BILATERAL TOTAL KNEE REPLACEMENTS, D&C, upper endoscopy with esophageal dilatation X2, gastric bypass. Colonoscopy 2020. Past Anesthesia/Blood Transfusion Reactions: Previous Problems w/ Anesthesia, Family History of Problems w/ Anesthesia Additional Past Anesthesia/Blood Transfusion Reaction / Comment(s): Pt states awoke during surgery attributed to Sleep Apnea. Past Psychological History: Anxiety Smoking Status: Never smoker, Second hand smoke exposure Past Alcohol Use History: Rare Past Drug Use History: None Reported - Past Family History Mother Family Medical History: Diabetes Mellitus Brother(s) Family Medical History: Seizure Disorder Additional Family Medical History / Comment(s): from seizure in 2020. Father Family Medical History: Cancer Additional Family Medical History / Comment(s): LIVER CANCER, paternal aunt had breast cancer and an uncle had colon cancer. General Exam Limitations: no limitations General appearance: alert, in no apparent distress Head exam: Present: atraumatic, normocephalic, normal inspection Eye exam: Present: normal appearance, PERRL, EOMI. Absent: scleral icterus, conjunctival injection, periorbital swelling ENT exam: Present: normal exam, mucous membranes moist Respiratory exam: Present: normal lung sounds bilaterally. Absent: respiratory distress, wheezes, rales, rhonchi, stridor Cardiovascular Exam: Present: regular rate, normal rhythm, normal heart sounds. Absent: systolic murmur, diastolic murmur, rubs, gallop, clicks Extremities exam: Present: normal inspection, tenderness (MCP joint of both left and right feet), normal capillary refill, other (DP and PT pulses 2+ ). Absent: full ROM, pedal edema, joint swelling, calf tenderness Neurological exam: Present: alert, oriented X3 Psychiatric exam: Present: normal affect, normal mood Skin exam: Present: warm, dry, other (draining abscess to right buttock). Absent: intact Course Vital Signs 03/01/24 03/01/24 11:39 13:10 Temperature 98.8 F 98.1 F Pulse Rate 87 87 Respiratory 16 18 Rate Blood Pressure 148/78 141/86 O2 Sat by Pulse 99 99 Oximetry Medical Decision Making - Medical Decision Making Was pt. sent in by a medical professional or institution (, [facility], STRUCTURAL TEST ENGINEER, urgent care, hospital, or longterm...) When possible be specific @ -No Did you speak to anyone other than the patient for history (EMS, parent, family, police, friend...)? What history was obtained from this source @ -No Did you review nursing and triage notes (agree or disagree)? Why? @ -I reviewed and agree with nursing and triage notes Were old charts reviewed (outside hosp., previous admission, EMS record, old EKG, old radiological studies, urgent care reports/EKG's, longterm records)? Report findings @ -No old charts were reviewed Differential Diagnosis (chest pain, altered mental status, abdominal pain women, abdominal pain men, vaginal bleeding, weakness, fever, dyspnea, syncope, headache, dizziness, GI bleed, back pain, seizure, CVA, palpatations, mental health, musculoskeletal)? @ -Differential Musculoskeletal Muscular strain, contusion, ligament sprain, fracture, arthritis, septic arthritis, bursitis, cellulitis, muscle spasm, nerve compression, DVT, arterial occlusion, herpes zoster, electrolyte abnormality, tumor.... This is not meant to be in all inclusive list EKG interpreted by me (3pts min.). @ -None X-rays interpreted by me (1pt min.). @ -None done CT interpreted by me (1pt min.). @ -None done U/S interpreted by me (1pt. min.). @ -None done What testing was considered but not performed or refused? (CT, X-rays, U/S, labs)? Why? @ -None What meds were considered but not given or refused? Why? @ -None Did you discuss the management of the patient with other professionals (professionals i.e. , PA, STRUCTURAL TEST ENGINEER, lab, RT, psych nurse, social worker health services, marketing strategy manager, teacher, disbursing officer, case monitor)? Give summary @ -No Was smoking cessation discussed for >3mins.? @ -No Was critical care preformed (if so, how long)? @ -No Were there social determinants of health that impacted care today? How? (Homelessness, low income, unemployed, alcoholism, drug addiction, transportation, low edu. Level, literacy, decrease access to med. care, usp, rehab)? @ -No Was there de-escalation of care discussed even if they declined (Discuss DNR or withdrawal of care, Hospice)? DNR status @ -No What co-morbidities impacted this encounter? (DM, HTN, Smoking, COPD, CAD, Cancer, CVA, ARF, Chemo, Hep., AIDS, mental health diagnosis, sleep apnea, morbid obesity)? @ -None Was patient admitted / discharged? Hospital course, mention meds given and route, prescriptions, significant lab abnormalities, going to OR and other pertinent info. @ -Discharge. Patient presented to the emergency department for evaluation of left foot gout and abscess on her buttock. Patient has clinical presentation of gout due to diet. She also has an abscess that is draining on her buttock. She has not been on medications for either of these. Patient will be started on short course of steroids along with antibiotics. Strict return precautions discussed. Patient is understanding agreeable plan. Patient stable at time of discharge. Case discussed with Dr. Starr. Undiagnosed new problem with uncertain prognosis? @ -No Drug Therapy requiring intensive monitoring for toxicity (Heparin, Nitro, Insulin, Cardizem)? @ -No Were any procedures done? @ -No Diagnosis/symptom? @ -Gout, abscess of buttock Acute, or Chronic, or Acute on Chronic? @ -d acute Uncomplicated (without systemic symptoms) or Complicated (systemic symptoms)? @ -Uncomplicated Side effects of treatment? @ -No Exacerbation, Progression, or Severe Exacerbation? @ -No Poses a threat to life or bodily function? How? (Chest pain, [place], [place], pneumonia, PE, COPD, DKA, ARF, appy, cholecystitis, CVA, Diverticulitis, Homicidal, Suicidal, threat to staff... and all critical care pts) @ -No Disposition Clinical Impression: Gout, Abscess Disposition: HOME SELF-CARE Condition: Stable Instructions (If sedation given, give patient instructions): Low Purine Diet (ED), Gout (ED), Abscess (ED) Prescriptions: Sulfamethox-Tmp 800-160Mg [Bactrim Ds] 1 each PO Q12HR #20 tab predniSONE [Deltasone] 40 mg PO DAILY #10 tab Cephalexin [Keflex] 500 mg PO Q6HR #40 cap Is patient prescribed a controlled substance at d/c from ED?: No Referrals: Sedrick Mcneil DO [Primary Care Provider] - 1-2 days
[2024-03-01] MEDS: KETOROLAC 15 MG/ML 1 ML VIAL IM STA (12:44)
[2024-03-01] MEDS: methylPREDNISolone SOD SUCCI 125 MG/2 ML VIAL IM ONE (12:45)
[2024-03-01 13:46] VITALS: BP 141/86; RESP 18; TEMP 98.1
== END 2024-03-01 13:10 | disposition home or self-care (01) ==
LOC: EC 11:24
DX: M10.072 Idiopathic gout, left ankle and foot (principal); L02.31 Cutaneous abscess of buttock; Z88.8 Allergy status to other drugs, medicaments and biological substances
CPT/HCPCS: 99283; 96372 ×2; J1885; J2919

== ENCOUNTER → 2024-05-07 | Outpatient (CLI) | payer MEDICARE, OTHER ==
[2024-05-07 18:28] LABS: Basophils # (A) 0.07 X 10*3/uL (0.00-0.10); Basophils % (A) 0.8 %; Eosinophils # (A) 0.15 X 10*3/uL (0.04-0.35); Eosinophils % (A) 1.8 %; HCT 37.5 % (37.2-46.3); HGB 11.5 g/dL (12.0-15.0); Lymphocytes % (A) 29.3 %; MCH 26.8 pg (27.0-32.0); MCHC 30.7 g/dL (32.0-37.0); MCV 87.4 FL (80.0-97.0); Mean Platelet Volume 10.7 FL (9.5-12.2); Monocytes # (A) 0.66 X 10*3/uL (0.20-1.00); Monocytes % (A) 7.7 %; NRBC Per 100 WBC 0 X 10*3/uL (0.00-0.01); Neutrophils # (A) 5.14 X 10*3/uL (1.80-7.70); Neutrophils % (A) 60.2 %; Platelet Count 275 X 10*3/uL (140-440); RBC 4.29 X 10*6/uL (4.10-5.20); RDW 15.9 % (11.5-14.5); WBC 8.54 X 10*3/uL (4.50-10.00)
[2024-05-07 20:25] LABS: ALT 15 U/L (8-44); AST 21 U/L (13-35); Albumin 3.9 g/dL (3.8-4.9); Alkaline Phosphatase 114 U/L (41-126); BUN/Creat Ratio 25.17 Ratio (12.00-20.00); Blood Urea Nitrogen 30.2 mg/dL (9.0-27.0); Calcium 9.5 mg/dL (8.7-10.3); Carbon Dioxide 24.4 mmol/L (21.6-31.8); Chloride 105 mmol/L (96-109); Globulin 2.3 g/dL (1.6-3.3); Glucose 95 mg/dL (70-110); Potassium 4.5 mmol/L (3.5-5.5); Sodium 140 mmol/L (135-145); Total Bilirubin 0.3 mg/dL (0.3-1.2); Total Protein 6.2 g/dL (6.2-8.2)
== END | disposition home or self-care (01) ==
LOC: LABWHC1 12:11
PROVIDERS: ATTEND Surgery Plastic and Reconstructive Surgery
DX: Z01.812 Encounter for preprocedural laboratory examination (principal)
CPT/HCPCS: 36415; 80053; 85025; 86850; 86900; 86901

== ENCOUNTER 2024-05-12 12:10 | Inpatient (IN) | payer MEDICARE, OTHER ==
--- NOTE | 2024-05-12 08:15 | P.GSHP ---
History of Present Illness H&P Date: 05/12/24 CHIEF COMPLAINT: Status post gastric bypass and panniculitis HISTORY OF PRESENT ILLNESS: Mar Del Castillo (White/Katelin) is a 68-year-old female status post gastric bypass 2012. She is 11 years out. She has been lost to follow-up for 2 years. She comes in with worsening symptoms from her pannus including lower back pain, troubles with grooming including irritation and rash underneath her pannus. She has maintained over 200+ pound weight loss. Her back and knees are bothering from her pannus. She presents for assessment of panniculectomy. Patient has been treating her symptoms over 2 to 4 years including assessment with neurologist, orthopedic providers and trust manager. She has been using medicated creams and prescribed creams for over 2 to 3 years. At height of 5 feet 7.25 inches, her ideal body weight is 158 pounds. She comes in 360 pounds from 2 years ago. Her highest weight was 610 pounds. She has lost 250 pounds lifetime. Her body mass index highest was 95.0. Today her BMI is 56.4. Lifetime percent excess weight loss of 55%. She is 202 pounds overweight. PAST MEDICAL HISTORY: 1. Morbid obesity due to excess calories 2. Body mass index of 95.0, initial 3. Osteoarthritis of the knees. 4. Rheumatoid arthritis 5. Osteoarthritis of the lower back. 6. Hypertensive heart disease. 7. Chronic pain syndrome 8. Gastroesophageal reflux disease 9. Chronic panniculitis 10. Asthma 11. Chronic obstructive pulmonary disorder 12. Obstructive sleep apnea 13. Anxiety disorder 14. Congestive heart failure 15. Panniculitis PAST SURGICAL HISTORY: 1. Gastric bypass 2. Bilateral total knee replacement 3. Tubal ligation 4. Uterine ablation 5. D&C HOME MEDICATIONS: Home Medications Medication Instructions Recorded Confirmed Albuterol Sulfate [Proair Hfa] 2 puff INHALATION Q6HR PRN 02/04/15 12/26/22 Cyanocobalamin [Vitamin B-12] 1,000 mcg PO DAILY 02/04/15 12/26/22 Multivitamins, Thera [Multivitamin 1 each PO DAILY 02/04/15 12/26/22 (formulary)] Ergocalciferol [Vitamin D2 50,000 unit PO MADRIGAL 11/04/15 12/26/22 (DRISDOL)] Nystatin [Nystop] 1 applic TOPICAL DAILY PRN 01/02/17 12/26/22 amLODIPine [Norvasc] 10 mg PO QAM 01/02/17 12/26/22 Baclofen 10 mg PO HS 04/03/18 12/26/22 Budesonide/Formoterol Fumarate 1 puff INHALATION BID 04/03/18 12/26/22 [Symbicort 80-4.5 Mcg Inhaler] Clindamycin Gel [Cleocin T 1% Gel] 1 applicator TOPICAL BID PRN 04/03/18 12/26/22 Dimethicone/Zinc Oxide [Inzo Zinc 1 applic TOPICAL BID PRN 04/03/18 12/26/22 Oxide Barrier Cream] Magnesium Oxide 250 mg PO DAILY 04/03/18 12/26/22 Irbesartan/Hydrochlorothiazide 1 each PO QAM 04/02/19 12/26/22 [Irbesartan-Hctz 300-12.5 mg Tb] Zinc 50 mg PO DAILY 02/01/21 12/26/22 Calcium Citrate 1,200 mg PO DAILY 05/18/21 12/26/22 Spironolactone 25 mg PO DAILY 03/15/22 12/26/22 oxyCODONE-APAP 10-325MG [Percocet 1 tab PO Q6HR PRN 03/15/22 12/26/22 10-325 mg] Previous Rx's Medication Instructions Recorded Nystatin 100,000 Unit/gm Powd 1 applic TOPICAL BID #60 powder 02/09/21 [Mycostatin Powder] Simethicone [Gas-X] 125 mg PO AC-TID PRN #20 capsule 02/21/21 Clindamycin Topical Soln 1 applic TOPICAL BID #30 ml 12/26/22 [Cleocin-T Topical Soln] Cyclobenzaprine [Flexeril] 10 mg PO TID PRN #15 tab 01/09/23 ALLERGIES: Allergies Allergy/AdvReac Type Severity Reaction Status Date / Time nickel Allergy Unknown Rash/Hives Verified 12/26/22 08:25 SOCIAL HISTORY: No past tobacco use. Has secondary tobacco exposure. FAMILY HISTORY: No family history of ulcerative colitis disease or Crohn's disease. Family history of morbid obesity. No lupus in the family. No reports of stomach or esophageal cancer. REVIEW OF ORGAN SYSTEMS: CONSTITUTIONAL: At height of 5 feet 7.25 inches, her ideal body weight is 158 pounds. Her highest weight was 610 pounds. Her body mass index highest was 95.0. HEENT: Denies any active troubles with vision or hearing. ENDOCRINE: No diabetes. No hypothyroidism. CARDIOVASCULAR: No reports of palpitations or heart attacks or chest pain. Has heart murmur RESPIRATORY: Has daytime somnolence. Has asthma. GI: Denies any bright red blood per rectum. No diarrhea. No constipation. MUSCULOSKELETAL: Has lower back pain and joint pain. Has osteoarthritis of the knees. History of bilateral lower extremity edema. Has rheumatoid arthritis. Ambulates with walker. NEURO: No headaches. No seizure disorders. Has chronic pain. PSYCH: No depression. No suicidal ideation. Has anxiety. RHEUMATOLOGIC: No lupus. Has rheumatoid arthritis. HEMATOLOGIC: Denies any abnormal bleeding or bruising. No personal history of DVTs. SKIN: Has chronic panniculitis. No skin cancer. PHYSICAL EXAM: VITAL SIGNS: Height 5 foot 7.25 inches, weight 360 pounds. BMI 56.0 GENERAL: Well-developed in no acute distress. HEENT: No scleral icterus. Extraocular movements grossly intact. Hears conversational speech. No nasal drainage. NECK: Supple without lymphadenopathy. CHEST: Nonlabored respirations with equal bilateral excursions. CARDIOVASCULAR: Regular rate and regular rhythm. Distal 2+ pulses. ABDOMEN: Incisions intact. No infection. Pannus grade 4 panniculosis. Pannus over 40 pounds. MUSCULOSKELETAL: No clubbing, cyanosis. Ambulates with walker. NEURO: No focal or lateralizing signs. Cranial nerves 2 through 12 grossly within normal limits. PSYCH: Appropriate affect. Alert and oriented to person, place and time. SKIN: Good skin turgor. Well perfused. ASSESSMENT: 1. Morbid obesity due to excess calories 2. Body mass index of 95.0, initial to 56.0 3. Osteoarthritis of the knees. 4. Rheumatoid arthritis 5. Osteoarthritis of the lower back. 6. Hypertensive heart disease. 7. Chronic pain syndrome 8. Gastroesophageal reflux disease 9. Chronic panniculitis 10. Asthma 11. Chronic obstructive pulmonary disorder 12. Obstructive sleep apnea 13. Anxiety disorder 14. Congestive heart failure 15. Hiatal hernia 16. Cholecystitis 17. Secondhand tobacco abuse exposure PLAN: 1. Recommend panniculectomy for large pannus and chronic panniculitis with concomittant severe lower back pain and uncontrolled symptoms despite systemic and local treatment. Anticipated resection over 40+ pounds which is high risk. Panniculectomy should correct her functional deficits. 2. Inpatient hospitalization advised due to the severity of her comorbidities and anticipated resection. 3. Patient is elevated risk for complications due to extent of resection and comorbidities. Past Medical History Past Medical History: Asthma, GERD/Reflux, GI Bleed, Hypertension, Rheumatoid Arthritis (RA), Sleep Apnea/CPAP/BIPAP Additional Past Medical History / Comment(s): HEART MURMUR, hx ANEMIA, hiatal hernia, and chronic back pain, uses CPAP. rhuematic fever as a child. gout History of Any Multi-Drug Resistant Organisms: None Reported Past Surgical History: Bariatric Surgery, Cholecystectomy, Joint Replacement, Tonsillectomy, Tubal Ligation, Uterine Ablation Additional Past Surgical History / Comment(s): BILATERAL TOTAL KNEE REPLACEMENTS, D&C, upper endoscopy with esophageal dilatation X2, gastric bypass. Colonoscopy 2020. Past Anesthesia/Blood Transfusion Reactions: Previous Problems w/ Anesthesia Additional Past Anesthesia/Blood Transfusion Reaction / Comment(s): Pt states awoke during surgery attributed to Sleep Apnea. Smoking Status: Never smoker, Second hand smoke exposure - Past Family History Mother Family Medical History: Diabetes Mellitus Brother(s) Family Medical History: Seizure Disorder Additional Family Medical History / Comment(s): from seizure in 2020. Father Family Medical History: Cancer Additional Family Medical History / Comment(s): LIVER CANCER, paternal aunt had breast cancer and an uncle had colon cancer. Son(s) Family Medical History: Seizure Disorder Additional Family Medical History / Comment(s): from seizure Sister(s) Family Medical History: Deep Vein Thrombosis (DVT) Medications and Allergies Home Medications Medication Instructions Recorded Confirmed Type Albuterol Sulfate [Proair Hfa] 2 puff INHALATION Q6HR PRN 02/04/15 05/07/24 History Cyanocobalamin [Vitamin B-12] 1,000 mcg PO DAILY 02/04/15 05/07/24 History Multivitamins, Thera [Multivitamin 1 each PO DAILY 02/04/15 05/07/24 History (formulary)] Ergocalciferol [Vitamin D2 50,000 unit PO MADRIGAL 11/04/15 05/07/24 History (DRISDOL)] Nystatin [Nystop] 1 applic TOPICAL DAILY PRN 01/02/17 05/07/24 History amLODIPine [Norvasc] 10 mg PO QAM 01/02/17 05/07/24 History Budesonide/Formoterol Fumarate 1 puff INHALATION BID PRN 04/03/18 05/07/24 History [Symbicort 80-4.5 Mcg Inhaler] Clindamycin Gel [Cleocin T 1% Gel] 1 applicator TOPICAL BID PRN 04/03/18 05/07/24 History Dimethicone/Zinc Oxide [Inzo Zinc 1 applic TOPICAL BID PRN 04/03/18 05/07/24 History Oxide Barrier Cream] Magnesium Oxide 250 mg PO DAILY 04/03/18 05/07/24 History Irbesartan/Hydrochlorothiazide 1 each PO QAM 04/02/19 05/07/24 History [Irbesartan-Hctz 300-12.5 mg Tb] Zinc 50 mg PO DAILY 02/01/21 05/07/24 History Nystatin 100,000 Unit/gm Powd 1 applic TOPICAL BID #60 powder 02/09/21 05/07/24 Rx [Mycostatin Powder] Simethicone [Gas-X] 125 mg PO AC-TID PRN #20 capsule 02/21/21 05/07/24 Rx Calcium Citrate 1,200 mg PO DAILY 05/18/21 05/07/24 History Spironolactone 25 mg PO DAILY 03/15/22 05/07/24 History oxyCODONE-APAP 10-325MG [Percocet 1 tab PO Q6HR PRN 03/15/22 05/07/24 History 10-325 mg] Ferrous Sulfate [Iron] 325 mg PO BID 04/09/24 05/07/24 History allopurinoL [Zyloprim] 100 mg PO DAILY 04/09/24 05/07/24 History rOPINIRole HCL [Requip] 0.25 mg PO HS 04/09/24 05/07/24 History Clindamycin Topical Soln 1 applic TOPICAL BID PRN 05/07/24 05/07/24 History [Cleocin-T Topical Soln] Unk Excederin 1 tab PO DIRECTED PRN 07/10/24 07/10/24 History methocarbamoL 500 mg PO DIRECTED 05/09/24 05/09/24 History Allergies Allergy/AdvReac Type Severity Reaction Status Date / Time nickel Allergy Unknown Rash/Hives Verified 05/07/24 15:23 gabapentin AdvReac Hallucinati Verified 05/07/24 15:23 ons
[~2024-05-12 12:10] MED LIST changes: -DEXAMETHASONE SOD PHOSPHATE 4 MG/ML 1 ML VIAL IV ONE; -LACTATED RINGERS 1,000 ML IV SCH; -ONDANSETRON 4 MG/2 ML VIAL IVP ONE; -SCOPOLAMINE 1.5MG/72HR PATCH TRANSDERM ONE
[2024-05-12] MEDS: LACTATED RINGERS 1,000 ML IV SCH (13:00)
[2024-05-12] MEDS: IV FLUID CONTINUATION 1,000 ML IV ONE ×2 (13:00→15:16)
[2024-05-12] MEDS: ACETAMINOPHEN TAB 500 MG TAB PO PRN (13:05)
[2024-05-12] MEDS: MIDAZOLAM 2 MG/2 ML VIAL IVP ONE (13:18)
[2024-05-12] MEDS: DEXAMETHASONE SOD PHOSPHATE 4 MG/ML 1 ML VIAL IV ONE (13:35)
[2024-05-12] MEDS: HEPARIN SODIUM,PORCINE 5,000 UNIT/ML 1 ML VIAL SQ PRN (13:36)
[2024-05-12] MEDS: ONDANSETRON 4 MG/2 ML VIAL IVP PRN (13:36)
--- NOTE | 2024-05-12 13:39 | P.ANPRN ---
Procedure Note - Anesthesia - Nerve Block Performed Bilateral Erector Spinae Single Time Out Performed: Yes Date of Procedure: 05/12/24 Procedure Start Time: 13:07 Procedure Stop Time: 13:12 Location of Patient: PreOp Indication: Acute Post-Operative Pain, Analgesia, Requested by Surgeon Sedation Type: Sedate with meaningful contact maintained Preparation: Sterile Prep Position: Prone Catheter: None Needle Types: Pajunk Needle Gauge: 21 Ultrasound used to visualize needle placement: Yes Ultrasound used to observe medication spread: Yes Injectate: 0.5% Ropivacaine (see comment for volume) (Ropiv 20ml+decadron 4mg---Each side) Blood Aspirated: No Pain Paresthesia on Injection Noted: No Resistance on Injection: Normal Image Stored and Saved: Yes Events: Uneventful and Well Tolerated
[2024-05-12] MEDS ORDERED: PROPOFOL 10 MG/ML 20 ML VIAL IV ONE (13:54)
[2024-05-12] MEDS ORDERED: LIDOCAINE 1% INJ 10MG/ML (20 ML MDV) ONE (13:54)
[2024-05-12] MEDS ORDERED: ROPIVACAINE 5 MG/ML 30 ML VIAL ONE (13:54)
[2024-05-12] MEDS ORDERED: PHENYLEPHRINE-0.9% NACL SYG 1,000 MCG/10 ML SYRINGE ONE (13:54)
[2024-05-12] MEDS ORDERED: MIDAZOLAM 2 MG/2 ML VIAL ONE (13:54)
[2024-05-12] MEDS ORDERED: DEXAMETHASONE SOD PHOSPHATE 4 MG/ML 1 ML VIAL ONE (13:54)
[2024-05-12] MEDS ORDERED: KETOROLAC 15 MG/ML 1 ML VIAL ONE (13:54)
[2024-05-12] MEDS ORDERED: fentaNYL (PF) 50 MCG/ML 2 ML AMP ONE (13:54)
[2024-05-12] MEDS ORDERED: SUCCINYLCHOLINE CHLORIDE 200 MG/10 ML VIAL IV ONE (13:54)
[2024-05-12] MEDS: ceFAZolin 3 GM in SODIUM CHLORIDE 0.9% 100 ML IVPB PRN (13:59)
[2024-05-12] MEDS: LACTATED RINGERS 1,000 ML IV ONE (17:30)
[2024-05-12] MEDS: HYDROmorphone 0.5 MG/0.5 ML SYRINGE IVP PRN (18:36)
[2024-05-12] MEDS ORDERED: SIMETHICONE 80 MG CHEWABLE PO PRN (18:43)
[2024-05-12] MEDS ORDERED: NALOXONE 0.4 MG/ML 1 ML VIAL IV PRN (18:44)
[2024-05-12] MEDS ORDERED: HYDROmorphone 1 MG/ML 1 ML SYRINGE IVP PRN (18:45)
[2024-05-12] MEDS: fentaNYL PCA 500 MCG/50 ML BAG IV SCH (22:07)
[2024-05-12] MEDS: ENOXAPARIN 30 MG/0.3 ML SYRINGE SQ SCH (22:07)
--- NOTE | 2024-05-12 22:21 | P.OP ---
Date of Procedure: 05/12/24 Description of Procedure: SURGEON: MARISELA GRAHAM MD PREOPERATIVE DIAGNOSES: 1. Morbid obesity due to excess calories 2. Body mass index of 95.0, initial to 52.7 3. Osteoarthritis of the knees. 4. Rheumatoid arthritis 5. Osteoarthritis of the lower back. 6. Hypertensive heart disease. 7. Chronic pain syndrome 8. Gastroesophageal reflux disease 9. Chronic panniculitis 10. Asthma 11. Chronic obstructive pulmonary disorder 12. Obstructive sleep apnea 13. Anxiety disorder 14. Congestive heart failure 15. Hiatal hernia 16. Cholecystitis 17. Secondhand tobacco abuse exposure POSTOPERATIVE DIAGNOSES: 1. Morbid obesity due to excess calories 2. Body mass index of 95.0, initial to 52.7 3. Osteoarthritis of the knees. 4. Rheumatoid arthritis 5. Osteoarthritis of the lower back. 6. Hypertensive heart disease. 7. Chronic pain syndrome 8. Gastroesophageal reflux disease 9. Chronic panniculitis 10. Asthma 11. Chronic obstructive pulmonary disorder 12. Obstructive sleep apnea 13. Anxiety disorder 14. Congestive heart failure 15. Hiatal hernia 16. Cholecystitis 17. Secondhand tobacco abuse exposure 18. Initial reducible umbilical hernia, 2 cm OPERATION: 1. Panniculectomy, supra-umbilical, 32.35 pounds. 2. Open repair of reducible umbilical hernia, 2 cm without mesh ANESTHESIA: General with regional block ESTIMATED BLOOD LOSS: 500 mL SPECIMENS REMOVED: Pannus 32.35 pounds. COMPLICATIONS: None. CONDITION: Stable. DRAINS: Two #19 Robert drains below abdominal flap extending through the pubis. OPERATIVE FINDINGS: 1. Panniculectomy, 32.35 pounds 2. Reducible umbilical hernia, initial, 2 cm INDICATIONS: Mar Del Castillo (White/Katelin) is a 68-year-old female status post gastric bypass 2012. She is 11 years out. She has been lost to follow-up for 2 years. She comes in with worsening symptoms from her pannus including lower back pain, troubles with grooming including irritation and rash underneath her pannus. She has maintained over 200+ pound weight loss. Her back and knees are bothering from her pannus. She presents for assessment of panniculectomy. Patient has been treating her symptoms over 2 to 4 years including assessment with neurologist, orthopedic providers and fabric normalizer. She has been using medicated creams and prescribed creams for over 2 to 3 years. At height of 5 feet 7.25 inches, her ideal body weight is 158 pounds. She comes in 336 pounds from 360 pounds, 2 months ago. Her highest weight was 610 pounds. She has lost 273 pounds lifetime. Her body mass index highest was 95.0. Today her BMI is 52.7. Lifetime percent excess weight loss of 58%. She is 202 pounds overweight. Benefits and risks of the procedure including bleeding, infection, risk of flap failure, chronic pain, cosmetic deformity, need for further surgery were described at length. Informed consent was obtained. DESCRIPTION: In the preanesthesia care unit the patient was marked with an indelible marker. Additionally, regional block was placed. She has been given heparin subcutaneously. The patient was brought into the operating room and laid in supine position. After general induction, a Alcantar catheter was placed. The abdomen was then prepped and draped in standard sterile fashion using ChloraPrep. The skin was prepped as far laterally to the back, inferiorly to the upper thighs and superiorly to above the bilateral chest. A timeout protocol was confirmed with the surgical team regarding patient's name, procedure to be performed, including preoperative medications. He had received Ancef 3 grams IV antibiotics. Once the time-out protocol was confirmed with the surgical team, the patient was re-marked with indelible marker whereby the midline of the xiphoid to the pubis was marked. The anterior/superior iliac spine along the bilateral hips was also marked. Approximately 8 cm above the base of the pubic commissure, a transverse incision was made for the inferior portion of the flap. Using a #10 blade, the incision was taken from the midline laterally to above the anterior/superior iliac spine, initially on the left side of the patient and then on the right side of the patient. Electro-Bovie cautery was used to control for hemostasis. The dissection was taken down to the level of the fascia. Landmarks used were to the bilateral costal margins for the superior margin. Care was taken to avoid any creation of dog ears during the dissection. Attention was now brought to closure of the flap. Using stainless steel skin dina, the midline was once again marked of the upper flap as well as the pubis. The patient was placed in a flexed position of approximately 30 degrees at the hips. The pannus was extended inferiorly to the feet. The upper flap was created once the excess skin was excised. Again care was taken to avoid any dog ears along the lateral aspect of the incisions. Total resection of 32.35 pounds of the pannus performed. The upper and lower flaps were reapproximated at the midline and then laterally to the skin with skin dina. Once reapproximated, the skin was closed in lay ers using 0 Vicryl for the superficial fascial system followed by running 3-0 Monocryl for the deep dermis. Prior to skin closure, two round #19 Robert drains were placed underneath the flap and brought out just inferior to the incision along the pubis. Drain stitch using 2-0 nylon was placed. Once the incision was closed, bulb suction was attached. Hemostasis was checked. At the end of the procedure, the needle, sponge and instrument count was verified correct. Skin was cleansed with normal saline including hydrogen peroxide. Antibiotic Optifoam sponge dressing was placed over the incision after Dermabond tape. Optifoam dressing was placed over the LAKSHMI exit sites. The patient was then transferred to a hospital bed in a beach chair position. An abdominal binder was placed. The patient was taken to the postanesthesia care unit in stable condition, awake and extubated.
[2024-05-12] MEDS: D5-0.45% NACL WITH KCL 20MEQ/L 1,000 ML IV SCH (22:23)
[2024-05-12] MEDS: ceFAZolin 3 GM in SODIUM CHLORIDE 0.9% 100 ML IVPB SCH (22:27)
[2024-05-13] MEDS: LOSARTAN 50 MG TAB PO SCH (08:14)
[2024-05-13] MEDS: MAGNESIUM OXIDE 400 MG TAB PO SCH (08:15)
[2024-05-13] MEDS: hydroCHLOROthiazide 12.5 MG CAP PO SCH (08:15)
[2024-05-13] MEDS: allopurinoL 100 MG TAB PO SCH (08:15)
[2024-05-13] MEDS: amLODIPine 10 MG TAB PO SCH (08:15)
[2024-05-13] MEDS: SPIRONOLACTONE 25 MG TAB PO SCH (08:15)
[2024-05-13] MEDS: SYMBICORT 80-4.5 MCG INHALER INHALATION PRN (09:01)
[2024-05-13] MEDS: ALBUTEROL NEBULIZED 2.5 MG/3 ML INHALATION PRN (12:21)
[2024-05-13] MEDS: SODIUM CHLORIDE 0.9% 1,000 ML IV ONE (14:25)
--- NOTE | 2024-05-13 14:26 | P.PN ---
Subjective Progress Note Date: 05/13/24 CHIEF COMPLAINT: Morbid obesity HISTORY OF PRESENT ILLNESS: Patient is postop day #1 status post panniculectomy and open repair of reducible umbilical hernia without mesh. Patient is still requiring the HOSE FINISHER pump for pain control. Alcantar catheter was just removed. Monitoring for any urinary retention. Patient had not been ambulating as of this morning. She did eat a small amount of her breakfast. And tolerated that well. She is afebrile. Patient is hypotensive with a BP of 90/53. LAKSHMI drains with sanguinous output PHYSICAL EXAM: VITAL SIGNS: Reviewed GENERAL: Well-developed in no acute distress. HEENT: No sclera icterus. Extraocular movements grossly intact. Moist buccal mucosa. Head is atraumatic, normocephalic. Hears conversational speech. No nasal drainage. NECK: Supple without lymphadenopathy. CHEST: Non-labored respirations and equal bilateral excursions. CARDIOVASCULAR: Palpable 2+ radial pulses. ABDOMEN: Soft. Nondistended. Abdominal binder in place. 2 LAKSHMI drains with sanguinous output MUSCULOSKELETAL: No clubbing or cyanosis. NEUROLOGIC: No focal or lateralizing signs. Cranial nerves II through XII grossly intact. PSYCH: Appropriate affect. Alert and oriented to person, place and time. SKIN: Well perfused. Good skin turgor. ASSESSMENT: 1. Morbid obesity due to excess calories 2. Body mass index of 95.0, initial to 52.7 3. Osteoarthritis of the knees. 4. Rheumatoid arthritis 5. Osteoarthritis of the lower back. 6. Hypertensive heart disease. 7. Chronic pain syndrome 8. Gastroesophageal reflux disease 9. Chronic panniculitis 10. Asthma 11. Chronic obstructive pulmonary disorder 12. Obstructive sleep apnea 13. Anxiety disorder 14. Congestive heart failure 15. Hiatal hernia 16. Cholecystitis 17. Secondhand tobacco abuse exposure 18. Initial reducible umbilical hernia, 2 cm 19. Hypotension PLAN: -Patient's hypotension will give a 1 L fluid bolus. Will hold all of her BP meds. And continue to monitor -Discontinue Alcantar catheter and monitor for any urine retention -Continue pain management. Patient requiring the HOSE FINISHER pump. -Continue IV fluids -CBC ordered -Continue to monitor LAKSHMI drain output Physician [employer] Judge note has been reviewed by physician. Signing provider agrees with the documented findings, assessment, and plan of care. Objective - Vital Signs Vital signs: Vital Signs Temp 98.8 F 05/13/24 14:00 Pulse 85 05/13/24 14:00 Resp 18 05/13/24 14:00 BP 90/53 05/13/24 14:00 Pulse Ox 97 05/13/24 14:00 FiO2 Intake & Output 05/12/24 05/13/24 05/13/24 18:59 06:59 18:59 Intake Total 2300 600 480 Output Total 006 218 1433 Balance 1700 245 -695 Weight 152.7 kg Intake: IV 2300 Oral 600 480 Output: Drainage 155 75 Left Abdomen 100 50 Right Abdomen 55 25 Urine 085 549 [id number] Estimated Blood Loss 500 Other: Voiding Method Indwelling Catheter Indwelling Catheter
[2024-05-13 15:25] LABS: HCT 30.6 % (34.0-46.0); HGB 9.5 gm/dL (11.4-16.0); Hypochromasia Slight; MCH 28.1 pg (25.0-35.0); MCHC 31.1 g/dL (31.0-37.0); MCV 90.2 fL (80.0-100.0); Mean Platelet Volume 8.5; Platelet Count 236 k/uL (150-450); RBC 3.39 m/uL (3.80-5.40); RDW 15.3 % (11.5-15.5); WBC 14.3 k/uL (3.8-10.6)
[2024-05-14] MEDS: ONDANSETRON 4 MG/2 ML VIAL IVP PRN (08:57)
[2024-05-14 09:21] LABS: Basophils % (A) 0 %; Eosinophils # (A) 0.1 k/uL (0-0.7); Eosinophils % (A) 1 %; HCT 33.2 % (34.0-46.0); Hypochromasia Slight; Lymphocytes # (A) 2.6 k/uL (1.0-4.8); Lymphocytes % (A) 23 %; MCH 27.3 pg (25.0-35.0); MCHC 30.1 g/dL (31.0-37.0); MCV 90.6 fL (80.0-100.0); Mean Platelet Volume 8.7; Monocytes # (A) 0.7 k/uL (0-1.0); Monocytes % (A) 7 %; Neutrophils # (A) 7.8 k/uL (1.3-7.7); Neutrophils % (A) 69 %; Platelet Count 259 k/uL (150-450); RBC 3.66 m/uL (3.80-5.40); RDW 15.5 % (11.5-15.5); WBC 11.4 k/uL (3.8-10.6)
[2024-05-14] MEDS: oxyCODONE-APAP 10-325MG 1 EACH TAB PO PRN (13:46)
[2024-05-14 15:04] LABS: African American GFR (CKD) 57 (>60 ml/min/1.73 sqM); Anion Gap 5 mmol/L; Blood Urea Nitrogen 22 mg/dL (7-17); Calcium 8.5 mg/dL (8.4-10.2); Carbon Dioxide 23 mmol/L (22-30); Chloride 109 mmol/L (98-107); Glucose 76 mg/dL (74-99); Non-African American GFR(CKD) 49 (>60 ml/min/1.73 sqM); Potassium 4.7 mmol/L (3.5-5.1); Sodium 137 mmol/L (137-145)
[2024-05-14] MEDS: SODIUM CHLORIDE 0.9% 1,000 ML IV SCH (20:26)
--- NOTE | 2024-05-14 23:49 | P.PN ---
Subjective Progress Note Date: 05/14/24 CHIEF COMPLAINT: Panniculitis HISTORY OF PRESENT ILLNESS: The patient is a 69-year-old female status post panniculectomy for 32 pound pannus including umbilical hernia repair. She had been hypotensive overnight. Patient has just started to ambulate. Pain is controlled. Patient's blood pressure medications has been discontinued due to hypotension. ROS: No reports of nausea and vomiting. No fevers or chills. No new chest pain. No productive sputum PHYSICAL EXAM: VITAL SIGNS: Reviewed CONSTITUTIONAL: Well developed and in no acute distress. EYES: Conjuctivae without sclera icterus. Extraocular movements grossly intact. HEAD, EARS, NOSE, THROAT: Moist buccal mucosa. Head is atraumatic, normocephalic. Hears conversational speech. No nasal drainage. RESPIRATORY: Non-labored respirations and equal bilateral excursions. CARDIOVASCULAR: Palpable 2+ radial pulses. ABDOMEN: Abdominal binder intact. LAKSHMI drain sanguinous x 2. MUSCULOSKELETAL: No gross deformity of the lower extremities noted. No clubbing. No cyanosis. SKIN: Good skin turgor. Well perfused. NEUROLOGIC: Cranial nerves II through XII grossly intact. No focal or lateralizing signs. PSYCH: Appropriate affect. Alert and oriented to person, place and time. CLINICAL LABS: Reviewed. WBC elevated over 11,000. Hemoglobin 10.9, anemia. Creatinine elevated over 1.0. ASSESSMENT: 1. Panniculitis, status post panniculectomy 32+ pounds 2. Umbilical hernia repair 3. Morbid obesity due to excess calories, BMI 52.7 4. Status post gastric bypass 5. Hypotension 6. Chronic pain syndrome PLAN: 1. Continue hospitalization as most recent blood pressure in 12 to 24 hours demonstrated hypotension. All blood pressure medications has been discontinued. 2. Continue hospitalization due to hypotension, symptomatic. 3. Adjust IV fluids to 150 cc/h. 4. Repeat CBC and BMP with assessment for discharge tomorrow after complete resolution of hypotension. 5. For wound healing, protein intake 60 g daily advised with start of Premier protein shakes 3 times daily 6. Maintain head of bed at 45 degrees to minimize risk of wound dehiscence Objective - Vital Signs Vital signs: Vital Signs Temp 97.9 F 05/14/24 19:47 Pulse 80 05/14/24 19:47 Resp 18 05/14/24 19:47 BP 126/75 05/14/24 19:47 Pulse Ox 99 05/14/24 19:47 FiO2 21 05/14/24 09:33 Intake & Output 05/14/24 05/14/24 05/15/24 06:59 18:59 06:59 Output Total 235 Balance -235 Output: Drainage 235 Left Abdomen 90 Right Abdomen 145 Other: Voiding Method Toilet Toilet # Voids 1 2 - Labs CBC & Chem 7: 05/14/24 09:03 05/14/24 14:07 Labs: Abnormal Lab Results - Last 24 Hours (Table) 05/14/24 05/14/24 Range/Units 09:03 14:07 WBC 11.4 H (3.8-10.6) k/uL RBC 3.66 L (3.80-5.40) m/uL Hgb 10.0 L (11.4-16.0) gm/dL Hct 33.2 L (34.0-46.0) % MCHC 30.1 L (31.0-37.0) g/dL Neutrophils # 7.8 H (1.3-7.7) k/uL Chloride 109 H (98-107) mmol/L BUN 22 H (7-17) mg/dL Creatinine 1.16 H (0.52-1.04) mg/dL
[2024-05-15 08:43] LABS: Basophils # (A) 0.07 X 10*3/uL (0.00-0.10); Basophils % (A) 0.8 %; Eosinophils # (A) 0.24 X 10*3/uL (0.04-0.35); Eosinophils % (A) 2.7 %; HGB 9.4 g/dL (12.0-15.0); Lymphocytes # (A) 2.71 X 10*3/uL (0.90-5.00); Lymphocytes % (A) 30.1 %; MCH 27.7 pg (27.0-32.0); MCHC 31.3 g/dL (32.0-37.0); MCV 88.5 FL (80.0-97.0); Monocytes # (A) 0.87 X 10*3/uL (0.20-1.00); Monocytes % (A) 9.7 %; NRBC Per 100 WBC 0 X 10*3/uL (0.00-0.01); Neutrophils # (A) 5.08 X 10*3/uL (1.80-7.70); Neutrophils % (A) 56.4 %; Platelet Count 240 X 10*3/uL (140-440); RBC 3.39 X 10*6/uL (4.10-5.20); RDW 16.4 % (11.5-14.5)
[2024-05-15 08:58] LABS: BUN/Creat Ratio 15.38 Ratio (12.00-20.00); Calcium 8.7 mg/dL (8.7-10.3); Carbon Dioxide 21.8 mmol/L (21.6-31.8); Chloride 107 mmol/L (96-109); Glucose 90 mg/dL (70-110); Potassium 5.2 mmol/L (3.5-5.5); Sodium 137 mmol/L (135-145)
[2024-05-15 14:21] VITALS: BP 116/73; PULSE 83; RESP 20; TEMP 98.9
--- NOTE | 2024-05-15 14:52 | P.DS ---
Providers Date of admission: 05/12/24 12:11 Expected date of discharge: 05/15/24 Attending physician: Suzette Packer Consults: 05/12/24 08:40 Consult Physician Routine Consulting Provider: [facility] Consult Reason/Comments: REGIONAL BLOCK PLEASE Do you want consulting provider notified?: Yes Primary care physician: Stated None Hospital Course: Discharge diagnosis 1. Panniculitis, status post panniculectomy 32+ pounds 2. Umbilical hernia repair 3. Morbid obesity due to excess calories, BMI 52.7 4. Status post gastric bypass 5. Hypotension 6. Chronic pain syndrome Hospital course Simon is a 68-year-old female status post gastric bypass 2012. She is 11 years out. She has been lost to follow-up for 2 years. She comes in with worsening symptoms from her pannus including lower back pain, troubles with grooming including irritation and rash underneath her pannus. She has maintained over 200+ pound weight loss. Patient is status post panniculectomy and open repair of a reducible umbilical hernia. Patient's pain is controlled. She is tolerating diet. She is having flatus. She did have some hypotension and received fluid boluses her blood pressure medications remain on hold. Blood pressure has improved. She has been able to ambulate without any dizziness. Patient is afebrile. Patient is stable for discharge. 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 Signing provider agrees with the documented findings, assessment, and plan of care. Patient Condition at Discharge: Stable Plan - Discharge Summary Discharge Rx Participant: Yes New Discharge Prescriptions: New bisacodyL [Dulcolax] 5 mg PO DAILY PRN #10 tab PRN Reason: Constipation Simethicone 40 mg/0.6 ml Drops [Mylicon Drops] 40 mg PO PCHS PRN #30 ml PRN Reason: Gas Omeprazole [PriLOSEC] 40 mg PO DAILY #30 cap Ondansetron Odt [Zofran Odt] 4 mg PO Q8HR PRN #9 tab PRN Reason: Nausea Continue Albuterol Sulfate [Proair Hfa] 2 puff INHALATION Q6HR PRN PRN Reason: Shortness Of Breath Nystatin [Nystop] 1 applic TOPICAL DAILY PRN PRN Reason: Rash Magnesium Oxide 250 mg PO DAILY Dimethicone/Zinc Oxide [Inzo Zinc Oxide Barrier Cream] 1 applic TOPICAL BID PRN PRN Reason: Rash Clindamycin Gel [Cleocin T 1% Gel] 1 applicator TOPICAL BID PRN PRN Reason: Rash Budesonide/Formoterol Fumarate [Symbicort 80-4.5 Mcg Inhaler] 1 puff INHALATION BID PRN PRN Reason: Shortness Of Breath oxyCODONE-APAP 10-325MG [Percocet 10-325 mg] 1 tab PO Q6HR PRN PRN Reason: Pain Ferrous Sulfate [Iron] 325 mg PO BID Nystatin 100,000 Unit/gm Powd [Mycostatin Powder] 1 applic TOPICAL BID #60 powder Simethicone [Gas-X] 125 mg PO AC-TID PRN #20 capsule PRN Reason: Abdominal Distention rOPINIRole HCL [Requip] 0.25 mg PO HS allopurinoL [Zyloprim] 100 mg PO DAILY Clindamycin Topical Soln [Cleocin-T Topical Soln] 1 applic TOPICAL BID PRN PRN Reason: Rash methocarbamoL 500 mg PO DIRECTED Discontinued Cyanocobalamin [Vitamin B-12] 1,000 mcg PO DAILY Multivitamins, Thera [Multivitamin (formulary)] 1 each PO DAILY Ergocalciferol [Vitamin D2 (DRISDOL)] 50,000 unit PO MADRIGAL amLODIPine [Norvasc] 10 mg PO QAM Irbesartan/Hydrochlorothiazide [Irbesartan-Hctz 300-12.5 mg Tb] 1 each PO QAM Zinc 50 mg PO DAILY Calcium Citrate 1,200 mg PO DAILY Spironolactone 25 mg PO DAILY Unk Excederin 1 tab PO DIRECTED PRN PRN Reason: Headache Discharge Medication List Albuterol Sulfate [Proair Hfa] 2 puff INHALATION Q6HR PRN 02/04/15 [History] Nystatin [Nystop] 1 applic TOPICAL DAILY PRN 01/02/17 [History] Budesonide/Formoterol Fumarate [Symbicort 80-4.5 Mcg Inhaler] 1 puff INHALATION BID PRN 04/03/18 [History] Clindamycin Gel [Cleocin T 1% Gel] 1 applicator TOPICAL BID PRN 04/03/18 [History] Dimethicone/Zinc Oxide [Inzo Zinc Oxide Barrier Cream] 1 applic TOPICAL BID PRN 04/03/18 [History] Magnesium Oxide 250 mg PO DAILY 04/03/18 [History] Nystatin 100,000 Unit/gm Powd [Mycostatin Powder] 1 applic TOPICAL BID #60 powder 02/09/21 [Rx] Simethicone [Gas-X] 125 mg PO AC-TID PRN #20 capsule 02/21/21 [Rx] oxyCODONE-APAP 10-325MG [Percocet 10-325 mg] 1 tab PO Q6HR PRN 03/15/22 [History] Ferrous Sulfate [Iron] 325 mg PO BID 04/09/24 [History] allopurinoL [Zyloprim] 100 mg PO DAILY 04/09/24 [History] rOPINIRole HCL [Requip] 0.25 mg PO HS 04/09/24 [History] Clindamycin Topical Soln [Cleocin-T Topical Soln] 1 applic TOPICAL BID PRN 05/07/24 [History] methocarbamoL 500 mg PO DIRECTED 05/09/24 [History] Omeprazole [PriLOSEC] 40 mg PO DAILY #30 cap 05/15/24 [Rx] Ondansetron Odt [Zofran Odt] 4 mg PO Q8HR PRN #9 tab 05/15/24 [Rx] Simethicone 40 mg/0.6 ml Drops [Mylicon Drops] 40 mg PO PCHS PRN #30 ml 05/15/24 [Rx] bisacodyL [Dulcolax] 5 mg PO DAILY PRN #10 tab 05/15/24 [Rx] Follow up [facility]ment(s[facility] [facility] [place] [place] [facility] - [facility]16[facility]24 Activity/Diet/Wound Care/Special Instructions: No lifting over 4 pounds in 4 weeks. No bathtub soaks. No shower. No stretching or twisting. Sleep in a recliner. DO NOT REMOVE DRESSINGS. DO NOT REMOVE BINDER. Keep record of LAKSHMI outputs daily. Keep a log of LAKSHMI drain output and bring with you to your follow-up appointment Milk/strip drains 2-3 times a day Do not take any vitamins at this time due to increased bleeding risk Do not apply any creams or lotions to abdomen Hold on taking blood pressure pills until seen by surgeon Discharge Disposition: HOME SELF-CARE
== END 2024-05-15 15:37 | disposition home or self-care (01) | DRG 571 ==
LOC: OR 12:10 → 4SSUR 12:11
PROVIDERS: ADMIT Surgery Plastic and Reconstructive Surgery; ATTEND Surgery Plastic and Reconstructive Surgery
PROC: 0WQF0ZZ Repair Abdominal Wall, Open Approach (ICD-10-PCS; 2024-05-12)
PROC: 3E0T3BZ Introduction of Anesthetic Agent into Peripheral Nerves and Plexi, Percutaneous Approach (ICD-10-PCS; 2024-05-12)
PROC: 3E0T33Z Introduction of Anti-inflammatory into Peripheral Nerves and Plexi, Percutaneous Approach (ICD-10-PCS; 2024-05-12)
PROC: 0JB80ZZ Excision of Abdomen Subcutaneous Tissue and Fascia, Open Approach (ICD-10-PCS; principal; 2024-05-12 14:10)
DX: M79.3 Panniculitis, unspecified (principal); Z68.43 Body mass index [BMI] 50.0-59.9, adult; I11.0 Hypertensive heart disease with heart failure; E66.01 Morbid (severe) obesity due to excess calories; M06.9 Rheumatoid arthritis, unspecified; K81.9 Cholecystitis, unspecified; I95.9 Hypotension, unspecified; J44.89 Other specified chronic obstructive pulmonary disease; G89.4 Chronic pain syndrome; M54.50 Low back pain, unspecified; K42.9 Umbilical hernia without obstruction or gangrene; G89.18 Other acute postprocedural pain; M17.0 Bilateral primary osteoarthritis of knee; K21.9 Gastro-esophageal reflux disease without esophagitis; G47.33 Obstructive sleep apnea (adult) (pediatric); F41.9 Anxiety disorder, unspecified; K44.9 Diaphragmatic hernia without obstruction or gangrene; M54.9 Dorsalgia, unspecified; Z77.22 Contact with and (suspected) exposure to environmental tobacco smoke (acute) (chronic); Z96.653 Presence of artificial knee joint, bilateral; Z91.198 Patient's noncompliance with other medical treatment and regimen for other reason; Z79.51 Long term (current) use of inhaled steroids; Z98.84 Bariatric surgery status; Z79.899 Other long term (current) drug therapy; Z87.19 Personal history of other diseases of the digestive system; I50.9 Heart failure, unspecified
CPT/HCPCS: 64999; 80048; 85025; 85027; 94640; 94760

== ENCOUNTER 2024-05-16 19:34 | Observation (INO) | payer MEDICARE, OTHER ==
[2024-05-16] MEDS: SODIUM CHLORIDE 0.9% 1,000 ML IV STA (21:37)
[2024-05-16] MEDS: ACETAMINOPHEN TAB 325 MG TAB PO STA (21:38)
[2024-05-16 21:54] LABS: Basophils # (A) 0.1 k/uL (0-0.2); Basophils % (A) 1 %; Eosinophils # (A) 0.3 k/uL (0-0.7); Eosinophils % (A) 3 %; Hypochromasia Slight; Lymphocytes # (A) 2.2 k/uL (1.0-4.8); Lymphocytes % (A) 21 %; MCH 28.2 pg (25.0-35.0); MCHC 32.2 g/dL (31.0-37.0); MCV 87.5 fL (80.0-100.0); Monocytes # (A) 0.6 k/uL (0-1.0); Monocytes % (A) 6 %; Neutrophils # (A) 7.1 k/uL (1.3-7.7); Neutrophils % (A) 68 %; Platelet Count 275 k/uL (150-450); RBC 3.54 m/uL (3.80-5.40); WBC 10.5 k/uL (3.8-10.6)
[2024-05-16 22:05] LABS: ALT 11 U/L (4-34); AST 21 U/L (14-36); African American GFR (CKD) 55 (>60 ml/min/1.73 sqM); Alkaline Phosphatase 83 U/L (38-126); Anion Gap 6 mmol/L; Blood Urea Nitrogen 29 mg/dL (7-17); Calcium 9.2 mg/dL (8.4-10.2); Carbon Dioxide 22 mmol/L (22-30); Chloride 108 mmol/L (98-107); Glucose 96 mg/dL (74-99); Non-African American GFR(CKD) 47 (>60 ml/min/1.73 sqM); Potassium 4.4 mmol/L (3.5-5.1); Sodium 136 mmol/L (137-145); Total Bilirubin 0.4 mg/dL (0.2-1.3); Total Protein 5.4 g/dL (6.3-8.2)
--- NOTE | 2024-05-16 22:08 | ED ---
General Adult HPI - General Chief complaint: Dizziness Stated complaint: low bp, dizziness Time Seen by Provider: 05/16/24 20:10 Source: family Mode of arrival: wheelchair Limitations: no limitations - History of Present Illness Initial comments: Patient is a 69-year-old female past medical history recent panniculectomy, umbilical hernia surgery, hypertension discharged yesterday, hospital stay complicated by hypotension, prior gastric bypass presenting today for hypotension. Patient took her home 10 mg [place], went to make food and began feeling dizzy and lightheaded. She sat down and took her blood pressure which showed a blood pressure of 100/50. She had a repeat blood pressure of 90/40 so came to the ED. Patient states this time she also felt shortness of breath during this episode of dizziness that has since resolved. Denies any chest pain. Does have persistent lower extremity swelling bilaterally. Has not taken any of her antihypertensives today or her spirinolactone. Patient denies any fevers, sweats, states he has felt chilled recently. Denies any unexpected weight loss or weight gain. Denies cough or hemoptysis. Denies history of cancers. No history of prior PE/ DVT. No recent vomiting, diarrhea. Denies new abdominal pain. Does endorse some mild intermittent urinary frequency and urgency. - Related Data Home Medications Medication Instructions Recorded Confirmed allopurinoL [Zyloprim] 100 mg PO DAILY 04/09/24 05/16/24 rOPINIRole HCL [Requip] 0.25 mg PO HS 04/09/24 05/16/24 methocarbamoL 500 mg PO TID PRN 05/09/24 05/16/24 DULoxetine HCL [Cymbalta] 60 mg PO DAILY PRN 05/16/24 05/16/24 Ergocalciferol [Vitamin D2 (1250 1,250 mcg PO MADRIGAL 05/16/24 05/16/24 Mcg = 60853 Iu)] Fluticasone Propion/Salmeterol 1 puff INHALATION RT-BID PRN 05/16/24 05/16/24 [Advair 250-50 Diskus] HYDROcodone/APAP 10-325MG [[place] 1 tab PO QID PRN 05/16/24 05/16/24 10-325] Linaclotide [Linzess] 145 mcg PO DAILY PRN 05/16/24 05/16/24 Previous Rx's Medication Instructions Recorded Omeprazole [PriLOSEC] 40 mg PO DAILY #30 cap 05/15/24 Ondansetron Odt [Zofran ODT] 4 mg PO Q8HR PRN #9 tab 05/15/24 Simethicone 40 mg/0.6 ml Drops 40 mg PO PCHS PRN #30 ml 05/15/24 [Mylicon Drops] bisacodyL [Dulcolax] 5 mg PO DAILY PRN #10 tab 05/15/24 Allergies Allergy/AdvReac Type Severity Reaction Status Date / Time nickel Allergy Unknown Rash/Hives Verified 05/16/24 21:05 gabapentin AdvReac Hallucinati Verified 05/16/24 21:05 ons Review of Systems ROS Statement: Those systems with pertinent positive or pertinent negative responses have been documented in the HPI. ROS Other: All systems not noted in ROS Statement are negative. Constitutional: Reports: chills. Denies: fever, night sweats Past Medical History Past Medical History: Asthma, GERD/Reflux, GI Bleed, Hypertension, Rheumatoid Arthritis (RA), Sleep Apnea/CPAP/BIPAP Additional Past Medical History / Comment(s): HEART MURMUR, ANEMIA, hiatal hernia, and chronic back pain, does use CPAP. 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 History of Any Multi-Drug Resistant Organisms: None Reported Past Surgical History: Bariatric Surgery, Cholecystectomy, Joint Replacement, Tonsillectomy, Tubal Ligation, Uterine Ablation Additional Past Surgical History / Comment(s): BILATERAL TOTAL KNEE REPLACE MENTS, D&C, upper endoscopy with esophageal dilatation X2, gastric bypass. Colonoscopy 2020. Past Anesthesia/Blood Transfusion Reactions: Previous Problems w/ Anesthesia, Family History of Problems w/ Anesthesia Additional Past Anesthesia/Blood Transfusion Reaction / Comment(s): Pt states awoke during surgery attributed to Sleep Apnea. Past Psychological History: Anxiety Smoking Status: Never smoker Past Alcohol Use History: Rare Past Drug Use History: None Reported - Past Family History Mother Family Medical History: Diabetes Mellitus Brother(s) Family Medical History: Seizure Disorder Additional Family Medical History / Comment(s): from seizure in 2020. Father Family Medical History: Cancer Additional Family Medical History / Comment(s): LIVER CANCER, paternal aunt had breast cancer and an uncle had colon cancer. Son(s) Family Medical History: Seizure Disorder Additional Family Medical History / Comment(s): from seizure Sister(s) Family Medical History: Deep Vein Thrombosis (DVT) General Exam - General Exam Comments Initial Comments: PE: CONSTITUTIONAL: no apparent distress, well appearing SKIN: warm, dry, no jaundice, hives or petechiae EYES: pupils are equally round, extraocular movements intact without nystagmus, clear conjunctiva, non-icteric sclera HENT: normocephalic, atraumatic, moist mucus membranes, oropharynx clear without exudates NECK: Nontender and supple with no nuchal rigidity, no lymphadenopathy, full range of motion PULMONARY: clear to auscultation without wheezes, rhonchi, or rales, normal excursion, no accessory muscle use and no stridor CARDIOVASCULAR: regular rate, rhythm, normal S1 and S2. No appreciated murmurs. Strong radial pulses with intact distal perfusion GASTROINTESTINAL: soft, non-tender, non-distended, no palpable masses, no rebound or guarding, exam is limited by abdominal binder in place, was last examined by Dr. Packer yesterday, written on the abdominal binder and all capital letters is ". do not remove". Patient was instructed by her surgeon to allow no one to remove the abdominal binder. this was left in place, there is no TTP to the abdomen or surrounding erythema, active bowel sounds LYMPHATICS: 2-3+ LE edema bilaterally MUSCULOSKELETAL: Extremities have no gross deformity, redness, or swelling, with exception of edema noted above NEUROLOGIC: _a/o x 3, GCS 15, normal mentation and speech. Moves all extremities x 4 without motor or sensory deficit PSYCHIATRIC: _normal mood and affect, thought process is clear and linear Limitations: no limitations Course Vital Signs 05/16/24 05/16/24 05/17/24 19:37 21:38 00:54 Temperature 97.9 F Pulse Rate 110 H 87 97 Pulse Rate [ Left] Respiratory 18 18 18 Rate Blood Pressure 133/68 114/68 107/63 Blood Pressure [Left Arm] O2 Sat by Pulse 98 97 99 Oximetry 05/17/24 05/17/24 05/17/24 03:31 05:10 06:58 Temperature Pulse Rate 82 85 86 Pulse Rate [ Left] Respiratory 20 18 20 Rate Blood Pressure 100/56 108/66 114/68 Blood Pressure [Left Arm] O2 Sat by Pulse 96 96 98 Oximetry 05/17/24 05/17/24 07:56 08:30 Temperature 98.2 F 98.2 F Pulse Rate 78 Pulse Rate [ 83 Left] Respiratory 16 18 Rate Blood Pressure 111/52 Blood Pressure 129/68 [Left Arm] O2 Sat by Pulse 99 Oximetry - Reevaluation(s) Reevaluation #1: Creatinine 1.19, yesterday was 1.3, this appears to be at baseline for the patient. sodium 136 patient to receive a liter of normal saline hemoglobin 10, this again appears to be at baseline for the patient over the last week, yesterday was 9.4 no leukocytosis, LFTs within normal limits GFR 55. 05/16/24 22:08 05/17/24 21:17 Reevaluation #2: 05/16/24 22:16 Patient with elevated D-dimer 2.46, CT PE study ordered 05/17/24 21:18 EKG Findings - EKG Comments: EKG Findings:: EKG interpretation. Sinus tachycardia. Rate 100 bpm. VA interv al 185 ms. Normal QT/QTc. Normal axis. No STEMI or arrhythmia Medical Decision Making - Medical Decision Making Was pt. sent in by a medical professional or institution (, PA, TELECOMMUNICATIONS ANALYST, urgent care, hospital, or jail...) When possible be specific @ -[No] Did you speak to anyone other than the patient for history (EMS, parent, family, police, friend...)? What history was obtained from this source @ -[No] Did you review nursing and triage notes (agree or disagree)? Why? @ -[I reviewed and agree with nursing and triage notes] Were old charts reviewed (outside hosp., previous admission, EMS record, old EKG, old radiological studies, urgent care reports/EKG's, jail records)? Report findings @ -Old charts were reviewed, patient discharged yesterday after being admitted for panniculectomy by Dr. Packer. Review of patient's discharge summary patient had "some hypotension received fluid boluses, her blood pressure medications remain on hold". Blood pressure improved. Patient was able to ambulate without difficult dizziness prior to discharge. Patient admitted on 05/12/2024 and discharged on 05/15/2024. Differential Diagnosis (chest pain, altered mental status, abdominal pain women, abdominal pain men, vaginal bleeding, weakness, fever, dyspnea, syncope, headache, dizziness, GI bleed, back pain, seizure, CVA, palpatations, mental health, musculoskeletal)? @ -Differential diagnosis remains broad however top considerations include dehydration, anemia, infection such as urinary tract infection, postop pneu monia, medication side effect, PE, orthostatic hypotension, CHF. Patient's exam is not consistent with intra-abdominal infection, she has no tenderness palpation of the abdomen, abdomen remains soft, she is afebrile. EKG interpreted by me (3pts min.). @ -[As above]. X-rays interpreted by me (1pt min.). @ -[None done] CT interpreted by me (1pt min.). @ -Pending at time of signout U/S interpreted by me (1pt. min.). @ -[None done] What testing was considered but not performed or refused? (CT, X-rays, U/S, labs)? Why? @ -I did consider intra-abdominal imaging with CT abdomen however patient has no GI symptoms, no nausea and vomiting, no new or worsening abdominal pain, no abdominal distention, abdomen is soft and nontender. No leukocytosis or significant anemia on labs to indicate hemorrhage or developing intra-abdominal infection at this point. What meds were considered but not given or refused? Why? @ -Consider giving patient dose of her home [place] however due to hypotension at home with [place] administration patient was given Tylenol instead Did you discuss the management of the patient with other professionals (professionals i.e. , PA, TELECOMMUNICATIONS ANALYST, lab, RT, psych nurse, social media editor, rotary shear worker helper, teacher, casino surveillance officer, casework supervisor)? Give summary @ -[No] Was smoking cessation discussed for >3mins.? @ -[No] Was critical care preformed (if so, how long)? @ -[No] Were there social determinants of health that impacted care today? How? (Homelessness, low income, unemployed, alcoholism, drug addiction, transportation, low edu. Level, literacy, decrease access to med. care, senior living, re hab)? @ -[No] Was there de-escalation of care discussed even if they declined (Discuss DNR or withdrawal of care, Hospice)? DNR status @ -[No] What co-morbidities impacted this encounter? (DM, HTN, Smoking, COPD, CAD, Cancer, CVA, ARF, Chemo, Hep., AIDS, mental health diagnosis, sleep apnea, morbid obesity)? @ -Obesity, hypertension Was patient admitted / discharged? Hospital course, mention meds given and route, prescriptions, significant lab abnormalities, going to OR and other pertinent info. @ -[facility], Dr. Aguilar, pending CT PE study. Disposition pending CT PE study. Patient is a 69-year-old female presenting for lightheadedness, dizziness and h ypotension at home after taking home [place], 1 day post discharge after panniculectomy and umbilical hernia surgery with hospitalization complicated by hypotension, and resolved with IV fluid resuscitation and holding patient's antihypertensives. The patient has continued to hold her antihypertensives. On arrival patient's blood pressure 133/68. HR 110 on arrval however on exam rate is regular, no tachycardia. Patient is afebrile. On my assessment patient is well-appearing in no acute distress. Accompanied by her daughter and son-in-law. Mucous membranes do appear somewhat dry, lungs are clear to auscultation bilaterally limited by body habitus, abdomen is soft and nontender with active bowel sounds. The patient does have an abdominal binder in place with strict instructions from her general surgeon to not allow anyone to remove the binder until she is seen by her surgeon. Patient does not complain of any worsening or new pain in the region of her surgery, there is no redness or discharge from around the area of the binder. 2-3+ lower extremity edema noted. Patient states present since hospitalization. IV fluids, Tylenol, D-dimer, troponin, BNP, CBC, CMP, EKG, lactic, TSH, urinalysis ordered. Chest imaging, chest x-ray versus CT PE study will depend on D-dimer result. Lactic 0.7. Troponin less than 0.012, BNP 122, TSH 1.69. Please see hospital course for interpretation of additional labs. Pending CT PE study patient was signed out to oncoming physician, Dr. Aguilar. Patient case including pertinent past medical history, HPI, physical exam findings and workup to this point as well as pending imaging presented to oncoming attending. Please see his additional notes for final disposition. Diagnosis/symptom? @ -Postop hypotension Acute, or Chronic, or Acute on Chronic? @ -Acute Uncomplicated (without systemic symptoms) or Complicated (systemic symptoms)? @ -Complicated Side effects of treatment? @ -[No] Exacerbation, Progression, or Severe Exacerbation? @ -[No] Poses a threat to life or bodily function? How? (Chest pain, [place], [place], pneumonia, PE, COPD, DKA, ARF, appy, cholecystitis, CVA, Diverticulitis, Homicidal, Suicidal, threat to staff... and all critical care pts) @ -Hypotension, if hypotension persists, can cause decreased perfusion to end or markie, especially depending on process causing hypotension - Lab Data Result diagrams: 05/18/24 02:54 05/18/24 02:54 Lab Results 05/16/24 05/16/24 05/16/24 Range/Units 21:36 21:36 21:36 WBC 10.5 (3.8-10.6) k/uL RBC 3.54 L (3.80-5.40) m/uL Hgb 10.0 L (11.4-16.0) gm/dL Hct 31.0 L (34.0-46.0) % MCV 87.5 (80.0-100.0) fL MCH 28.2 (25.0-35.0) pg MCHC 32.2 (31.0-37.0) g/dL RDW 15.0 (11.5-15.5) % Plt Count 275 (150-450) k/uL MPV 8.0 Neutrophils % 68 % Lymphocytes % 21 % Monocytes % 6 % Eosinophils % 3 % Basophils % 1 % Neutrophils # 7.1 (1.3-7.7) k/uL Lymphocytes # 2.2 (1.0-4.8) k/uL Monocytes # 0.6 (0-1.0) k/uL Eosinophils # 0.3 (0-0.7) k/uL Basophils # 0.1 (0-0.2) k/uL Hypochromasia Slight PT 10.0 (10.0-12.5) sec INR 0.9 (<1.2) D-Dimer 2.46 H (<0.60) mg/L FEU Sodium 136 L (137-145) mmol/L Potassium 4.4 (3.5-5.1) mmol/L Chloride 108 H (98-107) mmol/L Carbon Dioxide 22 (22-30) mmol/L Anion Gap 6 mmol/L BUN 29 H (7-17) mg/dL Creatinine 1.19 H (0.52-1.04) mg/dL Est GFR (CKD-EPI)AfAm 55 (>60 ml/min/1.73 sqM) Est GFR (CKD-EPI)NonAf 47 (>60 ml/min/1.73 sqM) Glucose 96 (74-99) mg/dL Plasma Lactic Acid Vignesh (0.7-2.0) mmol/L Calcium 9.2 (8.4-10.2) mg/dL Total Bilirubin 0.4 (0.2-1.3) mg/dL AST 21 (14-36) U/L ALT 11 (4-34) U/L Alkaline Phosphatase 83 (38-126) U/L Troponin I (0.000-0.034) ng/mL NT-Pro-B Natriuret Pep 122 pg/mL Total Protein 5.4 L (6.3-8.2) g/dL Albumin 3.0 L (3.5-5.0) g/dL TSH 1.690 (0.465-4.680) mIU/L 05/16/24 05/16/24 Range/Units 21:36 21:36 WBC (3.8-10.6) k/uL RBC (3.80-5.40) m/uL Hgb (11.4-16.0) gm/dL Hct (34.0-46.0) % MCV (80.0-100.0) fL MCH (25.0-35.0) pg MCHC (31.0-37.0) g/dL RDW (11.5-15.5) % Plt Count (150-450) k/uL MPV Neutrophils % % Lymphocytes % % Monocytes % % Eosinophils % % Basophils % % Neutrophils # (1.3-7.7) k/uL Lymphocytes # (1.0-4.8) k/uL Monocytes # (0-1.0) k/uL Eosinophils # (0-0.7) k/uL Basophils # (0-0.2) k/uL Hypochromasia PT (10.0-12.5) sec INR (<1.2) D-Dimer (<0.60) mg/L FEU Sodium (137-145) mmol/L Potassium (3.5-5.1) mmol/L Chloride (98-107) mmol/L Carbon Dioxide (22-30) mmol/L Anion Gap mmol/L BUN (7-17) mg/dL Creatinine (0.52-1.04) mg/dL Est GFR (CKD-EPI)AfAm (>60 ml/min/1.73 sqM) Est GFR (CKD-EPI)NonAf (>60 ml/min/1.73 sqM) Glucose (74-99) mg/dL Plasma Lactic Acid Vignesh 0.7 (0.7-2.0) mmol/L Calcium (8.4-10.2) mg/dL Total Bilirubin (0.2-1.3) mg/dL AST (14-36) U/L ALT (4-34) U/L Alkaline Phosphatase (38-126) U/L Troponin I <0.012 (0.000-0.034) ng/mL NT-Pro-B Natriuret Pep pg/mL Total Protein (6.3-8.2) g/dL Albumin (3.5-5.0) g/dL TSH (0.465-4.680) mIU/L Disposition Clinical Impression: Postoperative hypotension Disposition: ADMITTED IP TO THIS HOSP
[2024-05-16 22:11] LABS: INR 0.9 (<1.2)
[2024-05-16 22:13] LABS: NT-Pro-B-Type Natriuretic Pept 122 pg/mL
[2024-05-17] MEDS: SODIUM CHLORIDE 0.9% 1,000 ML IV STA (00:50)
--- NOTE | 2024-05-17 02:19 | CT ---
EXAM: CT Angiography Chest With Intravenous Contrast CLINICAL HISTORY: Shortness of breath, lightheadedness, recent surge TECHNIQUE: Axial computed tomographic angiography images of the chest with intravenous contrast. CTDI is 81.5 mGy and DLP is 1639.8 mGy-cm. This CT exam was performed using one or more of the following dose reduction techniques: automated exposure control, adjustment of the mA and/or kV according to patient size, and/or use of iterative reconstruction technique. MIP reconstructed images were created and reviewed. COMPARISON: No relevant prior studies available. FINDINGS: Artifacts: Scatter artifact likely related to patient's body habitus. Pulmonary arteries: There is only minimal heterogeneous enhancement of the proximal pulmonary arteries, presumed related to inflow from the IVC. The examination is near nondiagnostic for evaluation of potential pulmonary embolism. No obvious large thrombus in the main, right proximal main or left proximal main pulmonary arteries. The segmental and subsegmental branches are of nondiagnostic quality. Aorta: The thoracic aorta is normal in caliber. No dissection or aneurysm. Lungs: No focal airspace consolidation. Minimal curvilinear atelectatic changes at the lung bases. Pleural space: Unremarkable. No significant effusion. No pneumothorax. Heart: The cardiac chambers are mildly prominent. No pericardial effusion. Bones/joints: No acute fracture. No dislocation. Soft tissues: No significant overlying soft tissue abnormality, accounting for partial exclusion of the superficial soft tissues secondary to patient body habitus. Lymph nodes: Unremarkable. No enlarged lymph nodes. IMPRESSION: 1. There is only minimal heterogeneous enhancement of the proximal pulmonary arteries, presumed related to inflow from the IVC. The examination is near nondiagnostic for evaluation of potential pulmonary embolism. No obvious large thrombus in the main, right proximal main or left proximal main pulmonary arteries. The segmental and subsegmental branches are of nondiagnostic quality. 2. No focal airspace consolidation. Minimal curvilinear atelectatic changes at the lung bases. No pleural effusion or pneumothorax.
[2024-05-17] MEDS ORDERED: NALOXONE 0.4 MG/ML 1 ML VIAL IV PRN (06:05)
[2024-05-17] MEDS: SODIUM CHLORIDE 0.9% 1,000 ML IV SCH (07:24)
[2024-05-17] MEDS: FAMOTIDINE 20 MG TAB PO SCH (10:04)
[2024-05-17 10:35] LABS: Appearance,Urine Clear (Clear); Bacteria,Urine Occasional /hpf; Bilirubin,Urine Negative (Negative); Blood,Urine Small (Negative); Color,Urine Colorless; Glucose,Urine (UA) Negative (Negative); Ketones,Urine Negative (Negative); Leukocyte Esterase,Urine Moderate (Negative); Mucus,Urine Rare /hpf; Nitrite,Urine Negative (Negative); Protein,Urine Negative (Negative); RBC,Urine 1 /hpf (0-5); Specific Gravity,Urine 1.018 (1.001-1.035); Squamous Epithelial Cell,Urine 1 /hpf (0-4); Urobilinogen,Urine <2.0 mg/dL (<2.0); WBC,Urine 3 /hpf (0-5)
[2024-05-17] MEDS ORDERED: NON FORMULARY DRUG (Linaclotide [Linzess] 145 MCG Capsule) PO PRN (10:52)
[2024-05-17] MEDS ORDERED: bisacodyL 5 MG TABLET.DR PO PRN (10:52)
[2024-05-17] MEDS ORDERED: SYMBICORT 80-4.5 MCG INHALER INHALATION PRN (10:52)
[2024-05-17] MEDS ORDERED: SIMETHICONE 40 MG/0.6 ML DROPS 2,000 MG/30 ML BOTTLE PO PRN (10:52)
[2024-05-17] MEDS ORDERED: DULoxetine HCL 60 MG CAPSULE.DR PO PRN (10:52)
[2024-05-17] MEDS: HYDROcodone/APAP 10-325MG 1 EACH TAB PO PRN (11:33)
[2024-05-17] MEDS: HEPARIN SODIUM,PORCINE 5,000 UNIT/ML 1 ML VIAL SQ SCH (11:34)
--- NOTE | 2024-05-17 12:16 | P.HPIM ---
History of Present Illness H&P Date: 05/17/24 This is a 69-year-old female with medical history significant for asthma, gastroesophageal reflux disease, hypertension, GI bleed, sleep apnea with CPAP use, heart murmur, gastric bypass, esophageal dilation, anxiety. Patient returns to the hospital after being discharged yesterday secondary to decreased blood pressure. Patient states that she took her [place] 10 at home for pain and was feeling dizzy and lightheaded pressure was 100/50 repeat was 90/40 so patient came into the ER for further evaluation. She was also reporting some shortness of breath but no chest pain. Patient has lower extremity edema has not had any fever or chills. Patient underwent panniculectomy on May [address] Packer. Initial workup reveals white blood cell count 10.5, hemoglobin 10.0, sodium of 136, BUN of 29, creatinine 1.19, troponin level is normal and a proBNP is negative. Patient's D-dimer was significantly elevated at 2.46. Urinalysis was done and not suggestive of any type of infection. Chest CT angiography reveals minimal heterogenic enhancement in the proximal pulmonary arteries presume related to inflow from the IVC the examination is near nondiagnostic for evaluation of potential pulmonary embolism there is no obvious large thrombus in the main right proximal main or left proximal main pulmonary arteries. There is no pleural effusion or pneumothorax. Patient was supposed to follow up at the bariatric center yesterday on 05/16/24. She was instructed to not remove her abdominal binder on discharge until follow up. REVIEW OF SYSTEMS: CONSTITUTIONAL: No fever, no malaise, no fatigue. HEENT: No recent visual problems or hearing problems. Denied any sore throat. CARDIOVASCULAR: No chest pain, orthopnea, PND, no palpitations, no syncope. PULMONARY: No shortness of breath, no cough, no hemoptysis. GASTROINTESTINAL: No diarrhea, no nausea, no vomiting, no abdominal pain. NEUROLOGICAL: No headaches, no weakness, no numbness. HEMATOLOGICAL: Denies any bleeding or petechiae. GENITOURINARY: Denies any burning micturition, frequency, or urgency. MUSCULOSKELETAL/RHEUMATOLOGICAL: Denies any joint pain, swelling, or any muscle pain. ENDOCRINE: Denies any polyuria or polydipsia. The rest of the 14-point review of systems is negative. PHYSICAL EXAMINATION: GENERAL: The patient is alert and oriented x3, not in any acute distress. Well developed, well nourished. HEENT: Pupils are round and equally reacting to light. EOMI. No scleral icterus. No conjunctival pallor. Normocephalic, atraumatic. No pharyngeal erythema. No thyromegaly. CARDIOVASCULAR: S1 and S2 present. No murmurs, rubs, or gallops. PULMONARY: Chest is clear to auscultation, no wheezing or crackles. Abdominal binder in place and multiple LAKSHMI drains with serosanguineous drainage. ABDOMEN: Soft, nontender, nondistended, normoactive bowel sounds. No palpable organomegaly. MUSCULOSKELETAL: No joint swelling or deformity. EXTREMITIES: No cyanosis, clubbing, or pedal edema. NEUROLOGICAL: Gross neurological examination did not reveal any focal deficits. SKIN: No rashes. Assessment and plan -Recent panniculectomy 32+ lbs on May [address] Packer, as well as open repair of umbilical hernia -History of hypertension currently hypotensive likely secondary to recent surgery and narcotic pain use patient is maintained on amlodipine which was discontinued prior admission as well as irbesartan hydrochlorothiazide and aldactone patient has not been taking them. Patient will be hydrated. -Acute Kidney injury, mild likely prerenal secondary to hypotension expected to improve with normal saline infusion -Peripheral edema rule out DVT patient has elevated D Dimer -History of asthma with no acute exacerbation -History of gastroesophageal reflux disease -Hx of gastric bypass -History of rheumatoid arthritis -History of sleep apnea with CPAP use -History of anemia, -History of anxiety -Peripheral neuropathy/Chronic pain syndrome on cymbalta PRN. Morbid obesity GI prophylaxis DVT prophylaxis Full Code Plan Consult Dr. Packer Continue IV fluids Continue to hold blood pressure medications Resume norco for pain management Monitor intake and output Monitor intake and output from LAKSHMI drains strict and record Check venous doppler, no evidence of pulmonary embolism on CTA. Patient medically could be discharged home if cleared by surgery. The impression and plan of care has been dictated by Lita Mcmanus, Nurse Practitioner as directed. Dr. Austen MD I have performed a history and physical examination and medical decision making of this patient, discussed the same with the dictator, and agree with the dictators assessment and plan as written, documented as a scribe. Based on total visit time, I have performed more than 50% of this visit. Past Medical History Past Medical History: Asthma, GERD/Reflux, GI Bleed, Hypertension, Rheumatoid Arthritis (RA), Sleep Apnea/CPAP/BIPAP Additional Past Medical History / Comment(s): HEART MURMUR, ANEMIA, hiatal hernia, and chronic back pain, does use CPAP. 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 History of Any Multi-Drug Resistant Organisms: None Reported Past Surgical History: Bariatric Surgery, Cholecystectomy, Joint Replacement, Tonsillectomy, Tubal Ligation, Uterine Ablation Additional Past Surgical History / Comment(s): BILATERAL TOTAL KNEE REPLACEMENTS, D&C, upper endoscopy with esophageal dilatation X2, gastric bypass. Colonoscopy 2020. Past Anesthesia/Blood Transfusion Reactions: Previous Problems w/ Anesthesia, Family History of Problems w/ Anesthesia Additional Past Anesthesia/Blood Transfusion Reaction / Comment(s): Pt states awoke during surgery attributed to Sleep Apnea. Past Psychological History: Anxiety Smoking Status: Never smoker Past Alcohol Use History: Rare Past Drug Use History: None Reported - Past Family History Mother Family Medical History: Diabetes Mellitus Brother(s) Family Medical History: Seizure Disorder Additional Family Medical History / Comment(s): from seizure in 2020. Father Family Medical History: Cancer Additional Family Medical History / Comment(s): LIVER CANCER, paternal aunt had breast cancer and an uncle had colon cancer. Son(s) Family Medical History: Seizure Disorder Additional Family Medical History / Comment(s): from seizure Sister(s) Family Medical History: Deep Vein Thrombosis (DVT) Medications and Allergies Home Medications Medication Instructions Recorded Confirmed Type allopurinoL [Zyloprim] 100 mg PO DAILY 04/09/24 05/16/24 History rOPINIRole HCL [Requip] 0.25 mg PO HS 04/09/24 05/16/24 History methocarbamoL 500 mg PO TID PRN 05/09/24 05/16/24 History Omeprazole [PriLOSEC] 40 mg PO DAILY #30 cap 05/15/24 05/16/24 Rx Ondansetron Odt [Zofran Odt] 4 mg PO Q8HR PRN #9 tab 05/15/24 05/16/24 Rx Simethicone 40 mg/0.6 ml Drops 40 mg PO PCHS PRN #30 ml 05/15/24 05/16/24 Rx [Mylicon Drops] bisacodyL [Dulcolax] 5 mg PO DAILY PRN #10 tab 05/15/24 05/16/24 Rx DULoxetine HCL [Cymbalta] 60 mg PO DAILY PRN 05/16/24 05/16/24 History Ergocalciferol [Vitamin D2 (1250 1,250 mcg PO MADRIGAL 05/16/24 05/16/24 History Mcg = 52310 Iu)] Fluticasone Propion/Salmeterol 1 puff INHALATION RT-BID PRN 05/16/24 05/16/24 History [Advair 250-50 Diskus] HYDROcodone/APAP 10-325MG [[place] 1 tab PO QID PRN 05/16/24 05/16/24 History 10-325] Linaclotide [Linzess] 145 mcg PO DAILY PRN 05/16/24 05/16/24 History Allergies Allergy/AdvReac Type Severity Reaction Status Date / Time nickel Allergy Unknown Rash/Hives Verified 05/16/24 21:05 gabapentin AdvReac Hallucinati Verified 05/16/24 21:05 ons Physical Exam Vitals: Vital Signs Temp Pulse Pulse Resp BP BP Pulse Ox 05/17/24 09:24 98.2 F 83 18 129/68 05/17/24 07:56 98.2 F 78 16 111/52 99 05/17/24 06:58 86 20 114/68 98 05/17/24 05:10 85 18 108/66 96 05/17/24 03:31 82 20 100/56 96 05/17/24 00:54 97 18 107/63 99 05/16/24 21:38 87 18 114/68 97 05/16/24 19:37 97.9 F 110 H 18 133/68 98 Intake and Output 05/16/24 05/17/24 05/17/24 22:59 06:59 14:59 Intake Total 50 Balance 50 Intake: Oral 50 Other: # Voids 1 Weight 136.985 kg Results CBC & Chem 7: 05/16/24 21:36 05/16/24 21:36 Labs: Abnormal Lab Results - Last 24 Hours (Table) 05/16/24 05/16/24 05/16/24 Range/Units 21:36 21:36 21:36 RBC 3.54 L (3.80-5.40) m/uL Hgb 10.0 L (11.4-16.0) gm/dL Hct 31.0 L (34.0-46.0) % D-Dimer 2.46 H (<0.60) mg/L FEU Sodium 136 L (137-145) mmol/L Chloride 108 H (98-107) mmol/L BUN 29 H (7-17) mg/dL Creatinine 1.19 H (0.52-1.04) mg/dL Total Protein 5.4 L (6.3-8.2) g/dL Albumin 3.0 L (3.5-5.0) g/dL Urine Blood (Negative) Ur Leukocyte Esterase (Negative) Urine Bacteria (None) /hpf Urine Mucus (None) /hpf 05/17/24 Range/Units 10:12 RBC (3.80-5.40) m/uL Hgb (11.4-16.0) gm/dL Hct (34.0-46.0) % D-Dimer (<0.60) mg/L FEU Sodium (137-145) mmol/L Chloride (98-107) mmol/L BUN (7-17) mg/dL Creatinine (0.52-1.04) mg/dL Total Protein (6.3-8.2) g/dL Albumin (3.5-5.0) g/dL Urine Blood Small H (Negative) Ur Leukocyte Esterase Moderate H (Negative) Urine Bacteria Occasional H (None) /hpf Urine Mucus Rare H (None) /hpf Assessment and Plan Time with Patient: Less than 30
--- NOTE | 2024-05-17 12:33 | US ---
EXAMINATION TYPE: US venous doppler duplex LE DATE OF EXAM: 05/17/2024 12:05 PM COMPARISON: CLINICAL INDICATION: Female, 69 years old with history of elevated D Dimer; Heparin shots. Leg pain. SIDE PERFORMED: Bilateral TECHNIQUE: The lower extremity deep venous system is examined utilizing real time linear array sonog windy with graded compression, doppler sonography and color-flow sonography. VESSELS IMAGED: Common Femoral Vein Deep Femoral Vein Greater Saphenous Vein *- Left not seen Femoral Vein Popliteal Vein Small Saphenous Vein * Proximal Calf Veins- Suboptimal bilaterally (* superficial vessels) Limited due to patient body habitus and pain tolerance for compressions Right Leg: Negative for acute DVT Left Leg: Negative for acute DVT IMPRESSION: Grayscale, color doppler, spectral doppler imaging performed of the deep veins of the lo wer extremities. There is normal flow, compressibility, vascular waveforms.
--- NOTE | 2024-05-17 13:41 | NM ---
EXAMINATION TYPE: NM pul vent and perfuse DATE OF EXAM: 05/17/2024 CLINICAL INDICATION: Female, 69 years old with history of Hypotension, Elevated d-dimer. R/O PE; COMPARISON: 05/16/2024 TECHNIQUE: Utilizing inhalation of 62 mCi Tc 99m DTPA aerosol and intravenous injection of 4.9 mCi o f Tc 99m MAA, ventilation and perfusion images are acquired post injection in multiple projections. FINDINGS: Normal radiotracer distribution is noted in the lungs. There is no evidence of mismatched defects. Radiotracer clumping possbily secondary to mixing artifact vs copd changes. IMPRESSION: No evidence for PE
[2024-05-18] MEDS: ACETAMINOPHEN TAB 325 MG TAB PO PRN (01:13)
[2024-05-18] MEDS: PANTOPRAZOLE 40 MG TABLET PO SCH (06:44)
[2024-05-18 08:27] VITALS: BP 103/60; RESP 18; TEMP 98.1
[2024-05-18 09:25] LABS: Basophils # (A) 0.06 X 10*3/uL (0.00-0.10); Basophils % (A) 0.6 %; Eosinophils # (A) 0.33 X 10*3/uL (0.04-0.35); Eosinophils % (A) 3.3 %; HCT 28.3 % (37.2-46.3); Lymphocytes # (A) 2.79 X 10*3/uL (0.90-5.00); Lymphocytes % (A) 27.9 %; MCH 27.1 pg (27.0-32.0); MCHC 31.8 g/dL (32.0-37.0); MCV 85.2 FL (80.0-97.0); Mean Platelet Volume 10.6 FL (9.5-12.2); NRBC Per 100 WBC 0 X 10*3/uL (0.00-0.01); Neutrophils # (A) 5.78 X 10*3/uL (1.80-7.70); Neutrophils % (A) 57.8 %; Platelet Count 269 X 10*3/uL (140-440); RBC 3.32 X 10*6/uL (4.10-5.20); RDW 15.3 % (11.5-14.5)
[2024-05-18 09:40] LABS: BUN/Creat Ratio 21.08 Ratio (12.00-20.00); Blood Urea Nitrogen 25.3 mg/dL (9.0-27.0); Calcium 8.6 mg/dL (8.7-10.3); Carbon Dioxide 20.5 mmol/L (21.6-31.8); Chloride 106 mmol/L (96-109); Glucose 107 mg/dL (70-110); Magnesium 1.6 mg/dL (1.5-2.4); Potassium 4.2 mmol/L (3.5-5.5); Sodium 138 mmol/L (135-145)
[2024-05-18] MEDS ORDERED: Magnesium Replacement Protocol 1 EACH MISC MISCELLANE PRN (09:58)
[2024-05-18] MEDS: allopurinoL 100 MG TAB PO SCH (10:30)
[2024-05-18] MEDS: FAMOTIDINE 20 MG TAB PO SCH (10:30)
--- NOTE | 2024-05-18 10:35 | P.GSCN ---
History of Present Illness Consult date: 05/18/24 Reason for Consult: Hypotension, recent panniculectomy History of present illness: This is a 69-year-old female who underwent recent panniculectomy with Dr. Packer last week. Patient was admitted for relative hypotension. Patient does take blood pressure medication. She states she feels better this morning. Past Medical History Past Medical History: Asthma, GERD/Reflux, GI Bleed, Hypertension, Rheumatoid Arthritis (RA), Sleep Apnea/CPAP/BIPAP Additional Past Medical History / Comment(s): HEART MURMUR, ANEMIA, hiatal hernia, and chronic back pain, does use CPAP. 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 History of Any Multi-Drug Resistant Organisms: None Reported Past Surgical History: Bariatric Surgery, Cholecystectomy, Joint Replacement, Tonsillectomy, Tubal Ligation, Uterine Ablation Additional Past Surgical History / Comment(s): BILATERAL TOTAL KNEE REPLACEMENTS, D&C, upper endoscopy with esophageal dilatation X2, gastric bypass. Colonoscopy 2020. Past Anesthesia/Blood Transfusion Reactions: Previous Problems w/ Anesthesia, Family History of Problems w/ Anesthesia Additional Past Anesthesia/Blood Transfusion Reaction / Comm: Pt states awoke during surgery attributed to Sleep Apnea. Past Psychological History: Anxiety Smoking Status: Never smoker Past Alcohol Use History: Rare Past Drug Use History: None Reported - Past Family History Mother Family Medical History: Diabetes Mellitus Brother(s) Family Medical History: Seizure Disorder Additional Family Medical History / Comment(s): from seizure in 2020. Father Family Medical History: Cancer Additional Family Medical History / Comment(s): LIVER CANCER, paternal aunt had breast cancer and an uncle had colon cancer. Son(s) Family Medical History: Seizure Disorder Additional Family Medical History / Comment(s): from seizure Sister(s) Family Medical History: Deep Vein Thrombosis (DVT) Medications and Allergies Home Medications Medication Instructions Recorded Confirmed Type allopurinoL [Zyloprim] 100 mg PO DAILY 04/09/24 05/16/24 History rOPINIRole HCL [Requip] 0.25 mg PO HS 04/09/24 05/16/24 History methocarbamoL 500 mg PO TID PRN 05/09/24 05/16/24 History Omeprazole [PriLOSEC] 40 mg PO DAILY #30 cap 05/15/24 05/16/24 Rx Ondansetron Odt [Zofran Odt] 4 mg PO Q8HR PRN #9 tab 05/15/24 05/16/24 Rx Simethicone 40 mg/0.6 ml Drops 40 mg PO PCHS PRN #30 ml 05/15/24 05/16/24 Rx [Mylicon Drops] bisacodyL [Dulcolax] 5 mg PO DAILY PRN #10 tab 05/15/24 05/16/24 Rx DULoxetine HCL [Cymbalta] 60 mg PO DAILY PRN 05/16/24 05/16/24 History Ergocalciferol [Vitamin D2 (1250 1,250 mcg PO MADRIGAL 05/16/24 05/16/24 History Mcg = 54416 Iu)] Fluticasone Propion/Salmeterol 1 puff INHALATION RT-BID PRN 05/16/24 05/16/24 History [Advair 250-50 Diskus] HYDROcodone/APAP 10-325MG [[place] 1 tab PO QID PRN 05/16/24 05/16/24 History 10-325] Linaclotide [Linzess] 145 mcg PO DAILY PRN 05/16/24 05/16/24 History Allergies Allergy/AdvReac Type Severity Reaction Status Date / Time nickel Allergy Unknown Rash/Hives Verified 05/16/24 21:05 gabapentin AdvReac Hallucinati Verified 05/16/24 21:05 ons Surgical - Exam Vital Signs Temp Pulse Resp BP Pulse Ox 97.9 F 110 H 18 133/68 98 05/16/24 19:37 05/16/24 19:37 05/16/24 19:37 05/16/24 19:37 05/16/24 19:37 - General well developed, well nourished, no distress - Eyes PERRL - ENT normal pinna - Neck no masses - Respiratory normal expansion - Cardiovascular Rhythm: regular - Abdomen Incision site is clean dry intact. LAKSHMI drains have serous output. Abdomen: soft, non tender Results - Labs 05/18/24 02:54 05/18/24 02:54 Abnormal Lab Results - Last 24 Hours (Table) 05/17/24 05/18/24 05/18/24 Range/Units 10:12 02:54 02:54 RBC 3.32 L (4.10-5.20) X 10*6/uL Hgb 9.0 L (12.0-15.0) g/dL Hct 28.3 L (37.2-46.3) % MCHC 31.8 L (32.0-37.0) g/dL RDW 15.3 H (11.5-14.5) % Carbon Dioxide 20.5 L (21.6-31.8) mmol/L Est GFR (CKD-EPI) 50 L (>=60) BUN/Creatinine Ratio 21.08 H (12.00-20.00) Ratio Calcium 8.6 L (8.7-10.3) mg/dL Urine Blood Small H (Negative) Ur Leukocyte Esterase Moderate H (Negative) Urine Bacteria Occasional H (None) /hpf Urine Mucus Rare H (None) /hpf Diabetes panel 05/18/24 Range/Units 02:54 Sodium 138 (135-145) mmol/L Potassium 4.2 (3.5-5.5) mmol/L Chloride 106 (96-109) mmol/L Carbon Dioxide 20.5 L (21.6-31.8) mmol/L BUN 25.3 (9.0-27.0) mg/dL Creatinine 1.2 (0.6-1.5) mg/dL Glucose 107 (70-110) mg/dL Calcium 8.6 L (8.7-10.3) mg/dL Calcium panel 05/18/24 Range/Units 02:54 Calcium 8.6 L (8.7-10.3) mg/dL Pituitary panel 05/18/24 Range/Units 02:54 Sodium 138 (135-145) mmol/L Potassium 4.2 (3.5-5.5) mmol/L Chloride 106 (96-109) mmol/L Carbon Dioxide 20.5 L (21.6-31.8) mmol/L BUN 25.3 (9.0-27.0) mg/dL Creatinine 1.2 (0.6-1.5) mg/dL Glucose 107 (70-110) mg/dL Calcium 8.6 L (8.7-10.3) mg/dL Adrenal panel 05/18/24 Range/Units 02:54 Sodium 138 (135-145) mmol/L Potassium 4.2 (3.5-5.5) mmol/L Chloride 106 (96-109) mmol/L Carbon Dioxide 20.5 L (21.6-31.8) mmol/L BUN 25.3 (9.0-27.0) mg/dL Creatinine 1.2 (0.6-1.5) mg/dL Glucose 107 (70-110) mg/dL Calcium 8.6 L (8.7-10.3) mg/dL Assessment and Plan Assessment: Patient's incision is dry intact. Her hypotension is likely is due to blood pressure medication. She will be closely observed.
[2024-05-18] MEDS: MAGNESIUM SULFATE-D5W PMX 1 GM in DEXTROSE/WATER 1 100ML.BAG IVPB SCH (12:58)
[2024-05-18] MEDS: ALBUTEROL NEBULIZED 2.5 MG/3 ML INHALATION PRN (14:11)
[2024-05-18 14:20] VITALS: PULSE 75
--- NOTE | 2024-05-20 15:09 | P.DS ---
Providers Date of admission: 05/17/24 06:10 Attending physician: Makenzie Mack MD Consults: 05/17/24 16:19 Consult Physician Routine Consulting Provider: Suzette Packer Consult Reason/Comments: recent panniculectomy Do you want consulting provider notified?: Yes Primary care physician: [facility] Course: Final Diagnosis -Recent panniculectomy 32+ lbs on May [address] Packer, as well as open repair of umbilical hernia -History of hypertension currently hypotensive likely secondary to recent surgery and narcotic pain use patient is maintained on amlodipine which was discontinued prior admission as well as irbesartan hydrochlorothiazide and aldactone patient has not been taking them. Patient will be hydrated. -Acute Kidney injury, mild likely prerenal secondary to hypotension expected to improve with normal saline infusion -Peripheral edema rule out DVT patient has elevated D Dimer -History of asthma with no acute exacerbation -History of gastroesophageal reflux disease -Hx of gastric bypass -History of rheumatoid arthritis -History of sleep apnea with CPAP use -History of anemia, -History of anxiety -Peripheral neuropathy/Chronic pain syndrome on cymbalta PRN. Morbid obesity Discharge Disposition Patient stable for discharge home. Patient instructed to follow-up with Dr. Packer in the office in 1 week. Patient will continue off of her oral blood pressure medication. Hospital Course This is a 69-year-old female with medical history significant for asthma, gastroesophageal reflux disease, hypertension, GI bleed, sleep apnea with CPAP use, heart murmur, gastric bypass, esophageal dilation, anxiety. Patient returns to the hospital after being discharged yesterday secondary to decreased blood pressure. Patient states that she took her [place] 10 at home for pain and was feeling dizzy and lightheaded pressure was 100/50 repeat was 90/40 so patient came into the ER for further evaluation. She was also reporting some shortness of breath but no chest pain. Patient has lower extremity edema has not had any fever or chills. Patient underwent panniculectomy on May [address] Packer. Initial workup reveals white blood cell count 10.5, hemoglobin 10.0, sodium of 136, BUN of 29, creatinine 1.19, troponin level is normal and a proBNP is negative. Patient's D-dimer was significantly elevated at 2.46. Urinalysis was done and not suggestive of any type of infection. Chest CT angiography reveals minimal heterogenic enhancement in the proximal pulmonary arteries presume related to inflow from the IVC the examination is near nondiagn ostic for evaluation of potential pulmonary embolism there is no obvious large thrombus in the main right proximal main or left proximal main pulmonary arteries. There is no pleural effusion or pneumothorax. Patient was supposed to follow up at the bariatric center yesterday on 05/16/24. She was instructed to not remove her abdominal binder on discharge until follow up. Was given hydration and monitored overnight. She has no evidence for any DVT or pulmonary embolism. Blood pressure has improved patient is no longer having any dizziness or lightheadedness. She will be discharged home and is instructed to continue continue with the abdominal binder and follow-up with Dr. Packer in the office. Please see medication reconciliation for a list of current medications. Thank you for allowing us to participate in the care of this patient. The impression and plan of care has been dictated by Lita Mcmanus, Nurse Practitioner as directed. Dr. Austen MD I have performed a history and physical examination and medical decision making of this patient, discussed the same with the dictator, and agree with the dictators assessment and plan as written, documented as a scribe. Based on total visit time, I have performed more than 50% of this visit. Patient Condition at Discharge: Fair Plan - Discharge Summary Discharge Rx Participant: No New Discharge Prescriptions: Continue bisacodyL [Dulcolax] 5 mg PO DAILY PRN #10 tab PRN Reason: Constipation Fluticasone Propion/Salmeterol [Advair 250-50 Diskus] 1 puff INHALATION RT- BID PRN PRN Reason: Shortness Of Breath Ergocalciferol [Vitamin D2 (1250 Mcg = 29247 Iu)] 1,250 mcg PO MADRIGAL rOPINIRole HCL [Requip] 0.25 mg PO HS allopurinoL [Zyloprim] 100 mg PO DAILY methocarbamoL 500 mg PO TID PRN PRN Reason: Muscle Spasm Simethicone 40 mg/0.6 ml Drops [Mylicon Drops] 40 mg PO PCHS PRN #30 ml PRN Reason: Gas Omeprazole [PriLOSEC] 40 mg PO DAILY #30 cap Ondansetron Odt [Zofran ODT] 4 mg PO Q8HR PRN #9 tab PRN Reason: Nausea Linaclotide [Linzess] 145 mcg PO DAILY PRN PRN Reason: Gi Upset HYDROcodone/APAP 10-325MG [[place] 10-325] 1 tab PO QID PRN PRN Reason: Pain DULoxetine HCL [Cymbalta] 60 mg PO DAILY PRN PRN Reason: Nerve Pain Discharge Medication List allopurinoL [Zyloprim] 100 mg PO DAILY 04/09/24 [History] rOPINIRole HCL [Requip] 0.25 mg PO HS 04/09/24 [History] methocarbamoL 500 mg PO TID PRN 05/09/24 [History] Omeprazole [PriLOSEC] 40 mg PO DAILY #30 cap 05/15/24 [Rx] Ondansetron Odt [Zofran ODT] 4 mg PO Q8HR PRN #9 tab 05/15/24 [Rx] Simethicone 40 mg/0.6 ml Drops [Mylicon Drops] 40 mg PO PCHS PRN #30 ml 05/15/24 [Rx] bisacodyL [Dulcolax] 5 mg PO DAILY PRN #10 tab 05/15/24 [Rx] DULoxetine HCL [Cymbalta] 60 mg PO DAILY PRN 05/16/24 [History] Ergocalciferol [Vitamin D2 (1250 Mcg = 66326 Iu)] 1,250 mcg PO MADRIGAL 05/16/24 [History] Fluticasone Propion/Salmeterol [Advair 250-50 Diskus] 1 puff INHALATION RT-BID PRN 05/16/24 [History] HYDROcodone/APAP 10-325MG [[place] 10-325] 1 tab PO QID PRN 05/16/24 [History] Linaclotide [Linzess] 145 mcg PO DAILY PRN 05/16/24 [History] Follow up Appointment(s)/Referral(s): Suzette Packer MD [STAFF PHYSICIAN] - 1-2 Days (Try to make appointment for tomorrow) Sedrick Mcneil DO [Primary Care Provider] - 1-2 days [place], [place] [NON-STAFF] - 1-2 Days Patient Instructions/Handouts: Hypotension (DC), Dizziness (ED) Discharge Disposition: HOME SELF-CARE
== END 2024-05-18 15:55 | disposition home or self-care (01) ==
LOC: EC 19:34 → 6NMEDSUR 05-17 06:10
PROVIDERS: ADMIT Internal Medicine; ATTEND Internal Medicine
DX: I95.81 Postprocedural hypotension (principal); N17.9 Acute kidney failure, unspecified; R79.89 Other specified abnormal findings of blood chemistry; J45.909 Unspecified asthma, uncomplicated; I10 Essential (primary) hypertension; G47.30 Sleep apnea, unspecified; K21.9 Gastro-esophageal reflux disease without esophagitis; M06.9 Rheumatoid arthritis, unspecified; G89.4 Chronic pain syndrome; G62.9 Polyneuropathy, unspecified; D64.9 Anemia, unspecified; R35.0 Frequency of micturition; R39.15 Urgency of urination; R60.0 Localized edema; F41.9 Anxiety disorder, unspecified; E66.01 Morbid (severe) obesity due to excess calories; Z68.42 Body mass index [BMI] 45.0-49.9, adult; Z79.51 Long term (current) use of inhaled steroids; Z79.899 Other long term (current) drug therapy; Z88.8 Allergy status to other drugs, medicaments and biological substances; Z91.048 Other nonmedicinal substance allergy status; Z87.19 Personal history of other diseases of the digestive system; Z98.84 Bariatric surgery status; Z98.890 Other specified postprocedural states
CPT/HCPCS: 96361 ×3; 96372 ×2; 96360; 99285; 36415; 94640; 93005; 85379; 83880; 80053; 80048; 83605; 83735; 84443; 84484; 85025 ×2; 85610; 81001; 93970; 71275; 78582; G0378 ×2; A9540; A9567; J1644 ×2; J3475; Q9967

== ENCOUNTER → 2024-05-19 | Outpatient (CLI) | payer MEDICARE, OTHER ==
--- NOTE | 2024-05-19 12:08 | P.BASOAP ---
Subjective Progress Note Date: 05/19/24 DATE OF SERVICE: 05/19/24 CHIEF COMPLAINT: Status post panniculectomy HISTORY OF PRESENT ILLNESS: Mar Del Castillo (White/Katelin) is a 69-year-old female status post gastric bypass 2012. She is 11 years out. She is status post panniculectomy of 32 pounds, 05/12/2024, 1 week out. She was discharged from the hospital less than 5 days ago and had return back to the hospital. Patient presents after being hospitalized for hypotension. She confirms she did not take her blood pressure medication by emergency room documentation. She had transient dizziness. Systolic blood pressure was 80s at home per discussion with patient. She reports since discharge from her most recent observation from the hospital, no further dizziness or symptomatic hypotension. Her daughter is at bedside. Patient was discharged home yesterday. At height of 5 feet 7.25 inches, her ideal body weight is 158 pounds. She comes in 320 pounds from 360 pounds 4 months ago. Her highest weight was 610 pounds. She has lost 290 pounds lifetime. Her body mass index highest was 95.0. Today her BMI is 50.1. Lifetime percent excess weight loss of 64%. She is 162 pounds overweight. PHYSICAL EXAM: VITAL SIGNS: Height 5 foot 7.25 inches, weight 320 pounds. BMI 50.1 Vital Signs Temp 98.1 F 05/19/24 11:07 Pulse 93 05/19/24 11:07 Resp 14 05/19/24 11:07 BP 106/64 05/19/24 11:07 Pulse Ox FiO2 Intake & Output 05/18/24 05/19/24 05/19/24 18:59 06:59 18:59 Weight 144.968 kg GENERAL: Well-developed in no acute distress. HEENT: No scleral icterus. Extraocular movements grossly intact. Hears conversational speech. No nasal drainage. NECK: Supple without lymphadenopathy. CHEST: Nonlabored respirations with equal bilateral excursions. CARDIOVASCULAR: Regular rate and regular rhythm. Distal 2+ pulses. ABDOMEN: Te-Humphrey drains serosanguineous and stripped at bedside. Dressing in the pubis was soaked. Dressings and LAKSHMI drains wet. Incision and dressing along the panniculectomy dry and intact. Minimal serosanguineous shadowing. Abdominal flaps are viable. LAKSHMI drain sites cleansed with ChloraPrep with replacement of Optifoam silver dressing. New abdominal binder repositioned over the abdomen. MUSCULOSKELETAL: No clubbing, cyanosis. Has 2+ bilateral pitting edema to the lower legs. NEURO: No focal or lateralizing signs. Cranial nerves 2 through 12 grossly within normal limits. PSYCH: Appropriate affect. Alert and oriented to person, place and time. SKIN: Good skin turgor. Well perfused. ASSESSMENT: 1. Chronic panniculitis 2. Hypotension 3. Body mass index of 95.0, initial to 52.7 4. Rheumatoid arthritis 5. Osteoarthritis of the lower back. 6. History of hypertensive heart disease. 7. Chronic pain syndrome 8. Gastroesophageal reflux disease 9. Morbid obesity due to excess calories 10. Asthma 11. Chronic obstructive pulmonary disorder 12. Obstructive sleep apnea 13. Anxiety disorder 14. Congestive heart failure 15. Hiatal hernia 16. Cholecystitis 17. Secondhand tobacco abuse exposure 18. Initial reducible umbilical hernia, 2 cm 19. Gout 20. Osteoarthritis of the knees. PLAN: 1. Patient advised to eat high salty foods to address moderate sodium loss recent hypotension. 2. Dressing changed at bedside. 3. Follow-up this Sunday for dressing changes. 4. Binder being changed with 2 new binders given to her. 5. Recommend high-protein intake over 60 g daily. Patient at risk for gout development and discussed. 6. Patient advised to no longer restart any of her antihypertensive medications Objective - Vital Signs Vital signs: Intake & Output 05/18/24 05/19/24 05/19/24 18:59 06:59 18:59 Weight 144.968 kg Assessment/Plan Plan: Date: Initial Weight: 160.163 kg Initial BMI: Current Weight: 144.968 kg Current BMI: Type of Surgery: Total Volume in Band: Previous Volume: Volume Removed: Volume Added: Band Size:
[2024-05-19 13:06] VITALS: BP 106/64; PULSE 93; RESP 14; TEMP 98.1; BMI 50.0
== END ==
LOC: BARWHC3 11:04
PROVIDERS: ATTEND Surgery Plastic and Reconstructive Surgery
DX: E66.01 Morbid (severe) obesity due to excess calories (principal); M79.3 Panniculitis, unspecified; I95.9 Hypotension, unspecified; M06.9 Rheumatoid arthritis, unspecified; M47.816 Spondylosis without myelopathy or radiculopathy, lumbar region; G89.4 Chronic pain syndrome; K21.9 Gastro-esophageal reflux disease without esophagitis; J44.89 Other specified chronic obstructive pulmonary disease; G47.33 Obstructive sleep apnea (adult) (pediatric); F41.9 Anxiety disorder, unspecified; I11.0 Hypertensive heart disease with heart failure; I50.9 Heart failure, unspecified; K44.9 Diaphragmatic hernia without obstruction or gangrene; M10.9 Gout, unspecified; K42.0 Umbilical hernia with obstruction, without gangrene; M17.0 Bilateral primary osteoarthritis of knee; K81.9 Cholecystitis, unspecified; Z77.22 Contact with and (suspected) exposure to environmental tobacco smoke (acute) (chronic); Z98.890 Other specified postprocedural states; Z91.09 Other allergy status, other than to drugs and biological substances; Z88.8 Allergy status to other drugs, medicaments and biological substances; Z68.43 Body mass index [BMI] 50.0-59.9, adult; Z79.899 Other long term (current) drug therapy; Z79.51 Long term (current) use of inhaled steroids
CPT/HCPCS: 99212

== ENCOUNTER → 2024-06-25 | Outpatient (CLI) | payer MEDICARE, OTHER ==
--- NOTE | 2024-06-25 10:02 | US ---
EXAMINATION TYPE: US abdomen limited DATE OF EXAM: 06/25/2024 COMPARISON: NONE CLINICAL INDICATION: Female, 69 years old with history of L76.34 POSTPROC SEROMA OF SKIN, SUBCU FOLLO WING OT; Post op surgery on 05/12/24 skin on belly removed for fluid. TECHNIQUE: Limited Grayscale imaging of the abdomen for fluid. FINDINGS: Anechoic fluid visualized at scar from RLQ to LLQ. IMPRESSION: Small pockets of fluid noted in the abdomen.
== END | disposition home or self-care (01) ==
LOC: RADUSWWP 08:53
PROVIDERS: ATTEND Surgery Plastic and Reconstructive Surgery
DX: L76.34 Postprocedural seroma of skin and subcutaneous tissue following other procedure (principal)
CPT/HCPCS: 76705

== ENCOUNTER → 2024-08-27 | Outpatient (CLI) | payer MEDICARE, OTHER ==
[2024-08-27 15:17] LABS: Partial Thromboplastin Time 23.8 sec (22.0-30.0); Prothrombin Time 10.5 sec (10.0-12.5)
[2024-08-27 19:21] LABS: HCT 39.6 % (37.2-46.3); HGB 12.4 g/dL (12.0-15.0); MCH 26.4 pg (27.0-32.0); MCHC 31.3 g/dL (32.0-37.0); MCV 84.4 FL (80.0-97.0); Mean Platelet Volume 10.8 FL (9.5-12.2); NRBC Per 100 WBC 0 X 10*3/uL (0.00-0.01); Platelet Count 231 X 10*3/uL (140-440); RBC 4.69 X 10*6/uL (4.10-5.20); RDW 15.9 % (11.5-14.5); WBC 9.29 X 10*3/uL (4.50-10.00)
[2024-08-27 19:25] LABS: ALT 11 U/L (8-44); AST 25 U/L (13-35); Albumin/Globulin Ratio 1.54 Ratio (1.60-3.17); Alkaline Phosphatase 98 U/L (41-126); Blood Urea Nitrogen 22.2 mg/dL (9.0-27.0); Calcium 9.8 mg/dL (8.7-10.3); Carbon Dioxide 25.5 mmol/L (21.6-31.8); Chloride 105 mmol/L (96-109); Globulin 2.6 g/dL (1.6-3.3); Glucose 98 mg/dL (70-110); Potassium 5.3 mmol/L (3.5-5.5); Sodium 141 mmol/L (135-145); Total Bilirubin 0.3 mg/dL (0.3-1.2); Total Protein 6.6 g/dL (6.2-8.2)
== END | disposition home or self-care (01) ==
LOC: LABPAT 13:29
PROVIDERS: ATTEND Orthopaedic Surgery
CPT/HCPCS: 80053; 83036; 85027; 85610; 85730; 87070; 93005

== ENCOUNTER 2024-09-07 22:19 | Emergency (ER) | payer MEDICARE, OTHER ==
[2024-09-07 22:23] VITALS: TEMP 98.2
[2024-09-07 23:01] LABS: Basophils % (A) 0 %; Eosinophils # (A) 0.2 k/uL (0-0.7); Eosinophils % (A) 2 %; HCT 36.1 % (34.0-46.0); HGB 11.4 gm/dL (11.4-16.0); Lymphocytes # (A) 4.5 k/uL (1.0-4.8); Lymphocytes % (A) 39 %; MCH 26.5 pg (25.0-35.0); MCHC 31.6 g/dL (31.0-37.0); MCV 83.8 fL (80.0-100.0); Mean Platelet Volume 8.3; Monocytes # (A) 0.6 k/uL (0-1.0); Monocytes % (A) 6 %; Neutrophils # (A) 5.9 k/uL (1.3-7.7); Neutrophils % (A) 52 %; Platelet Count 289 k/uL (150-450); RBC 4.31 m/uL (3.80-5.40); RDW 15.8 % (11.5-15.5); WBC 11.5 k/uL (3.8-10.6)
[2024-09-07] MEDS: ACETAMINOPHEN TAB 500 MG TAB PO STA (23:10)
[2024-09-07] MEDS: ASPIRIN 81 MG PO STA (23:10)
--- NOTE | 2024-09-07 23:10 | ED ---
General Adult HPI <Buzz Aguilar - Last Filed: 09/08/24 04:13> - General Source: patient Mode of arrival: EMS Limitations: physical limitation <Yaquelin Stiles - Last Filed: 09/09/24 16:34> - General Chief complaint: Recheck/Abnormal Lab/Rx Stated complaint: bp dropping Time Seen by Provider: 09/07/24 22:26 - History of Present Illness Initial comments: This is a pleasant 69-year-old female past medical history of asthma, GERD, prior GI bleed, hypertension, panniculectomy this past April presenting for hypotension. Patient states that she was going to bed this evening when she noticed pain in her right shoulder, this patient did her to take her blood pressure which was noted to be 80/40. About an hour later she noticed radiation of the pain towards her jaw and rechecked her blood pressure and was noted to be 7/40 and on repeat check blood pressure was 70/40 prompting patient to present to the emergency department. Patient states that her symptoms have since resolved, with the exception of some tingling along the right side of her jaw, otherwise denies any lightheadedness, dizziness, headaches, changes in vision, slurred speech, numbness, weakness, chest pain, shortness of breath, abdominal pain, nausea, vomiting, diarrhea, black or bloody stools, recent fevers or chills. Denies recent surgery travel or hospitalizations. Patient is a non- smoker. Patient does have a history of prior TIA otherwise no first-degree relatives with history TIA/CVA/ACS takes her blood pressure medications as prescribed, 10 mg of Norvasc every morning. Denies decreased food or fluid intake today. Took excedrin w/o ASA prior to arrival for her shoulder pain. (Yaquelin Stiles) - Related Data Home Medications Medication Instructions Recorded Confirmed allopurinoL [Zyloprim] 100 mg PO DAILY 04/09/24 09/05/24 rOPINIRole HCL [Requip] 0.25 mg PO HS 04/09/24 09/05/24 methocarbamoL 500 mg PO TID PRN 05/09/24 09/05/24 DULoxetine HCL [Cymbalta] 60 mg PO DAILY PRN 05/16/24 09/05/24 Ergocalciferol [Vitamin D2 (1250 1,250 mcg PO MADRIGAL 05/16/24 09/05/24 Mcg = 61181 Iu)] HYDROcodone/APAP 10-325MG [[place] 1 tab PO QID PRN 05/16/24 09/05/24 10-325] Linaclotide [Linzess] 145 mcg PO DAILY PRN 05/16/24 09/05/24 Omeprazole [PriLOSEC] 40 mg PO HS 07/02/24 09/05/24 Albuterol Inhaler [Ventolin Hfa 1 - 2 puff INHALATION Q6H PRN 09/05/24 09/05/24 Inhaler] Fluticasone/Umeclidin/Vilanter 1 inhalation INHALATION DAILY 09/05/24 09/05/24 [Trelegy Ellipta 100-62.5-25] Irbesartan/Hydrochlorothiazide 1 each PO DAILY 09/05/24 09/05/24 [Irbesartan-Hctz 300-12.5 mg Tb] Magnesium Oxide [Magnesium] 500 mg PO DAILY 09/05/24 09/05/24 amLODIPine 10 mg PO DAILY 09/05/24 09/05/24 Previous Rx's Medication Instructions Recorded bisacodyL [Dulcolax] 5 mg PO DAILY PRN #10 tab 05/15/24 Allergies Allergy/AdvReac Type Severity Reaction Status Date / Time nickel Allergy Unknown Rash/Hives Verified 09/07/24 22:20 gabapentin AdvReac Hallucinati Verified 09/07/24 22:20 ons Review of Systems ROS Other: All systems not noted in ROS Statement are negative. <Buzz Aguilar - Last Filed: 09/08/24 04:13> ROS Other: All systems not noted in ROS Statement are negative. Constitutional: Denies: fever, chills Eyes: Denies: vision change Respiratory: Denies: dyspnea Cardiovascular: Denies: chest pain, edema Gastrointestinal: Denies: abdominal pain, nausea, vomiting, diarrhea, melena, hematochezia Genitourinary: Denies: urgency Neurological: Denies: headache, weakness, numbness, vertigo <Yaquelin Stiles - Last Filed: 09/09/24 16:34> ROS Statement: Those systems with pertinent positive or pertinent negative responses have been documented in the HPI. Past Medical History Past Medical History: Asthma, GERD/Reflux, GI Bleed, Hypertension, Rheumatoid Arthritis (RA), Sleep Apnea/CPAP/BIPAP Additional Past Medical History / Comment(s): HEART MURMUR, ANEMIA, hiatal hernia, and chronic back pain, does use CPAP. 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 History of Any Multi-Drug Resistant Organisms: None Reported Past Surgical History: Bariatric Surgery, Cholecystectomy, Hernia Repair, Joint Replacement, Tonsillectomy, Tubal Ligation, Uterine Ablation Additional Past Surgical History / Comment(s): BILATERAL TOTAL KNEE REPLACEMENTS, D&C, upper endoscopy with esophageal dilatation X2, gastric bypass. Colonoscopy 2020., panni/umbilical hernia 05/12/24 Past Anesthesia/Blood Transfusion Reactions: Previous Problems w/ Anesthesia, Family History of Problems w/ Anesthesia Additional Past Anesthesia/Blood Transfusion Reaction / Comment(s): Pt states awoke during surgery attributed to Sleep Apnea. Past Psychological History: Anxiety Smoking Status: Never smoker Past Alcohol Use History: None Reported Past Drug Use History: None Reported - Past Family History Mother Family Medical History: Diabetes Mellitus Brother(s) Family Medical History: Seizure Disorder Additional Family Medical History / Comment(s): from seizure in 2020. Father Family Medical History: Cancer Additional Family Medical History / Comment(s): LIVER CANCER, paternal aunt had breast cancer and an uncle had colon cancer. Son(s) Family Medical History: Seizure Disorder Additional Family Medical History / Comment(s): from seizure Sister(s) Family Medical History: Deep Vein Thrombosis (DVT) <Yaquelin Stiles - Last Filed: 09/09/24 16:34> General Exam Limitations: physical limitation <EnglishAyquelin - Last Filed: 09/09/24 16:34> - General Exam Comments Initial Comments: PE: CONSTITUTIONAL: No apparent distress, well appearing SKIN: Warm, dry, no jaundice, hives or petechiae EYES: Pupils are equally round, extraocular movements intact without nystagmus, clear conjunctiva, non-icteric sclera HENT: Normocephalic, atraumatic, moist mucus membranes, oropharynx clear without exudates NECK: , Full range of motion, normal appearance PULMONARY: Clear to auscultation without wheezes, rhonchi, or rales, normal excursion, no accessory muscle use and no stridor CARDIOVASCULAR: Regular rate, rhythm, normal S1 and S2. No appreciated murmurs, rubs or gallops. Strong 2+ radial pulses and dorsalis pedis pulses with intact distal perfusion. No lower extremity edema GASTROINTESTINAL: Soft, active bowel sounds throughout, non-tender, non- distended, no palpable masses, no rebound or guarding. No hepatosplenomegaly MUSCULOSKELETAL: Extremities have no gross deformity, no edema, redness, or swelling. No calf swelling NEUROLOGIC:_a/o x 3, GCS 15, normal mentation and speech. Moves all extremities x 4 without motor or sensory deficit, cranial nerves: II (visual ferrell without defects), III, IV and (extraocular movements are intact, pupils are equal with normal reaction to light), V (intact facial sensation and jaw opening), VII (no facial droop), IX and X (normal palate movement, midline uvula, normal voice), XI (symmetrical shoulder shrug and lateral head rotation against resistance), XII (midline tongue protrusion). Motor strength is 5/5 in all extremities. No abnormal movements. Normal muscle tone. Sensation to light touch is intact bilaterally. No cerebellar signs ([id number], [id number], normal, of note he also nuno exam on right lower extremity is limited by patient's chronic right hip pain) PSYCHIATRIC:_normal mood and affect, thought process is clear and linear (Yaquelin Stiles) Course Vital Signs 09/07/24 09/07/24 09/07/24 22:20 23:13 23:30 Temperature 98.2 F Pulse Rate 95 82 Pulse Rate [ 90 Sitting] Pulse Rate [ 82 Standing] Pulse Rate [ 85 Supine] Respiratory 18 12 Rate Blood Pressure 134/71 129/74 Blood Pressure 127/70 [Sitting] Blood Pressure 129/74 [Standing] Blood Pressure 127/67 [Supine] O2 Sat by Pulse 100 99 Oximetry 09/08/24 09/08/24 09/08/24 00:30 01:00 02:01 Temperature Pulse Rate 80 78 82 Pulse Rate [ Sitting] Pulse Rate [ Standing] Pulse Rate [ Supine] Respiratory 16 14 16 Rate Blood Pressure 128/68 130/75 118/72 Blood Pressure [Sitting] Blood Pressure [Standing] Blood Pressure [Supine] O2 Sat by Pulse 99 99 99 Oximetry 09/08/24 05:01 Temperature Pulse Rate 82 Pulse Rate [ Sitting] Pulse Rate [ Standing] Pulse Rate [ Supine] Respiratory 18 Rate Blood Pressure 118/74 Blood Pressure [Sitting] Blood Pressure [Standing] Blood Pressure [Supine] O2 Sat by Pulse 98 Oximetry EKG Findings - EKG Comments: EKG Findings:: Sinus rhythm, rate 95 bpm, RI interval 197 ms, QRS duration 92 ms, QT/QTc 352/405 ms, normal axis, no ST elevations or depressions, no arrhythmia, compared to EKG performed on 08/27/2024, no significant changes from prior <Yaquelin Stiles - Last Filed: 09/09/24 16:34> Medical Decision Making - Lab Data Result diagrams: 09/07/24 22:57 09/07/24 22:57 <Buzz Aguilar - Last Filed: 09/08/24 04:13> - Lab Data Result diagrams: 09/07/24 22:57 09/07/24 22:57 <Yaquelin Stiles - Last Filed: 09/09/24 16:34> - Medical Decision Making Patient has a signout pending the CT of the chest. I reviewed the study. The radiologist has interpreted the study. The interpretation does appear to be limited somewhat by the contrast which is not optimal. There does not appear to be large pulmonary embolism but it is impossible to exclude small PE. The patient is feeling better after fluids. She is asymptomatic. I discussed admission to have VQ scan, but at this point the patient states she is feeling better. Go home at this point. She does agree to return if she has any chest symptoms or further issues related to blood pressure. (Buzz Aguilar) Was pt. sent in by a medical professional or institution (, PA, NATUROPATHIC PHYSICIAN, urgent care, hospital, or fpc...) When possible be specific @ -No Did you speak to anyone other than the patient for history (EMS, parent, family, police, friend...)? What history was obtained from this source @ -No Did you review nursing and triage notes (agree or disagree)? Why? @ -I reviewed and agree with nursing and triage notes Were old charts reviewed (outside hosp., previous admission, EMS record, old EKG, old radiological studies, urgent care reports/EKG's, fpc records)? Report findings @ -Medical records reviewed, reviewed old EKG, additionally reviewed results of VQ scan from hospitalization in April which was negative for PE, when patient had presented to the emergency department in April for similar symptoms D-dimer was elevated 2.46, CT PE study was nondiagnostic so VQ scan was obtained which was negative for PE Differential Diagnosis (chest pain, altered mental status, abdominal pain women, abdominal pain men, vaginal bleeding, weakness, fever, dyspnea, syncope, headache, dizziness, GI bleed, back pain, seizure, CVA, palpatations, mental health, musculoskeletal)? Differential diagnosis remains broad however top considerations include valvular disease, PE, ACS, medication side effect, dehydration, anemia, infection, erroneous blood pressure reading, vasoagal response 2/2 pain this is not an all- inclusive list EKG interpreted by me (3pts min.). @ -As above X-rays interpreted by me (1pt min.). @ -None done CT interpreted by me (1pt min.). @ - U/S interpreted by me (1pt. min.). @ -None done What testing was considered but not performed or refused? (CT, X-rays, U/S, labs)? Why? @ -None What meds were considered but not given or refused? Why? @ -None Did you discuss the management of the patient with other professionals (professionals i.e. , PA, NATUROPATHIC PHYSICIAN, lab, RT, psych nurse, social work therapist, shovel oiler, teacher, special officer, transplant case manager)? Give summary @ -No Was smoking cessation discussed for >3mins.? @ -No Was critical care preformed (if so, how long)? @ -No Were there social determinants of health that impacted care today? How? (Homeles sness, low income, unemployed, alcoholism, drug addiction, transportation, low edu. Level, literacy, decrease access to med. care, long-term, rehab)? @ -No Was there de-escalation of care discussed even if they declined (Discuss DNR or withdrawal of care, Hospice)? @ -No What co-morbidities impacted this encounter? (DM, HTN, Smoking, COPD, CAD, Cancer, CVA, ARF, Chemo, Hep., AIDS, mental health diagnosis, sleep apnea, morbid obesity)? Obesity, HTN Was patient admitted / discharged? Hospital course, mention meds given and route, prescriptions, significant lab abnormalities, going to OR and other pe rtinent info. @ - This is a pleasant 69 y/o female PMH panniculectmy, HTN, presenting today for hypotension at home and right shoulder and jaw pain. Symptoms essentially resolved on arrival, BP 134/71 here with appropriately sized cuff, HR 95. Exam shows well appearing, pleasant 69 y/o female in NAD. No focal neurologic deficits, pain reproducible to palpation right posterior shoulder blade without swelling, LCTAB, 2+ pulses in all 4 extremities. Discussed with patient obtaining orthostats, tylenol, ASA for pain control and concern for atypical CP (though low suspicion for ACS based on story and normal EKG), labs. Pt agreeable with POC. D Dimer elevated, CT PE study ordered. Labs otherwise reassuring. Updated patient to findings and plan for CT, pt agreeable with POC. Case signed out to oncoming physician, Dr. Aguilar please see his note for additional details of care. Undiagnosed new problem with uncertain prognosis? @ -No Drug Therapy requiring intensive monitoring for toxicity (Heparin, Nitro, Insulin, Cardizem)? @ -No Were any procedures done? @ -No Diagnosis/symptom? @Right shoulder pain Acute, or Chronic, or Acute on Chronic? @ -Acute Uncomplicated (without systemic symptoms) or Complicated (systemic symptoms)? @ -complicated Side effects of treatment? @ -No Exacerbation, Progression, or Severe Exacerbation? @ -No Poses a threat to life or bodily function? How? (Chest pain, USA, AL, pneumonia, PE, COPD, DKA, ARF, appy, cholecystitis, CVA, Diverticulitis, Homicidal, Suicidal, threat to staff... and all critical care pts) @ -Unlikely (Yaquelin Stiles) - Lab Data Lab Results 09/07/24 09/07/24 09/07/24 Range/Units 22:57 22:57 22:57 WBC 11.5 H (3.8-10.6) k/uL RBC 4.31 (3.80-5.40) m/uL Hgb 11.4 (11.4-16.0) gm/dL Hct 36.1 (34.0-46.0) % MCV 83.8 (80.0-100.0) fL MCH 26.5 (25.0-35.0) pg MCHC 31.6 (31.0-37.0) g/dL RDW 15.8 H (11.5-15.5) % Plt Count 289 (150-450) k/uL MPV 8.3 Neutrophils % 52 % Lymphocytes % 39 % Monocytes % 6 % Eosinophils % 2 % Basophils % 0 % Neutrophils # 5.9 (1.3-7.7) k/uL Lymphocytes # 4.5 (1.0-4.8) k/uL Monocytes # 0.6 (0-1.0) k/uL Eosinophils # 0.2 (0-0.7) k/uL Basophils # 0.0 (0-0.2) k/uL PT 10.1 (10.0-12.5) sec INR 0.9 (<1.2) APTT 25.4 (22.0-30.0) sec D-Dimer (<0.60) mg/L FEU Sodium 135 L (137-145) mmol/L Potassium 4.9 (3.5-5.1) mmol/L Chloride 107 (98-107) mmol/L Carbon Dioxide 20 L (22-30) mmol/L Anion Gap 8 mmol/L BUN 25 H (7-17) mg/dL Creatinine 1.13 H (0.52-1.04) mg/dL Est GFR (CKD-EPI)AfAm 58 (>60 ml/min/1.73 sqM) Est GFR (CKD-EPI)NonAf 51 (>60 ml/min/1.73 sqM) Glucose 94 (74-99) mg/dL Calcium 9.0 (8.4-10.2) mg/dL Magnesium 2.0 (1.6-2.3) mg/dL Total Bilirubin 0.7 (0.2-1.3) mg/dL AST 29 (14-36) U/L ALT 12 (4-34) U/L Alkaline Phosphatase 83 (38-126) U/L Troponin I (0.000-0.034) ng/mL NT-Pro-B Natriuret Pep 46 pg/mL Total Protein 6.9 (6.3-8.2) g/dL Albumin 3.9 (3.5-5.0) g/dL Lipase 78 (23-300) U/L 09/07/24 09/07/24 09/08/24 Range/Units 22:57 22:57 01:42 WBC (3.8-10.6) k/uL RBC (3.80-5.40) m/uL Hgb (11.4-16.0) gm/dL Hct (34.0-46.0) % MCV (80.0-100.0) fL MCH (25.0-35.0) pg MCHC (31.0-37.0) g/dL RDW (11.5-15.5) % Plt Count (150-450) k/uL MPV Neutrophils % % Lymphocytes % % Monocytes % % Eosinophils % % Basophils % % Neutrophils # (1.3-7.7) k/uL Lymphocytes # (1.0-4.8) k/uL Monocytes # (0-1.0) k/uL Eosinophils # (0-0.7) k/uL Basophils # (0-0.2) k/uL PT (10.0-12.5) sec INR (<1.2) APTT (22.0-30.0) sec D-Dimer 3.26 H (<0.60) mg/L FEU Sodium (137-145) mmol/L Potassium (3.5-5.1) mmol/L Chloride (98-107) mmol/L Carbon Dioxide (22-30) mmol/L Anion Gap mmol/L BUN (7-17) mg/dL Creatinine (0.52-1.04) mg/dL Est GFR (CKD-EPI)AfAm (>60 ml/min/1.73 sqM) Est GFR (CKD-EPI)NonAf (>60 ml/min/1.73 sqM) Glucose (74-99) mg/dL Calcium (8.4-10.2) mg/dL Magnesium (1.6-2.3) mg/dL Total Bilirubin (0.2-1.3) mg/dL AST (14-36) U/L ALT (4-34) U/L Alkaline Phosphatase (38-126) U/L Troponin I <0.012 <0.012 (0.000-0.034) ng/mL NT-Pro-B Natriuret Pep pg/mL Total Protein (6.3-8.2) g/dL Albumin (3.5-5.0) g/dL Lipase (23-300) U/L Disposition Is patient prescribed a controlled substance at d/c from ED?: No <Buzz Aguilar - Last Filed: 09/08/24 04:13> <Yaquelin Stiles - Last Filed: 09/09/24 16:34> Clinical Impression: Hypotension Disposition: HOME SELF-CARE Condition: Good Instructions (If sedation given, give patient instructions): Hypotension (ED) Referrals: Sedrick Mcneil DO [Primary Care Provider] - 1-2 days
[2024-09-07 23:16] LABS: ALT 12 U/L (4-34); African American GFR (CKD) 58 (>60 ml/min/1.73 sqM); Anion Gap 8 mmol/L; Blood Urea Nitrogen 25 mg/dL (7-17); Carbon Dioxide 20 mmol/L (22-30); Chloride 107 mmol/L (98-107); Glucose 94 mg/dL (74-99); Lipase 78 U/L (23-300); Non-African American GFR(CKD) 51 (>60 ml/min/1.73 sqM); Sodium 135 mmol/L (137-145); Total Bilirubin 0.7 mg/dL (0.2-1.3)
[2024-09-07 23:18] LABS: INR 0.9 (<1.2); Prothrombin Time 10.1 sec (10.0-12.5)
[2024-09-07 23:19] LABS: Partial Thromboplastin Time 25.4 sec (22.0-30.0)
[2024-09-07 23:24] LABS: NT-Pro-B-Type Natriuretic Pept 46 pg/mL
[2024-09-07 23:26] LABS: Potassium 4.9 mmol/L (3.5-5.1)
[2024-09-07 23:27] LABS: AST 29 U/L (14-36); Albumin 3.9 g/dL (3.5-5.0); Alkaline Phosphatase 83 U/L (38-126); Total Protein 6.9 g/dL (6.3-8.2)
[2024-09-08] MEDS: SODIUM CHLORIDE 0.9% 1,000 ML IV ONE (00:37)
--- NOTE | 2024-09-08 01:24 | CT ---
EXAM: CT Angiography Chest With Intravenous Contrast CLINICAL HISTORY: ITS.REASON CT Reason: right scapular pain, elevated dimer, PE? TECHNIQUE: Axial computed tomographic angiography images of the chest with intravenous contrast. CTDI is 45.68 mGy and DLP is 1397.4 mGy-cm. This CT exam was performed using one or more of the following dose reduction techniques: automated exposure control, adjustment of the mA and/or kV according to patient size, and/or use of iterative reconstruction technique. MIP reconstructed images were created and reviewed. COMPARISON: No relevant prior studies available. FINDINGS: Pulmonary arteries: Unremarkable. No contrast in the pulmonary arteries, therefore evaluated for PE is limited. Aorta: No acute findings. No aortic aneurysm or dissection. Lungs: Unremarkable. No mass. No consolidation. Pleural space: Unremarkable. No focal consolidation, pleural effusion, or pneumothorax. Heart: Unremarkable. No cardiomegaly. No significant pericardial effusion. No evidence of RV dysfunction. Bones/joints: No acute fracture. No dislocation. Soft tissues: Unremarkable. Lymph nodes: Unremarkable. No enlarged lymph nodes. Stomach and bowel: Jacobo-en-Y gastric bypass. IMPRESSION: 1. No aortic aneurysm or dissection. 2. No focal consolidation, pleural effusion, or pneumothorax.
[2024-09-08 02:03] VITALS: PULSE 82
[2024-09-08 05:03] VITALS: BP 118/74; RESP 18
== END 2024-09-08 05:01 | disposition home or self-care (01) ==
LOC: EC 22:19
DX: I95.9 Hypotension, unspecified (principal); M25.511 Pain in right shoulder; I10 Essential (primary) hypertension; E66.9 Obesity, unspecified; R79.1 Abnormal coagulation profile; G89.29 Other chronic pain; M25.551 Pain in right hip; Z88.8 Allergy status to other drugs, medicaments and biological substances; Z98.84 Bariatric surgery status; Z79.899 Other long term (current) drug therapy
CPT/HCPCS: 36415 ×2; 93005; 85379; 83880; 80053; 83690; 83735; 84484 ×2; 85025; 85610; 85730; 71275; 99285; 96360; Q9967

== ENCOUNTER → 2024-09-08 | Outpatient (CLI) | payer MEDICARE, OTHER | END | disposition home or self-care (01) | LOC: LABPAT 14:42 | PROVIDERS: ATTEND Orthopaedic Surgery | DX: Z01.812 Encounter for preprocedural laboratory examination (principal); E11.9 Type 2 diabetes mellitus without complications; M16.11 Unilateral primary osteoarthritis, right hip; Z22.322 Carrier or suspected carrier of Methicillin resistant Staphylococcus aureus | CPT/HCPCS: 86850; 86900; 86901; 87070 ==

== ENCOUNTER 2024-09-12 07:38 | Day surgery (SDC) | payer MEDICARE, OTHER ==
[~2024-09-12 07:38] MED LIST changes: -LIDOCAINE 1% (10MG/ML) FOR IV START INTRADERMA PRN; +TRANEXAMIC 1,000 MG/100ML-NACL 1,000 MG in SALINE 1 100ML.BAG IV PRN; +TRANEXAMIC 1,000 MG/100ML-NACL 1,000 MG in SALINE 1 100ML.BAG IVPB PRN
[2024-09-12] MEDS: IV FLUID CONTINUATION 1,000 ML IV ONE ×2 (08:45→13:52)
[2024-09-12] MEDS: LACTATED RINGERS 1,000 ML IV SCH (08:57)
[2024-09-12] MEDS: ACETAMINOPHEN TAB 500 MG TAB PO PRN (09:03)
[2024-09-12] MEDS: oxyCODONE ER 10 MG TAB.ER.12H PO PRN (09:04)
[2024-09-12] MEDS: DOCUSATE 100 MG CAP PO PRN (09:04)
[2024-09-12] MEDS: ONDANSETRON 4 MG/2 ML VIAL IVP PRN (09:05)
[2024-09-12] MEDS: FAMOTIDINE 20 MG/2 ML VIAL IVP PRN (09:05)
[2024-09-12] MEDS: KETOROLAC 15 MG/ML 1 ML VIAL IVP PRN (09:05)
[2024-09-12] MEDS: DEXAMETHASONE SOD PHOSPHATE 10 MG/ML 1 ML VIAL IV PRN (09:06)
[2024-09-12] MEDS: MIDAZOLAM 2 MG/2 ML VIAL IV PRN (09:29)
[2024-09-12] MEDS ORDERED: MIDAZOLAM 2 MG/2 ML VIAL ONE (09:50)
[2024-09-12] MEDS ORDERED: PROPOFOL 10 MG/ML 20 ML VIAL IV ONE (09:50)
[2024-09-12] MEDS ORDERED: ROPIVACAINE 5 MG/ML 30 ML VIAL ONE (09:50)
[2024-09-12] MEDS ORDERED: ROCURONIUM 10 MG/ML (5 ML VIAL) IV ONE (09:50)
[2024-09-12] MEDS ORDERED: LIDOCAINE 1% INJ 10MG/ML (20 ML MDV) ONE (09:50)
[2024-09-12] MEDS ORDERED: SUCCINYLCHOLINE CHLORIDE 200 MG/10 ML VIAL IV ONE (09:50)
[2024-09-12] MEDS ORDERED: GLYCOPYRROLATE 0.2 MG/ML 2 ML VIAL ONE (09:50)
[2024-09-12] MEDS ORDERED: TRANEXAMIC 1,000 MG/100ML-NACL PREMIX BAG ONE (09:50)
[2024-09-12] MEDS ORDERED: fentaNYL (PF) 50 MCG/ML 2 ML AMP ONE (09:50)
[2024-09-12] MEDS ORDERED: NEOSTIGMINE 1 MG/ML 10 ML VIAL ONE (09:50)
[2024-09-12] MEDS: ceFAZolin 3 GM in SODIUM CHLORIDE 0.9% 100 ML IVPB PRN (09:57)
--- NOTE | 2024-09-12 10:16 | P.ANPRN ---
Procedure Note - Anesthesia - Nerve Block Performed Right Maldonado Single Time Out Performed: Yes ([id number]) Date of Procedure: 09/12/24 Procedure Start Time: Procedure Stop Time: Location of Patient: PreOp Indication: Acute Post-Operative Pain, Requested by Surgeon Specifically requested for management of pain by DrDeepa: Drew Parada Sedation Type: Sedate with meaningful contact maintained Preparation: Sterile Prep Position: Supine Catheter: None Needle Types: Pajunk Needle Gauge: 21 Ultrasound used to visualize needle placement: Yes Ultrasound used to observe medication spread: Yes Injectate: 0.5% Ropivacaine (see comment for volume) (30cc) Blood Aspirated: No Pain Paresthesia on Injection Noted: No Resistance on Injection: Normal Image Stored and Saved: Yes Events: Uneventful and Well Tolerated
[2024-09-12] MEDS: ROPIVACAINE/EPI/CLONIDINE/KET 50 ML SYRINGE MISCELLANE PRN (10:30)
--- NOTE | 2024-09-12 11:58 | P.OP ---
Date of Procedure: 09/12/24 Preoperative Diagnosis: 1. Severe right hip osteoarthritis 2. BMI 47 Postoperative Diagnosis: Same Procedure(s) Performed: Right direct anterior total hip arthroplasty Implants: 1. Sacha Trident II Acetabular Cup, Size #50 2. Sacha Insignia Size #3 Femoral Stem, High Offset 3. Dual Mobility OD38 mm, ID28 mm, +4 mm neck Anesthesia: MARIBEL, regional Surgeon: Drew Parada Event Management Consultant #1: Jaime Roca Estimated Blood Loss (ml): 300 IV fluids (ml): 800 Pathology: none sent Condition: stable Disposition: PACU Indications for Procedure: I had a long discussion with the patient in the office on the potential risks and complications of an elective total hip replacement through a direct anterior approach. Risks discussed include, but are certainly not limited to, risks from anesthesia, superficial infection requiring local wound care or antibiotics, deep delfino-prosthetic joint infection and the treatment required to eradicate infection, intraoperative fracture, postoperative periprosthetic fracture, damage to local blood vessels or nerves particularly the lateral femoral cutaneous nerve, delayed wound healing requiring local wound care or possibly surgical debridement, hip dislocation, leg length discrepancy, soft tissue irritation around the total hip implant such as iliopsoas tendinitis or trochanteric bursitis, wear and osteolysis from the implants, squeaking or audible noises, groin pain, thigh pain, heterotopic ossification, stiffness, aseptic loosening of the implants, dissatisfaction with surgical outcome, need for revision surgery, DVT, PE, swelling of the operative extremity, acute coronary event, stroke, failure to thrive, and possibly loss of life or limb. The patient understands that while these are the most common complications after an elective hip replacement there are certainly other less common complications possible. They were given ample time to ask questions regarding the potential complications of a hip replacement. Following our discussion the patient provided their verbal and written consent to go forward with an elective total hip replacement. Description of Procedure: The patient was identified in the preoperative holding area and the correct hip was marked with my initials. I reviewed the procedure and consent with the patient. All of their questions were answered. The patient was then brought back into the operating room by anesthesia. While on the [facility] anesthesia was administered by the anesthesia team. Preoperative antibiotics and tranexamic acid were also given. After the patient was under anesthesia I examined their ankles to determine their preoperative leg length discrepancy. The skin over the anterior aspect of the hip was shaved to remove hair over the site of planned incision. Both feet and ankles were padded with webril and boots for the [place] were applied. The patient was then carefully transferred onto the [place] table. A perineal post was immediately placed. The arms were placed on arm holders and were well-padded. Both boots were secured to the spars on the [place] table. The patient was positioned so that the pelvis was centered over the post. Nonsterile drapes were applied. A timeout was performed identifying the correct patient, operative extremity, and procedure. At this point fluoroscopy was brought in to take preoperative images of the pelvis and operative hip. Using the standing AP pelvis from the office as a template, a comparable image was obtained with fluoroscopy. A metallic bar was used to create a bi-ischial line for use as a reference to leg length adjustments during the procedure. Global offset was also measured on both the operative and nonoperative leg. Fluoroscopy was then brought out and a pre-scrub using a chlorhexidine scrub b guardado was performed. The operative limb was then prepped and draped in the standard sterile fashion. An anterior longitudinal incision was made lateral and distal to the ASIS. The skin and subcutaneous tissues were incised sharply. The underlying tensor fascia was identified and incised in its midportion. The fascia was dissected free from the underlying muscle and the muscle belly was retracted. A blunt tipped cobra retractor was placed over the superior neck under the muscle fibers of the gluteus minimus. The deep enveloping fascia of the tensor was incised. The anterior leash of vessels were then identified and cauterized. The fascia between the rectus and the capsule was then incised and the pre-capsular fat was excised. A second Cobra was placed inferior to the neck. The interval between the rectus and iliocapsularis and the hip capsule was developed and a retractor was placed carefully over the anterior rim of the acetabulum. A T-shaped anterior capsulotomy was performed. The superior capsular leaflet was left in place in the inferior capsular flap was excised. The Cobra retractors were placed intracapsularly. We then made a femoral neck osteotomy according to p reoperative and intraoperative templating and confirmed the level of the osteotomy using fluoroscopic imaging. The femoral head was removed, passed off to the back table, and sized. The superior capsular flap was excised. Retractors were placed circumferentially exposing the acetabulum. We then circumferentially debrided the acetabulum free of labrum and osteophytes. The pulvinar was removed to fully visualize the cotyloid fossa. We then sequentially reamed to achieve peripheral fit and excellent bleeding subchondral bone. The socket was thoroughly irrigated. The acetabular component was impacted into the appropriate position using fluoroscopy to guide version, inclination, and depth of insertion taking care to have a comparable image of the AP pelvis to the standing image taken in the office. An excellent press-fit was achieved and final position was confirmed using fluoroscopy. The press fit was augmented with bony cancellus dome screws. The liner was then impacted into the socket. Attention was then turned to the femur. The remnant dorsal lateral capsule was excised. The short external rotators were visible and protected. A bone hook was used to confirm appropriate translation of the trochanter away from the acetabulum. The leg was then extended and adducted and the bone hook was used to elevate the femur for broaching. A box osteotome and blunt tipped canal sound was then utilized to gain access to the femoral canal. We then sequentially broached the femur in appropriate anteversion until excellent torsional stability was achieved. The neck cut was brought flush to the trial broach with a calcar planar. A trial neck and head were then placed onto the broach and the hip was atraumatically reduced under direct visualization. External rotation to 90 was performed to assess stability. Fluoroscopy was brought in. An AP and lateral fluoroscopic image of the proximal femur was obtained to assess position and fill of the trial broach. An AP of the pelvis was then obtained and matched to the preoperative image taken. A bi-ischial bar was then placed and measurements were taken to assess changes in length and offset. The hip was then carefully dislocated, the proximal femur was exposed, and the trial implants were removed. The wound and proximal femur was thoroughly irrigated using sterile saline and pulsatile lavage. The final femoral implant was dispensed and gently tapped into place generating an excellent press-fit. The trunnion was cleansed and the final head was tapped into place to engage the Foster taper. The acetabulum was irrigated and visualized to be free of debris. The hip was carefully reduced. Stability was checked clinically with external rotation to 90 and there was no evidence of instability. Final fluoroscopic images were taken. The wound was then thoroughly irrigated and soaked with a dilute Betadine rinse for 3 minutes. 3 L of sterile saline was irrigated through the wound using pulsatile lavage. Local anesthetic cocktail was injected into the soft tissues around the surgical field. The wound was then closed in layers. A sterile dressing was placed over the surgical incision. The drapes were taken down and the patient was carefully transferred off of the [place] table. Following removal of the boots the leg lengths felt acceptable. The patient was then taken to recovery room having to lerated the procedure well. Jaime Roca PA-C was required as a skilled commercial loan assistant due to the complexity of surgery for patient positioning, draping, exposure, retraction, closure of wound and application of dressing. PLAN: The patient can weight-bear as tolerated on the operative extremity. DVT prophylaxis with aspirin 81 mg twice a day based on preoperative risk stratification. Due to patient body habitus and BMI, will place on doxycycline until incision heals. Physical therapy for gait training. Leave surgical dressing in place. Internal medicine for perioperative medical management.
--- NOTE | 2024-09-12 12:09 | FL ---
EXAMINATION TYPE: FL guidance operating room, XR Hip Limited RT DATE OF EXAM: 09/12/2024 11:50 AM COMPARISON: Pre Operative Images if available both CT/MRI or plain film CLINICAL INDICATION: Female, 69 years old with history of Right Hip-Ant; TECHNIQUE: FL guidance operating room, XR Hip Limited RT, multiple fluoroscopic images provided for p rocedure. Total fluoroscopy time: 40 seconds Total submitted images to PACS: 5 DAP: 5.5319 mGym2 Gycm2 uGym2 cGycm2 or equivalent. FINDINGS: Fluoroscopic images during internal fixation/arthroplasty demonstrate fixation hardware in appropriat e position. Hardware appears intact. No immediate complication identified. IMPRESSION: 1. No evidence for intraoperative complication. 2. Please see the operative/procedural note for further details. [facility], , 09/12/2024 12:06 PM
[2024-09-12] MEDS ORDERED: ACETAMINOPHEN TAB 325 MG TAB PO PRN (12:15)
[2024-09-12] MEDS ORDERED: hydrOXYzine pamoate 25 MG CAP PO PRN (12:15)
[2024-09-12] MEDS ORDERED: HYDROcodone/APAP 5-325MG 1 EACH TAB PO PRN (12:15)
[2024-09-12] MEDS ORDERED: NALOXONE 0.4 MG/ML 1 ML VIAL IV PRN (12:15)
[2024-09-12] MEDS ORDERED: MAGNESIUM HYDROXIDE 2,400 MG/30 ML CUP PO PRN (12:15)
[2024-09-12] MEDS ORDERED: HYDROmorphone 0.5 MG/0.5 ML SYRINGE IVP PRN ×2 (12:15)
[2024-09-12] MEDS ORDERED: ONDANSETRON 4 MG/2 ML VIAL IVP PRN (12:15)
[2024-09-12] MEDS: HYDROmorphone 0.5 MG/0.5 ML SYRINGE IVP PRN ×2 (12:26→21:41)
[2024-09-12] MEDS: HYDROcodone/APAP 10-325MG 1 EACH TAB PO PRN (15:33)
[2024-09-12] MEDS: SODIUM CHLORIDE 0.9% 1,000 ML IV SCH (15:35)
[2024-09-12] MEDS: ceFAZolin 3 GM in SODIUM CHLORIDE 0.9% 100 ML IVPB SCH (16:52)
[2024-09-12] MEDS ORDERED: bisacodyL 5 MG TABLET.DR PO PRN (16:59)
[2024-09-12] MEDS ORDERED: DULoxetine HCL 60 MG CAPSULE.DR PO PRN (16:59)
[2024-09-12] MEDS ORDERED: NON FORMULARY DRUG (Linaclotide [Linzess] 145 MCG Capsule) PO PRN (16:59)
[2024-09-12] MEDS ORDERED: ALBUTEROL NEBULIZED 2.5 MG/3 ML INHALATION PRN (16:59)
[2024-09-12] MEDS ORDERED: methocarbamoL 500 MG TAB PO PRN (16:59)
[2024-09-12] MEDS: IPRATROPIUM 0.5 MG/2.5 ML NEBU INHALATION SCH (20:09)
[2024-09-12] MEDS: SYMBICORT 80-4.5 MCG INHALER INHALATION SCH (20:09)
--- NOTE | 2024-09-12 20:54 | CONS ---
CONSULTATION REASON FOR CONSULTATION: Advice regarding asthma and other multiple medical issues, requested by Orthopedics. HISTORY OF PRESENT ILLNESS: This is a 69-year-old woman with a past medical history of asthma, hypertension, multiple other medical issues, underwent right total hip joint arthroplasty. There is no history of any fever, rigors, or chills. No history of headache, loss of consciousness, or seizures at this time. PAST MEDICAL HISTORY: Asthma, hypertension, rheumatoid arthritis. Rest of the history and rest of the chart is also reviewed. HOME MEDICATIONS: Reviewed include Requip, dose and rest of medications reviewed. ALLERGIES: Nickel, gabapentin. FAMILY HISTORY: History of cancer in the family. SOCIAL HISTORY: No history of smoking or alcohol intake. REVIEW OF SYSTEMS: A 14-point review of systems negative except as mentioned earlier. PHYSICAL EXAMINATION: VITAL SIGNS: Pulse is 71, blood pressure 143/70, respirations 16. HEENT: Conjunctivae normal. NECK: No JVD. CARDIOVASCULAR: S1, S2. RESPIRATIONS: Breath sounds diminished at the bases. No rhonchi. No crackles. ABDOMEN: Soft. LEGS: Status post surgery. NERVOUS SYSTEM: Nonfocal. LABORATORY DATA: Preop labs are reviewed. They are within normal limits. Creatinine 1.13. ASSESSMENT: 1. Status post right hip joint arthroplasty. 2. Asthma. 3. History of gastrointestinal bleed. 4. Hypertension. 5. Rheumatoid arthritis. 6. Chronic kidney disease, stage 3 possibly. 7. History of sleep apnea. 8. History of bariatric surgery. 9. Multiple complex medical issues. RECOMMENDATIONS: This is a 69-year-old woman, who presented after surgery. At this time, I recommend to continue current medications. Resume the home medications. DVT prophylaxis. Repeat labs. We will follow the patient closely. Further recommendations to follow. MMODL / IJN: [id number] /
[2024-09-12] MEDS: PANTOPRAZOLE 40 MG TABLET PO SCH (21:40)
[2024-09-12] MEDS: ASPIRIN 81 MG PO SCH (21:40)
[2024-09-12] MEDS: SENNOSIDES-DOCUSATE SODIUM 1 EACH TAB PO SCH (21:40)
[2024-09-13 08:09] LABS: African American GFR (CKD) 40 (>60 ml/min/1.73 sqM); Anion Gap 2 mmol/L; Blood Urea Nitrogen 29 mg/dL (7-17); Calcium 8.6 mg/dL (8.4-10.2); Carbon Dioxide 28 mmol/L (22-30); Chloride 106 mmol/L (98-107); Glucose 94 mg/dL (74-99); Non-African American GFR(CKD) 34 (>60 ml/min/1.73 sqM); Potassium 4.8 mmol/L (3.5-5.1); Sodium 136 mmol/L (137-145)
[2024-09-13 08:11] LABS: Basophils % (A) 0 %; Eosinophils % (A) 0 %; HCT 29.5 % (34.0-46.0); Hypochromasia Slight; Lymphocytes # (A) 1.9 k/uL (1.0-4.8); Lymphocytes % (A) 14 %; MCH 26.9 pg (25.0-35.0); MCHC 31.2 g/dL (31.0-37.0); MCV 86.3 fL (80.0-100.0); Mean Platelet Volume 8.9; Monocytes # (A) 0.7 k/uL (0-1.0); Monocytes % (A) 5 %; Neutrophils # (A) 10.9 k/uL (1.3-7.7); Neutrophils % (A) 80 %; Platelet Count 255 k/uL (150-450); RBC 3.42 m/uL (3.80-5.40); RDW 15.8 % (11.5-15.5); WBC 13.6 k/uL (3.8-10.6)
[2024-09-13 08:15] LABS: HGB 9.2 gm/dL (11.4-16.0)
--- NOTE | 2024-09-13 08:16 | P.PN ---
Subjective Progress Note Date: 09/13/24 Principal diagnosis: The patient is resting comfortably in their bed. A focused examination of the operative hip was performed. On inspection there is a clean-appearing dressing over the anterior hip with no drainage or strike through. There is mild swelling throughout the thigh. Femoral nerve function is intact. The patient is able to actively dorsiflex and plantarflex their ankle and toes. Sensation is intact to light touch throughout the foot. The foot is warm and well-perfused with brisk capillary refill. She is doing relatively well morning. No acute events per nursing. She has some discomfort in her hip but is otherwise doing well. Objective - Vital Signs Vital signs: Vital Signs Temp 97.9 F 09/13/24 01:14 Pulse 92 09/13/24 01:14 Resp 18 09/13/24 01:14 BP 110/59 09/13/24 01:14 Pulse Ox 99 09/13/24 01:14 FiO2 Intake & Output 09/12/24 09/13/24 09/13/24 18:59 06:59 18:59 Intake Total 1100 Output Total 300 Balance 800 Weight 136.2 kg Intake: IV 1100 Output: Estimated Blood Loss 300 Other: Voiding Method Bedside Commode # Voids 0 2 - Labs CBC & Chem 7: 09/13/24 06:30 Labs: Abnormal Lab Results - Last 24 Hours (Table) 09/13/24 Range/Units 06:30 Sodium 136 L (137-145) mmol/L BUN 29 H (7-17) mg/dL Creatinine 1.56 H (0.52-1.04) mg/dL Assessment and Plan Assessment: Postoperative day #1 status post direct anterior total hip arthroplasty Plan: 1. Weight bear as tolerated on the operative extremity, up with assistance and a walker 2. DVT prophylaxis with aspirin 81 mg BID 3. 2 doses of post operative antibiotics 4. Leave surgical dressing in place 5. Internal medicine for delfino-operative medical management 6. Physical therapy for gait training and mobilization 7. Dispo: I would like to see how the patient does with physical therapy this morning if she is comfortable and does well she can discharge home later today. If she needs another day in the hospital we will keep her until tomorrow. We al so discussed the possibility of needing rehab.
[2024-09-13] MEDS: FAMOTIDINE 20 MG TAB PO SCH (08:47)
[2024-09-13] MEDS: LOSARTAN 50 MG TAB PO SCH (08:47)
[2024-09-13] MEDS: allopurinoL 100 MG TAB PO SCH (08:47)
[2024-09-13] MEDS: amLODIPine 10 MG TAB PO SCH (08:48)
[2024-09-13] MEDS: MAGNESIUM OXIDE 400 MG TAB PO SCH (08:48)
[2024-09-13] MEDS: LOSARTAN-HCTZ 50-12.5 MG 1 EACH TAB PO SCH (08:53)
--- NOTE | 2024-09-14 05:11 | PN ---
PROGRESS NOTE DATE OF SERVICE: 09/13/2024 SUBJECTIVE: This is a 69-year-old woman, admitted after right hip arthroplasty, improving significantly. No chest pain. No palpitations. No fever. OBJECTIVE: VITAL SIGNS: Pulse is 86, blood pressure 103/51, respirations 18. CHEST: Clear to auscultation. CARDIOVASCULAR: S1, S2. ABDOMEN: Soft. NERVOUS SYSTEM: Nonfocal. LABORATORY DATA: Hemoglobin 9.2, creatinine 1.56. ASSESSMENT: 1. Status post right hip arthroplasty. 2. Asthma. 3. Elevated WBC, possibly reactive. 4. Anemia, normocytic, possibly chronic. 5. Chronic kidney disease, stage 3, possibly. 6. History of gastrointestinal bleed. 7. Hypertension. 8. Rheumatoid arthritis. 9. Sleep apnea. 10.History of bariatric surgery. 11.Multiple complex medical issues. RECOMMENDATIONS AND DISCUSSION: Recommend to continue current management and continue symptomatic treatment. I would recommend repeat labs in the morning to ensure stability. Otherwise, continue the current medications. Increase ambulation. DVT prophylaxis. Rest of the recommendations per Orthopedic Surgery. Further recommendations to follow. MMODL / IJN: [id number] /
[2024-09-14] MEDS: oxyCODONE-APAP 5-325MG 1 EACH TAB PO PRN (06:20)
--- NOTE | 2024-09-14 08:39 | P.PN ---
Subjective Patient was seen at bedside this morning. Her pain is improved since yesterday. She denies chest pain or shortness of breath. Objective - Vital Signs Vital signs: Vital Signs Temp 98.8 F 09/14/24 01:40 Pulse 82 09/14/24 01:40 Resp 17 09/14/24 01:40 BP 94/54 09/14/24 01:40 Pulse Ox 97 09/14/24 01:40 FiO2 Intake & Output 09/13/24 09/14/24 09/14/24 18:59 06:59 18:59 Other: Voiding Method Bedside Commode Bedside Commode # Voids 3 1 - Exam The patient is resting comfortably in their bed. A focused examination of the operative hip was performed. On inspection there is a clean-appearing dressing over the anterior hip with no drainage or strike through. There is mild s welling throughout the thigh. Femoral nerve function is intact. The patient is able to actively dorsiflex and plantarflex their ankle and toes. Sensation is intact to light touch throughout the foot. The foot is warm and well-perfused with brisk capillary refill. - Labs CBC & Chem 7: 09/13/24 06:30 09/13/24 06:30 Assessment and Plan Assessment: Postop day #2 status post direct anterior total hip arthroplasty Plan: Continue treatment as outlined yesterday. I think the patient would benefit from one additional day in the hospital so that she can have an additional ses ian with physical therapy tomorrow for discharging home.
[2024-09-14] MEDS: ERGOCALCIFEROL 1,250 MCG (50,000 IU) CAPSULE PO SCH (08:44)
[2024-09-14 09:52] LABS: BUN/Creat Ratio 17.86 Ratio (12.00-20.00); Calcium 8.2 mg/dL (8.7-10.3); Carbon Dioxide 24.6 mmol/L (21.6-31.8); Chloride 107 mmol/L (96-109); Glucose 90 mg/dL (70-110); Potassium 4.9 mmol/L (3.5-5.5); Sodium 139 mmol/L (135-145)
[2024-09-14 09:56] LABS: Basophils # (A) 0.05 X 10*3/uL (0.00-0.10); Basophils % (A) 0.5 %; Eosinophils # (A) 0.17 X 10*3/uL (0.04-0.35); Eosinophils % (A) 1.5 %; HCT 27.4 % (37.2-46.3); HGB 8.6 g/dL (12.0-15.0); Lymphocytes # (A) 2.58 X 10*3/uL (0.90-5.00); Lymphocytes % (A) 23.3 %; MCH 27.3 pg (27.0-32.0); MCHC 31.4 g/dL (32.0-37.0); Monocytes # (A) 1.29 X 10*3/uL (0.20-1.00); Monocytes % (A) 11.7 %; NRBC Per 100 WBC 0 X 10*3/uL (0.00-0.01); Neutrophils # (A) 6.94 X 10*3/uL (1.80-7.70); Neutrophils % (A) 62.6 %; Platelet Count 242 X 10*3/uL (140-440); RBC 3.15 X 10*6/uL (4.10-5.20); RDW 16.7 % (11.5-14.5); WBC 11.07 X 10*3/uL (4.50-10.00)
[2024-09-14] MEDS: DOXYCYCLINE 100 MG CAP PO SCH (11:56)
--- NOTE | 2024-09-15 01:36 | PN ---
PROGRESS NOTE DATE OF SERVICE: 09/14/2024 SUBJECTIVE: This is a 69-year-old woman was admitted after right hip arthroplasty, improving significantly. No chest pain. No palpitations. No fever. OBJECTIVE: VITAL SIGNS: Pulse is 91, blood pressure 100/58, respirations 19. CHEST: Clear to auscultation. CARDIOVASCULAR: S1, S2. ABDOMEN: Soft. NERVOUS SYSTEM: Nonfocal. LABORATORY DATA: Hemoglobin 8.6. ASSESSMENT: 1. Status post right hip arthroplasty. 2. Asthma. 3. Elevated WBC, possibly reactive. 4. Anemia, normocytic, possibly chronic. 5. Chronic kidney disease, stage 3, stable. 6. Multiple complex medical issues. RECOMMENDATIONS AND DISCUSSION: Recommend to continue current management and continue symptomatic treatment otherwise. Recommend repeat CBC and closely follow with Orthopedic Surgery. Recommend close followup with primary physician after discharge. DVT prophylaxis. Further recommendations to follow. MMODL / IJN: [id number] /
--- NOTE | 2024-09-15 07:48 | P.DS ---
Providers Date of admission: 09/12/2024 Attending physician: Drew Parada Consults: 09/12/24 12:15 Consult Physician Routine Consulting Provider: Kareem Lockwood Consult Reason/Comments: Postop right total hip arthroplasty medical management Do you want consulting provider notified?: Yes Primary care physician: [facility] [place] Course: The patient is very pleasant 69-year-old female who underwent a complicated total hip replacement. Following surgery she was transferred to the orthopedic floor. Postoperatively she did relatively well. She received 2 doses of postoperative antibiotics. Internal medicine saw her. She worked with physical therapy. She is seen on postoperative day #3 as well. She was cleared for discharge home with home healthcare pending one final session with physical therapy. Patient Condition at Discharge: Good Plan - Discharge Summary Discharge Rx Participant: No New Discharge Prescriptions: New Aspirin 81 mg PO BID #60 tab oxyCODONE-APAP 5-325MG [Percocet 5-325 mg] 1 tab PO Q6HR PRN #28 tab PRN Reason: Pain Sennosides-Docusate Sodium [Senokot-S] 1 tab PO BID PRN #60 tablet PRN Reason: Constipation Ondansetron [Zofran] 4 mg PO Q6HR PRN #30 tab PRN Reason: Nausea Doxycycline Monohydrate 100 mg PO BID #28 cap No Action bisacodyL [Dulcolax] 5 mg PO DAILY PRN #10 tab PRN Reason: Constipation Ergocalciferol [Vitamin D2 (1250 Mcg = 83445 Iu)] 1,250 mcg PO MADRIGAL Irbesartan/Hydrochlorothiazide [Irbesartan-Hctz 300-12.5 mg Tb] 1 each PO DAILY Magnesium Oxide [Magnesium] 500 mg PO DAILY Albuterol Inhaler [Ventolin Hfa Inhaler] 1 - 2 puff INHALATION Q6H PRN PRN Reason: Shortness Of Breath rOPINIRole HCL [Requip] 0.25 mg PO HS allopurinoL [Zyloprim] 100 mg PO DAILY methocarbamoL 500 mg PO TID PRN PRN Reason: Muscle Spasm Linaclotide [Linzess] 145 mcg PO DAILY PRN PRN Reason: Gi Upset HYDROcodone/APAP 10-325MG [Afton 10-325] 1 tab PO QID PRN PRN Reason: Pain DULoxetine HCL [Cymbalta] 60 mg PO DAILY PRN PRN Reason: Nerve Pain Omeprazole [PriLOSEC] 40 mg PO HS amLODIPine 10 mg PO DAILY Fluticasone/Umeclidin/Vilanter [Trelegy Ellipta 100-62.5-25] 1 inhalation INHALATION DAILY Discharge Medication List allopurinoL [Zyloprim] 100 mg PO DAILY 04/09/24 [History] rOPINIRole HCL [Requip] 0.25 mg PO HS 04/09/24 [History] methocarbamoL 500 mg PO TID PRN 05/09/24 [History] bisacodyL [Dulcolax] 5 mg PO DAILY PRN #10 tab 05/15/24 [Rx] DULoxetine HCL [Cymbalta] 60 mg PO DAILY PRN 05/16/24 [History] Ergocalciferol [Vitamin D2 (1250 Mcg = 89931 Iu)] 1,250 mcg PO MADRIGAL 05/16/24 [History] HYDROcodone/APAP 10-325MG [A[place]on 10-325] 1 tab PO QID PRN 05/16/24 [History] Linaclotide [Linzess] 145 mcg PO DAILY PRN 05/16/24 [History] Omeprazole [PriLOSEC] 40 mg PO HS 07/02/24 [History] Albuterol Inhaler [Ventolin Hfa Inhaler] 1 - 2 puff INHALATION Q6H PRN 09/05/24 [History] Fluticasone/Umeclidin/Vilanter [Trelegy Ellipta 100-62.5-25] 1 inhalation INHALATION DAILY 09/05/24 [History] Irbesartan/Hydrochlorothiazide [Irbesartan-Hctz 300-12.5 mg Tb] 1 each PO DAILY 09/05/24 [History] Magnesium Oxide [Magnesium] 500 mg PO DAILY 09/05/24 [History] amLODIPine 10 mg PO DAILY 09/05/24 [History] Aspirin 81 mg PO BID #60 tab 09/12/24 [Rx] Doxycycline Monohydrate 100 mg PO BID #28 cap 09/12/24 [Rx] Ondansetron [Zofran] 4 mg PO Q6HR PRN #30 tab 09/12/24 [Rx] Sennosides-Docusate Sodium [Senokot-S] 1 tab PO BID PRN #60 tablet 09/12/24 [Rx] oxyCODONE-APAP 5-325MG [Percocet 5-325 mg] 1 tab PO Q6HR PRN #28 tab 09/12/24 [Rx] Follow up Appointment(s)/Referral(s): Drew Parada MD [Medical Doctor] - 2 Weeks Activity/Diet/Wound Care/Special Instructions: 1. Weight-bear as tolerated on your operative extremity unless instructed otherwise. Use a walker or other assistive device to ambulate. 2. Leave surgical dressing in place. If your dressing becomes saturated with blood, there is drainage, or the dressing becomes loose please contact the office. 3. It is okay to shower with your surgical dressing, but do not submerge in water (no hot tubs, bath's, swimming etc.) 4. Take your blood clot prevention medication as prescribed (aspirin, Eliquis, Xarelto, and Plavix are commonly prescribed medications for blood clot prevention) 5. While taking Afton or Percocet for pain take a stool softener (Ex: Colace) and drink lots of water. 6. Keep all follow-up appointments as scheduled. You will usually be seen in 1-2 weeks following surgery. 7. Please contact the office with any questions or concerns [phone] Discharge Disposition: HOME WITH HOME HEALTH SERVICES
[2024-09-15 07:53] VITALS: BP 102/66; PULSE 92; RESP 18; TEMP 97.8
[2024-09-15 08:43] LABS: Basophils # (A) 0.05 X 10*3/uL (0.00-0.10); Basophils % (A) 0.5 %; Eosinophils # (A) 0.39 X 10*3/uL (0.04-0.35); Eosinophils % (A) 3.6 %; HCT 27.8 % (37.2-46.3); HGB 8.6 g/dL (12.0-15.0); Lymphocytes # (A) 3.07 X 10*3/uL (0.90-5.00); Lymphocytes % (A) 28.7 %; MCH 27.1 pg (27.0-32.0); MCHC 30.9 g/dL (32.0-37.0); MCV 87.7 FL (80.0-97.0); Mean Platelet Volume 11.2 FL (9.5-12.2); Monocytes # (A) 1.27 X 10*3/uL (0.20-1.00); Monocytes % (A) 11.9 %; NRBC Per 100 WBC 0 X 10*3/uL (0.00-0.01); Neutrophils # (A) 5.87 X 10*3/uL (1.80-7.70); Neutrophils % (A) 54.9 %; Platelet Count 248 X 10*3/uL (140-440); RBC 3.17 X 10*6/uL (4.10-5.20); RDW 16.5 % (11.5-14.5); WBC 10.69 X 10*3/uL (4.50-10.00)
== END 2024-09-15 11:10 | disposition home health service (06) ==
LOC: OR 07:38 → 4SSUR 14:48 → OR 09-15 11:10
PROVIDERS: ATTEND Orthopaedic Surgery
DX: M16.11 Unilateral primary osteoarthritis, right hip (principal)
CPT/HCPCS: 94760; 97161; 80048; 85025; 73501; 27130; J2250; J1100; J0690 ×2; J2405; J3490; J1885; J1171 ×2; 64999

== ENCOUNTER → 2024-11-01 | Outpatient (CLI) | payer MEDICARE, OTHER ==
[2024-11-01 12:44] LABS: Basophils # (A) 0.07 X 10*3/uL (0.00-0.10); Basophils % (A) 0.7 %; Eosinophils % (A) 2.1 %; HCT 35.8 % (37.2-46.3); HGB 10.9 g/dL (12.0-15.0); Lymphocytes # (A) 2.79 X 10*3/uL (0.90-5.00); Lymphocytes % (A) 28.9 %; MCH 25.7 pg (27.0-32.0); MCHC 30.4 g/dL (32.0-37.0); MCV 84.4 FL (80.0-97.0); Mean Platelet Volume 11.1 FL (9.5-12.2); Monocytes # (A) 0.58 X 10*3/uL (0.20-1.00); NRBC Per 100 WBC 0 X 10*3/uL (0.00-0.01); Neutrophils # (A) 5.99 X 10*3/uL (1.80-7.70); Neutrophils % (A) 62.1 %; Platelet Count 277 X 10*3/uL (140-440); RBC 4.24 X 10*6/uL (4.10-5.20); RDW 14.8 % (11.5-14.5); WBC 9.65 X 10*3/uL (4.50-10.00)
[2024-11-01 13:06] LABS: Microalbumin Creatinine Ratio <8 mg/g Cr (0-30)
[2024-11-01 13:18] LABS: Blood Urea Nitrogen 20.9 mg/dL (9.0-27.0); Carbon Dioxide 26.6 mmol/L (21.6-31.8); Chloride 106 mmol/L (96-109); Glucose 99 mg/dL (70-110); Iron 34 UG/DL (50-170); Magnesium 1.9 mg/dL (1.5-2.4); Potassium 4.6 mmol/L (3.5-5.5); Sodium 142 mmol/L (135-145); Total Iron Binding Capacity 358 UG/DL (228-460); Uric Acid 5.8 mg/dL (2.9-7.7)
[2024-11-01 13:19] LABS: ALT 12 U/L (8-44); AST 18 U/L (13-35); Alkaline Phosphatase 130 U/L (41-126); Calcium 9.7 mg/dL (8.7-10.3); Ferritin 37.9 ng/mL (10.0-291.0); Globulin 2.5 g/dL (1.6-3.3); Total Bilirubin 0.2 mg/dL (0.3-1.2); Total Protein 6.5 g/dL (6.2-8.2)
[2024-11-01 14:08] LABS: Appearance,Urine Clear (Clear); Bilirubin,Urine Negative (Negative); Blood,Urine Negative (Negative); Color,Urine Yellow (Yellow); Ketones,Urine Negative (Negative); Nitrite,Urine Negative (Negative); Specific Gravity,Urine 1.019 (1.001-1.030); Urobilinogen,Urine 0.2 E.U./DL
[2024-11-03 16:30] LABS: Free Kappa Lt Chain Qnt, Serum 3.37 mg/dL (0.33-1.94)
== END | disposition home or self-care (01) ==
LOC: LABWHC1 07:51
PROVIDERS: ATTEND Internal Medicine
DX: N18.32 Chronic kidney disease, stage 3b (principal)
CPT/HCPCS: 36415; 80053; 81003; 82043; 82306; 82570; 82728; 83540; 83550; 83735; 83883; 83970; 84100; 84166; 84550; 85025; 86334

== ENCOUNTER → 2025-01-23 | Outpatient (CLI) | payer MEDICARE, OTHER ==
--- NOTE | 2025-01-26 07:22 | MM ---
Reason for Exam: Screening (asymptomatic). Last mammogram was performed 2 year(s) and 1 month(s) ago. Patient History: Menarche at age 14. First Full-Term at age 20. Postmenopausal. Estrogen for 1 month. Hormonal Contraceptives for 1 year, 6 months, from age 19 until age 21. Paternal aunt had breast cancer, age 50. Risk Values: Mary 5 year model risk: 1.7%. NCI Lifetime model risk: 5.5%. Prior Study Comparison: 11/23/2020 Bilateral Screening Mammogram, [facility]. 12/20/2021 Bilateral Screening Mammogram, [facility]. 12/26/2022 Bilateral MG 3D screening mammo w/cad, [facility]. Tissue Density: There are scattered areas of fibroglandular density. Findings: Analyzed By CAD. There is no suspicious group of microcalcifications or new suspicious mass in either breast. Overall Assessment: Benign, BI-RAD 2 Management: Screening Mammogram of both breasts in 1 year. . Patient should continue monthly self-breast exams. A clinical breast exam by your physician is recommended on an annual basis. This exam should not preclude additional follow-up of suspicious palpable abnormalities. Note on Mary scores and lifetime risk: 1. A Mary score greater than 3% is considered moderate risk. If this is the case, consider specialist referral to assess eligibility for a risk reducing agent. 2. If overall lifetime risk for the development of breast cancer is 20% or higher, the patient may qualify for future screening with alternating mammogram and breast MRI. [facility], , 01/26/2025 7:19 AM. Electronically signed and approved by: Tru Goins M.D. Radiologis
== END | disposition home or self-care (01) ==
LOC: RADMAMWWP 13:29
PROVIDERS: ATTEND Obstetrics & Gynecology
DX: Z12.31 Encounter for screening mammogram for malignant neoplasm of breast (principal); R92.323 Mammographic fibroglandular density, bilateral breasts; Z78.0 Asymptomatic menopausal state; Z80.3 Family history of malignant neoplasm of breast; Z92.0 Personal history of contraception
CPT/HCPCS: 77063; 77067

== ENCOUNTER → 2025-02-03 | Outpatient (CLI) | payer MEDICARE, OTHER ==
[2025-02-03 15:18] VITALS: BP 124/80; PULSE 80; RESP 18; TEMP 98.2
--- NOTE | 2025-02-03 20:35 | P.PN ---
Progress Note - Text Progress Note Date: 02/03/25 This is a 69-year-old female patient with known history of obstructive sleep apnea. The patient is coming in for a follow-up regarding her KENIA. The patient was diagnosed having severe KENIA in the past and the patient has undergone bariatric surgery/gastric bypass surgery and this was done in [facility] many years back. Since then, the patient has lost weight and over the years the patient has lost considerable amount of weight. Note that her weight has been as high as 365 pounds. I noted a considerable loss in her body weight and her current weight is down to 310. Noted, the patient's most recent polysomnography that was done following her bariatric surgery showed residual obstructive sleep apnea with an AHI of 22. This was based on a sleep study that was done on 10/02/2021. Along with the weight loss, the patient has encountered some difficulty tolerating her CPAP and based on that, her compliance she has gone down. Based on 365 days of compliance data collected on the machine, the patient has used the machine a total of 115 days and she has 2 more than 4 hours 80/365 days. The patient has been averaging around 5 hours of CPAP use per night with a leak of 48 L/min. Her current CPAP pressure is at 10 cm of water and she is using an AirFit P10 medium size nasal pillows. She feels better while on the CPAP machine. She is committed to lose more weight. She has other comorbidities include hypertension, hyperlipidemia and bronchial asthma. Fatigue and tiredness and sleepiness is improved while being on CPAP therapy. Her current [place] score is down to 6. Objective - Exam BP is 124/80 with a pulse of 80 respiration of 18 and a temperature of 98.2. Weight is 310. [place] score is at 3. BMI is 51.5. Gen. appearance obese, , comfortable and the patient is not having any distress at this point in time. The patient appeared well nourished and normally developed. Vital signs as documented. Head exam is unremarkable. No scleral icterus or corneal arcus noted. Neck is without jugular venous distension, thyromegaly, or carotid bruits. Carotid upstrokes are brisk bilaterally. Lungs are clear to auscultation and percussion. Cardiac exam reveals the PMI to be normally sized and situated. Rhythm is regular. First and second heart sounds normal. No murmurs, rubs or gallops. Abdominal exam reveals normal bowel sounds, no masses, no organomegaly and no aortic enlargement. Abdomen is obese and the patient's organs are not accurately palpated.. Extremities are nonedematous and both femoral and pedal pulses are normal.Examination of the skin revealed no evidence of significant rashes, suspicious appearing nevi or other concerning lesions.Neurologically, the patient is awake and alert and the patient does not have any focal neurological deficit. Cranial nerves are essentially intact. Assessment and Plan Plan: 1 obstructive sleep apnea, moderately severe with an AHI of 22, worse during REM sleep, based on a sleep study was done on 10/02/2021. Post bariatric surgery, the patient has lost considerable mount of weight and her current BMI is down to 51 and her weight is down to 310. This is affected her ability to tolerate CPAP therapy at a pressure of 10 cm of water and as such her compliancy has gone down. She is coming in for further advice in this regard. 2 morbid obesity post bariatric surgery, continues to lose weight and her curren t weight is down to 310 pounds 3 chronic hypersomnia, improved 4 bronchial asthma 5 hypertension 6 hyperlipidemia 7 acid reflux Plan Encourage further weight loss Continue CPAP therapy and I am going to switch this patient to an APAP mode pressures of 4/10 cm of water. This should allow the CPAP machine to treat this patient at a lower level of pressure especially with her ongoing weight loss. This may also improve her overall tolerability excellent response. We will ask the patient to be more compliant and utilizes machine even when she is taking naps during the day Keep the same mask interface which is an Airfit P10 on large size nasal pillows We'll continue to follow
== END ==
LOC: 3 N SLEEP 14:04
PROVIDERS: ATTEND Internal Medicine Critical Care Medicine
DX: E66.01 Morbid (severe) obesity due to excess calories (principal); G47.10 Hypersomnia, unspecified; J45.909 Unspecified asthma, uncomplicated; G47.33 Obstructive sleep apnea (adult) (pediatric); E78.5 Hyperlipidemia, unspecified; I10 Essential (primary) hypertension; K21.9 Gastro-esophageal reflux disease without esophagitis; Z68.43 Body mass index [BMI] 50.0-59.9, adult; Z91.048 Other nonmedicinal substance allergy status; Z88.8 Allergy status to other drugs, medicaments and biological substances
CPT/HCPCS: 99212

== ENCOUNTER 2025-03-01 07:41 | Emergency (ER) | payer MEDICARE, OTHER ==
[2025-03-01 07:50] VITALS: TEMP 97.8
--- NOTE | 2025-03-01 08:06 | ED ---
Fall HPI - General Chief Complaint: Fall Stated Complaint: fall Time Seen by Provider: 03/01/25 08:03 Source: patient, RN notes reviewed Mode of arrival: ambulatory - History of Present Illness Initial Comments: 70-year-old female presenting the ER for evaluation of a fall. Patient states yesterday she was attempting to buy a car and it was "talking business" with a gentleman in his garage. She attempted to stand up bracing herself against the chair. She states the chair fell out from underneath her causing her to fall landing on her bottom. She states she subsequently fell backwards hitting the back of her head. She denies loss of consciousness or blood thinner use. Patient also reports landing on her right shoulder and is complaining of continued pain. Patient is prescribed Percocet and did take 1 prior to arrival. She still complaining of continued pain. Patient did take a Percocet and methocarbamol last night which helped her get sleep. She denies any p aresthesias to bilateral upper or lower extremities. Patient denies any nausea, vomiting, dizziness, lightheadedness since incident. Patient has no other complaints. Patient typically ambulates with a cane. - Related Data Home Medications Medication Instructions Recorded Confirmed allopurinoL [Zyloprim] 100 mg PO DAILY 04/09/24 01/01/25 rOPINIRole HCL [Requip] 0.25 mg PO HS 04/09/24 01/01/25 methocarbamoL 500 mg PO TID PRN 05/09/24 01/01/25 DULoxetine HCL [Cymbalta] 60 mg PO DAILY PRN 05/16/24 01/01/25 Ergocalciferol [Vitamin D2 (1250 1,250 mcg PO MADRIGAL 05/16/24 01/01/25 Mcg = 05953 Iu)] Linaclotide [Linzess] 145 mcg PO DAILY PRN 05/16/24 01/01/25 Omeprazole [PriLOSEC] 40 mg PO HS 07/02/24 01/01/25 Albuterol Inhaler [Ventolin Hfa 1 - 2 puff INHALATION Q6H PRN 09/05/24 01/01/25 Inhaler] Fluticasone/Umeclidin/Vilanter 1 inhalation INHALATION DAILY 09/05/24 01/01/25 [Trelegy Ellipta 100-62.5-25] Irbesartan/Hydrochlorothiazide 1 each PO DAILY 09/05/24 01/01/25 [Irbesartan-Hctz 300-12.5 mg Tb] Magnesium Oxide [Magnesium] 500 mg PO DAILY 09/05/24 01/01/25 amLODIPine 10 mg PO DAILY 09/05/24 01/01/25 Previous Rx's Medication Instructions Recorded bisacodyL [Dulcolax] 5 mg PO DAILY PRN #10 tab 05/15/24 Aspirin 81 mg PO BID #60 tab 09/12/24 Ondansetron [Zofran] 4 mg PO Q6HR PRN #30 tab 09/12/24 Sennosides-Docusate Sodium 1 tab PO BID PRN #60 tablet 09/12/24 [Senokot-S] oxyCODONE-APAP 5-325MG [Percocet 1 tab PO Q6HR PRN #28 tab 09/12/24 5-325 mg] Clindamycin Topical Soln 1 applic TOPICAL BID PRN #30 ml 12/16/24 [Cleocin-T Topical Soln] Lidocaine 5% Patch [Lidoderm 5% 1 patch TOPICAL DAILY #30 patch 03/01/25 Patch] Orphenadrine [Norflex] 100 mg PO Q12H PRN #10 tab 03/01/25 Allergies Allergy/AdvReac Type Severity Reaction Status Date / Time nickel Allergy Unknown Rash/Hives Verified 03/01/25 07:50 gabapentin AdvReac Hallucinati Verified 03/01/25 07:50 ons Review of Systems ROS Statement: Those systems with pertinent positive or pertinent negative responses have been documented in the HPI. ROS Other: All systems not noted in ROS Statement are negative. Past Medical History Past Medical History: Asthma, GERD/Reflux, GI Bleed, Hypertension, Rheumatoid Arthritis (RA), Sleep Apnea/CPAP/BIPAP Additional Past Medical History / Comment(s): HEART MURMUR, ANEMIA, hiatal hernia, and chronic back pain, does use CPAP. 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 History of Any Multi-Drug Resistant Organisms: None Reported Past Surgical History: Bariatric Surgery, Cholecystectomy, Hernia Repair, Joint Replacement, Tonsillectomy, Tubal Ligation, Uterine Ablation Additional Past Surgical History / Comment(s): BILATERAL TOTAL KNEE REPLACEMENTS, D&C, upper endoscopy with esophageal dilatation X2, gastric bypass. Right hip replacement. Colonoscopy 2020., panniculectomy/umbilical hernia 05/12/24 Past Anesthesia/Blood Transfusion Reactions: Previous Problems w/ Anesthesia, Family History of Problems w/ Anesthesia Additional Past Anesthesia/Blood Transfusion Reaction / Comment(s): Pt states awoke during surgery attributed to Sleep Apnea. Past Psychological History: Anxiety Smoking Status: Never smoker Past Alcohol Use History: None Reported Past Drug Use History: None Reported - Past Family History Mother Family Medical History: Diabetes Mellitus Brother(s) Family Medical History: Seizure Disorder Additional Family Medical History / Comment(s): from seizure in 2020. Father Family Medical History: Cancer Additional Family Medical History / Comment(s): LIVER CANCER, paternal aunt had breast cancer and an uncle had colon cancer. Son(s) Family Medical History: Seizure Disorder Additional Family Medical History / Comment(s): from seizure Sister(s) Family Medical History: Deep Vein Thrombosis (DVT) General Exam Limitations: no limitations General appearance: alert, in no apparent distress Head exam: Present: atraumatic, normocephalic, normal inspection Eye exam: Present: normal appearance, PERRL, EOMI. Absent: scleral icterus, conjunctival injection, periorbital swelling Pupils: Present: normal accommodation Respiratory exam: Present: normal lung sounds bilaterally. Absent: respiratory distress, wheezes, rales, rhonchi, stridor Cardiovascular Exam: Present: regular rate, normal rhythm, normal heart sounds. Absent: systolic murmur, diastolic murmur, rubs, gallop, clicks Extremities exam: Present: normal inspection, full ROM, tenderness (right AC joint), normal capillary refill (2+ bilateraly radial, DP/PT pulses) Neurological exam: Present: alert, oriented X3, CN II-XII intact Skin exam: Present: warm, dry, intact, normal color. Absent: rash Course Vital Signs 03/01/25 03/01/25 07:47 09:23 Temperature 97.8 F 97.8 F Pulse Rate 88 75 Respiratory 20 18 Rate Blood Pressure 120/76 121/71 O2 Sat by Pulse 99 99 Oximetry Medical Decision Making - Medical Decision Making Was pt. sent in by a medical professional or institution (, PA, VACCINE KEY CUSTOMER LEADER, urgent care, hospital, or retirement...) When possible be specific @ -No Did you speak to anyone other than the patient for history (EMS, parent, family, police, friend...)? What history was obtained from this source @ -No Did you review nursing and triage notes (agree or disagree)? Why? @ -I reviewed and agree with nursing and triage notes Were old charts reviewed (outside hosp., previous admission, EMS record, old EKG, old radiological studies, urgent care reports/EKG's, retirement records)? Report findings @ -No old charts were reviewed Differential Diagnosis (chest pain, altered mental status, abdominal pain women, abdominal pain men, vaginal bleeding, weakness, fever, dyspnea, syncope, headache, dizziness, GI bleed, back pain, seizure, CVA, palpatations, mental health, musculoskeletal)? @ -Fracture, dislocation, contusion, hematoma, intracranial hemorrhage, concussion, abrasion, laceration this list does not like to be all-inclusive EKG interpreted by me (3pts min.). @ -None done X-rays interpreted by me (1pt min.). 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 No acute fractures or dislocations. Lumbar spine xrays negative for acute fractures or dislocations. Degenerative disc disease noted. CT interpreted by me (1pt min.). @ -CT brain negative for acute intracranial hemorrhage or midline shift. U/S interpreted by me (1pt. min.). @ -None done What testing was considered but not performed or refused? (CT, X-rays, U/S, labs)? Why? @ -None What meds were considered but not given or refused? Why? @ -None Did you discuss the management of the patient with other professionals (professionals i.e. , PA, VACCINE KEY CUSTOMER LEADER, lab, RT, psych nurse, sr. social media & mobile manager, freight inspector, teacher, chief merchandising officer, case picker)? Give summary @ -No Was smoking cessation discussed for >3mins.? @ -No Was critical care preformed (if so, how long)? @ -No Were there social determinants of health that impacted care today? How? (Homelessness, low income, unemployed, alcoholism, drug addiction, transportation, low edu. Level, literacy, decrease access to med. care, longterm, rehab)? @ -No Was there de-escalation of care discussed even if they declined (Discuss DNR or withdrawal of care, Hospice)? DNR status @ -No What co-morbidities impacted this encounter? (DM, HTN, Smoking, COPD, CAD, Cancer, CVA, ARF, Chemo, Hep., AIDS, mental health diagnosis, sleep apnea, morbid obesity)? @ -None Was patient admitted / discharged? Hospital course, mention meds given and route, prescriptions, significant lab abnormalities, going to OR and other pertinent info. @ -[Discharge. 70-year-old female presented to ER for evaluation of fall. Vital stable. Upon my evaluation, patient resting comfortably on stretcher no signs of acute distress. Patient is neurovascularly intact. No red flag back pain symptoms indicative of cauda equina syndrome. Given patient's age and reported head injury CT completed and negative for acute intracranial hemorrhage or midline shift. Shoulder x-ray showing osteoarthritis right AC joint and glenohumeral joint. No acute fractures or dislocations. Lumbar spine x-rays negative for acute fractures or dislocations. Patient received symptomatic treatment with IM Norflex and ibuprofen, with improvement. Upon reevaluation, patient resting comfortably on stretcher no signs of acute distress. Patient educated on imaging results. Patient requesting Norflex and lidocaine patch prescription at discharge, both sent to patient's pharmacy. I advised continued use of [id number] ibuprofen and Tylenol with pain control. Return parameters discussed. Patient discharged in stable condition with follow-up to PCP. Patient verbally expressed understanding and agreement with care plan. Case discussed with ED attending, Dr. Stiles. Undiagnosed new problem with uncertain prognosis? @ -No Drug Therapy requiring intensive monitoring for toxicity (Heparin, Nitro, Insulin, Cardizem)? @ -No Were any procedures done? @ -No Diagnosis/symptom? @ -Fall Acute, or Chronic, or Acute on Chronic? @ -Acute Uncomplicated (without systemic symptoms) or Complicated (systemic symptoms)? @ -Uncomplicated Side effects of treatment? @ -No Exacerbation, Progression, or Severe Exacerbation? @ -No Poses a threat to life or bodily function? How? (Chest pain, USA, ME, pneumonia, PE, COPD, DKA, ARF, appy, cholecystitis, CVA, Diverticulitis, Homicidal, Brenna cidal, threat to staff... and all critical care pts) @ -Low - Radiology Data Radiology results: report reviewed, image reviewed Disposition Clinical Impression: Fall Disposition: HOME SELF-CARE Condition: Stable Instructions (If sedation given, give patient instructions): Fall Prevention for Older Adults (ED) Additional Instructions: Follow-up closely with PCP. Do not take Norflex with methocarbamol. If these medications may make you drowsy please be aware of this and do not operate heavy machinery while taking these medications. Return to the ER for any new or worsening concerns Prescriptions: Lidocaine 5% Patch [Lidoderm 5% Patch] 1 patch TOPICAL DAILY #30 patch Orphenadrine [Norflex] 100 mg PO Q12H PRN #10 tab PRN Reason: Muscle Pain Is patient prescribed a controlled substance at d/c from ED?: No Referrals: Andressa Purvis MD [Primary Care Provider] - 1-2 days Time of Disposition: 09:10
[2025-03-01] MEDS: IBUPROFEN 800 MG TAB PO STA (08:15)
[2025-03-01] MEDS: ORPHENADRINE 30 MG/ML 2 ML VIAL IM STA (08:17)
--- NOTE | 2025-03-01 08:48 | XR ---
EXAMINATION TYPE: XR shoulder complete RT DATE OF EXAM: 03/01/2025 CLINICAL INDICATION: Female, 70 years old with history of fall, pain TECHNIQUE: Three views of the right shoulder are obtained. COMPARISON: Prior right shoulder x-ray February 10, 2015 FINDINGS: There is no acute fracture/dislocation evident in the right shoulder. Moderate to advanced narrowing of the acromioclavicular joint. Advanced narrowing at the glenohumeral joint with subchond ral cystic change. The visualized ribs are intact. Overlying soft tissue is unremarkable. IMPRESSION: There is no acute fracture or dislocation in the right shoulder. [facility], , 03/01/2025 8:46 AM
--- NOTE | 2025-03-01 08:50 | XR ---
EXAMINATION TYPE: XR lumbar spine 2 or 3V DATE OF EXAM: 03/01/2025 CLINICAL INDICATION: Female, 70 years old with history of fall, pain TECHNIQUE: Frontal and lateral images of the lumbar spine are obtained. COMPARISON: Lumbar spine x-ray 2013 FINDINGS: There are 5 lumbar type vertebral bodies redemonstrated. The lumbar spine shows some reve rsal of normal lumbar lordosis without evidence of acute fracture or dislocation. There is levoconvex scoliosis centered at L3-L4 level now seen. Vertebral body heights are within normal limits. There is mild to moderate multilevel disc space narrowing and moderate to severe multilevel anterior and la teral spurring now present. The overlying soft tissue appears unremarkable. IMPRESSION: No acute displaced fracture is seen in the lumbar spine. [facility], , 03/01/2025 8:47 AM
--- NOTE | 2025-03-01 08:51 | CT ---
EXAMINATION TYPE: CT brain wo con DATE OF EXAM: 03/01/2025 COMPARISON: CT brain 2009 CLINICAL INDICATION: Female, 70 years old with history of fall with head injury, Fall, hit head x 1 d ay ago. lower back pain TECHNIQUE: CT scan of the head is performed without contrast. CT DLP: 1170.7 mGycm. Automated Exposure Control for Dose Reduction was Utilized. FINDINGS: Some artifact at skull base is seen. There is no acute intracranial hemorrhage or midline shift identified. There is mild diffuse ventricular and sulcal prominence redemonstrated. Lama-white matter differentiation fairly well preserved. The calvarium is intact. The globes are intact and the visualized sinuses are clear. IMPRESSION: No acute intracranial hemorrhage or midline shift. [facility], , 03/01/2025 8:49 AM
[2025-03-01 09:25] VITALS: BP 121/71; PULSE 75; RESP 18
== END 2025-03-01 09:23 | disposition home or self-care (01) ==
LOC: SUPCPDRO 07:41 → EC 07:41
DX: M19.011 Primary osteoarthritis, right shoulder (principal); Z91.048 Other nonmedicinal substance allergy status; Z88.8 Allergy status to other drugs, medicaments and biological substances; W07.XXXA Fall from chair, initial encounter; Y92.59 Other trade areas as the place of occurrence of the external cause
CPT/HCPCS: 72100; 73030; 70450; 99284; 96372; J2360

== ENCOUNTER → 2025-03-04 | Outpatient (CLI) | payer MEDICARE, OTHER ==
[2025-03-04 19:01] LABS: Basophils # (A) 0.07 X 10*3/uL (0.00-0.10); Basophils % (A) 0.7 %; Eosinophils # (A) 0.21 X 10*3/uL (0.04-0.35); Eosinophils % (A) 2.1 %; HCT 39.6 % (37.2-46.3); HGB 12.4 g/dL (12.0-15.0); Lymphocytes # (A) 2.69 X 10*3/uL (0.90-5.00); Lymphocytes % (A) 27.5 %; MCH 27.6 pg (27.0-32.0); MCHC 31.3 g/dL (32.0-37.0); Mean Platelet Volume 10.9 FL (9.5-12.2); Monocytes # (A) 0.71 X 10*3/uL (0.20-1.00); Monocytes % (A) 7.3 %; NRBC Per 100 WBC 0 X 10*3/uL (0.00-0.01); Neutrophils # (A) 6.06 X 10*3/uL (1.80-7.70); Neutrophils % (A) 62.1 %; Platelet Count 270 X 10*3/uL (140-440); RDW 16.1 % (11.5-14.5); WBC 9.77 X 10*3/uL (4.50-10.00)
[2025-03-04 19:26] LABS: % Iron Saturation 21.04 (12.00-45.00); ALT 20 U/L (8-44); AST 25 U/L (13-35); Albumin 4.2 g/dL (3.8-4.9); Albumin/Globulin Ratio 1.68 Ratio (1.60-3.17); Alkaline Phosphatase 131 U/L (41-126); BUN/Creat Ratio 17.59 Ratio (12.00-20.00); Blood Urea Nitrogen 29.9 mg/dL (9.0-27.0); Calcium 9.6 mg/dL (8.7-10.3); Carbon Dioxide 23.9 mmol/L (21.6-31.8); Chloride 105 mmol/L (96-109); Globulin 2.5 g/dL (1.6-3.3); Glucose 93 mg/dL (70-110); Iron 69 UG/DL (50-170); Magnesium 2.4 mg/dL (1.5-2.4); Phosphorus 3.9 mg/dL (2.4-5.1); Potassium 5.6 mmol/L (3.5-5.5); Sodium 141 mmol/L (135-145); Total Bilirubin 0.3 mg/dL (0.3-1.2); Total Iron Binding Capacity 328 UG/DL (228-460); Total Protein 6.7 g/dL (6.2-8.2); Uric Acid 6.2 mg/dL (2.9-7.7)
[2025-03-04 23:39] LABS: Microalbumin Creatinine Ratio <9 mg/g Cr (0-30)
== END | disposition home or self-care (01) ==
LOC: LABWHC1 16:12
PROVIDERS: ATTEND Internal Medicine
DX: N18.32 Chronic kidney disease, stage 3b (principal)
CPT/HCPCS: 36415; 80053; 82043; 82306; 82570; 82728; 83540; 83550; 83735; 83970; 84100; 84550; 85025